=== PATIENT | female | born 1950 | race Caucasian/White ===

== ENCOUNTER 2017-09-08 15:56 | Emergency (ER) | payer MEDICARE ==
[2017-09-08] MEDS ORDERED: Sodium Chloride 0.9% 10 ML Syringe FLUSH PRN (16:03)
[2017-09-08] MEDS ORDERED: Acetaminophen 325 MG Tab PO ONE (16:05)
[2017-09-08 16:07] VITALS: BP 166/83
--- NOTE | 2017-09-08 17:39 | EDM.PDOC ---
ED HPI GENERAL MEDICAL PROBLEM - General Chief Complaint: Neurological Problem Stated Complaint: [facility] Time Seen by Provider: 09/08/17 16:02 Source of Information: Reports: Patient, EMS, Family, Provider History Limitations: Reports: No Limitations - History of Present Illness INITIAL COMMENTS - FREE TEXT/NARRATIVE: The patient presents with a headache. This started about 1 week ago. Her last time known well was FridaySeptember 01 at around 8am. She has some nausea and vomiting. She has no numbness or weakness. She has no blurred vision or double vision. She has no fever, chills, cough, congestion or runny nose, chest pain, shortness of breath, and abdominal pain. She did have some nausea and she vomited. She has a history of TIAs. Her says she has been seeing things and confused. She also has been very weak and he needs a wheel chair at home. Onset: Gradual Duration: Week(s): (1) Location: Reports: Head Quality: Reports: Ache Severity: Moderate Improves with: Reports: None Worsens with: Reports: None Associated Symptoms: Reports: Headaches, Nausea/Vomiting. Denies: Chest Pain, Fever/Chills, Shortness of Breath Treatments BOTTOM FINISHER: Reports: IV/IO Headache Pain Score (Numeric/FACES): 8 - Related Data Allergies Allergy/AdvReac Type Severity Reaction Status Date / Time No Known Allergies Allergy Verified 09/08/17 16:03 Home Meds: Home Meds Allopurinol [Zyloprim] 100 mg PO DAILY 09/08/17 [History] Aspirin [Halfprin] 81 mg PO DAILY 09/08/17 [History] Canagliflozin [Invokana] 300 mg PO DAILY 09/08/17 [History] Chlorthalidone 25 mg PO DAILY 09/08/17 [History] Clopidogrel [Plavix] 75 mg PO DAILY 09/08/17 [History] Colchicine 0.6 mg PO DAILY 09/08/17 [History] DULoxetine [Cymbalta] 30 mg PO DAILY 09/08/17 [History] Gabapentin [Neurontin] 400 mg PO TID 09/08/17 [History] Insulin Regular, Human [Humulin R U-500 Kwikpen] 500 unit SQ BID 09/08/17 [ History] Linaclotide [Linzess] 290 mcg PO DAILY 09/08/17 [History] Losartan [Cozaar] 100 mg PO DAILY 09/08/17 [History] Melatonin 5 mg PO BEDTIME 09/08/17 [History] Nystatin/Triamcin [Nystatin-Triamcinolone Cream] 60 gm TP BID 09/08/17 [History] Pantoprazole [ProTONIX] 40 mg PO DAILY 09/08/17 [History] Pramipexole [Mirapex] 1 tab PO TID 09/08/17 [History] Propranolol [Inderal LA 24 Hr] 80 mg PO DAILY 09/08/17 [History] Rosuvastatin [Crestor] 20 mg PO DAILY 09/08/17 [History] amLODIPine [Norvasc] 5 mg PO DAILY 09/08/17 [History] Past Medical History Cardiovascular History: Reports: High Cholesterol, Hypertension Gastrointestinal History: Reports: GERD Genitourinary History: Reports: UTI, Recurrent Endocrine/Metabolic History: Reports: Diabetes, Type II - Past Surgical History Cardiovascular Surgical History: Reports: Coronary Artery Bypass GI Surgical History: Reports: Appendectomy, Cholecystectomy Social & Family History - Tobacco Use Smoking Status *Q: Never Smoker Years of Tobacco use: 15 Used Tobacco, but Quit: Yes Month Tobacco Last Used: 2007 - Alcohol Use Days Per Week of Alcohol Use: 0 - Recreational Drug Use Recreational Drug Use: No ED ROS GENERAL - Review of Systems Review Of Systems: See Below Constitutional: Reports: No Symptoms HEENT: Reports: No Symptoms Respiratory: Reports: No Symptoms Cardiovascular: Reports: No Symptoms Endocrine: Reports: No Symptoms GI/Abdominal: Reports: Nausea, Vomiting. Denies: Abdominal Pain, Diarrhea : Reports: No Symptoms Musculoskeletal: Reports: No Symptoms ED EXAM, NEURO - Physical Exam Exam: See Below Exam Limited By: No Limitations General Appearance: Alert, No Apparent Distress Eye Exam: Bilateral Eye: EOMI Ears: Normal External Exam Nose: Normal Inspection Head Exam: Atraumatic, Normocephalic Neck: Normal Inspection Respiratory/Chest: No Respiratory Distress, Lungs Clear, Normal Breath Sounds Cardiovascular: Regular Rate, Rhythm, No Edema, No Murmur GI/Abdominal: Soft, Non-Tender, No Organomegaly, No Mass Neurological: Alert, No Motor/Sensory Deficits, Oriented x 3 Extremities: Normal Inspection EKG INTERPRETATION EKG Date: 09/08/17 Time: 16:19 Rhythm: Other (Sinus tachycardia) Rate (Beats/Min): 102 [place]: Normal P-Wave: Present QRS: Normal ST-T: Depressed (in I and aVL) QT: Normal Course - Vital Signs Last Recorded V/S: Last Vital Signs Temp 97.2 F 09/08/17 16:03 Pulse 100 09/08/17 16:03 Resp 16 09/08/17 16:03 BP 166/83 H 09/08/17 16:03 Pulse Ox 95 09/08/17 16:03 - Orders/Labs/Meds Orders: Active Orders 24 hr Category Date Time Status Accu Check [Blood Glucose Check, Bedside] [RC] ONETIME Care 09/08/17 16:18 Active Cardiac Monitoring [RC] . DIRECTED Care 09/08/17 16:03 Active EKG Documentation Completion [RC] STAT Care 09/08/17 16:04 Active Peripheral IV Care [RC] . DIRECTED Care 09/08/17 16:04 Active Head wo Cont [CT] Stat Exams 09/08/17 16:04 Taken Sodium Chloride 0.9% [Saline Flush] Med 09/08/17 16:03 Active 10 ml FLUSH ASDIRECTED PRN Peripheral IV Insertion Adult [OM.PC] Stat Oth 09/08/17 16:03 Ordered Medication Orders Sodium Chloride (Saline Flush) 10 ml FLUSH ASDIRECTED PRN PRN Reason: Keep Vein Open Last Admin: 09/08/17 16:16 Dose: 10 ml Labs: Laboratory Tests 09/08/17 09/08/17 09/08/17 Range/Units 16:20 16:31 16:31 WBC 11.12 H (3.98-10.04) K/mm3 RBC 6.32 H (3.98-5.22) M/mm3 Hgb 15.9 H (11.2-15.7) gm/L Hct 47.9 H (34.1-44.9) % MCV 75.8 L (79.4-94.8) fl MCH 25.2 L (25.6-32.2) pg MCHC 33.2 (32.2-35.5) g/dl RDW Std Deviation 45.8 (36.4-46.3) fL Plt Count 243 (182-369) K/mm3 MPV 9.6 (9.4-12.3) fl Neut % (Auto) 80.2 H (34.0-71.1) % Lymph % (Auto) 9.1 L (19.3-51.7) % [place] % (Auto) 10.0 (4.7-12.5) % Eos % (Auto) 0.2 L (0.7-5.8) Baso % (Auto) 0.2 (0.1-1.2) % Neut # (Auto) 8.93 H (1.56-6.13) K/mm3 Lymph # (Auto) 1.01 L (1.18-3.74) K/mm3 [place] # (Auto) 1.11 H (0.24-0.36) K/mm3 Eos # (Auto) 0.02 L (0.04-0.36) K/mm3 Baso # (Auto) 0.02 (0.01-0.08) K/mm3 Manual Slide Review Abnormal smear PT 10.8 (8.0-13.0) SECONDS INR 1.01 APTT 27 (22-36) SECONDS ABG Carboxyhemoglobin (0.00-1.50) %THgb Sodium (136-145) mEq/L Potassium (3.5-5.1) mEq/L Chloride (98-107) mEq/L Carbon Dioxide (21-32) mEq/L Anion Gap (5-15) BUN (7-18) mg/dL Creatinine (0.55-1.02) mg/dL Est Cr Clr Drug Dosing mL/min Estimated GFR (MDRD) (>60) mL/min BUN/Creatinine Ratio (14-18) Glucose (80-115) mg/dL POC Glucose 226 H (80-115) mg/dL Calcium (8.5-10.1) mg/dL Total Bilirubin (0.2-1.0) mg/dL AST (15-37) U/L ALT (14-59) U/L Alkaline Phosphatase (46-116) U/L Troponin I (0.00-0.056) ng/mL Total Protein (6.4-8.2) g/dl Albumin (3.4-5.0) g/dl Globulin gm/dL Albumin/Globulin Ratio (1-2) 09/08/17 09/08/17 Range/Units 16:31 16:31 WBC (3.98-10.04) K/mm3 RBC (3.98-5.22) M/mm3 Hgb (11.2-15.7) gm/L Hct (34.1-44.9) % MCV (79.4-94.8) fl MCH (25.6-32.2) pg MCHC (32.2-35.5) g/dl RDW Std Deviation (36.4-46.3) fL Plt Count (182-369) K/mm3 MPV (9.4-12.3) fl Neut % (Auto) (34.0-71.1) % Lymph % (Auto) (19.3-51.7) % [place] % (Auto) (4.7-12.5) % Eos % (Auto) (0.7-5.8) Baso % (Auto) (0.1-1.2) % Neut # (Auto) (1.56-6.13) K/mm3 Lymph # (Auto) (1.18-3.74) K/mm3 [place] # (Auto) (0.24-0.36) K/mm3 Eos # (Auto) (0.04-0.36) K/mm3 Baso # (Auto) (0.01-0.08) K/mm3 Manual Slide Review PT (8.0-13.0) SECONDS INR APTT (22-36) SECONDS ABG Carboxyhemoglobin 2.3 H (0.00-1.50) %THgb Sodium 133 L (136-145) mEq/L Potassium 3.9 (3.5-5.1) mEq/L Chloride 98 (98-107) mEq/L Carbon Dioxide 21 (21-32) mEq/L Anion Gap 17.9 H (5-15) BUN 23 H (7-18) mg/dL Creatinine 1.3 H (0.55-1.02) mg/dL Est Cr Clr Drug Dosing 46.65 mL/min Estimated GFR (MDRD) 41 (>60) mL/min BUN/Creatinine Ratio 17.7 (14-18) Glucose 244 H (80-115) mg/dL POC Glucose (80-115) mg/dL Calcium 11.2 H (8.5-10.1) mg/dL Total Bilirubin 0.9 (0.2-1.0) mg/dL AST 15 (15-37) U/L ALT 11 L (14-59) U/L Alkaline Phosphatase 89 (46-116) U/L Troponin I 0.036 (0.00-0.056) ng/mL Total Protein 7.6 (6.4-8.2) g/dl Albumin 3.5 (3.4-5.0) g/dl Globulin 4.1 gm/dL Albumin/Globulin Ratio 0.9 L (1-2) Meds: Medications Generic Name Dose Route Start Last Admin Trade Name Freq PRN Reason Stop Dose Admin Sodium Chloride 10 ml 09/08/17 16:03 09/08/17 16:16 Saline Flush FLUSH 10 ml ASDIRECTED PRN Administration Keep Vein Open Discontinued Medications Generic Name Dose Route Start Last Admin Trade Name Freq PRN Reason Stop Dose Admin Acetaminophen 975 mg 09/08/17 16:05 09/08/17 16:15 Tylenol PO 09/08/17 16:06 975 mg NOW ONE Administration - Re-Assessments/Exams Free Text/Narrative Re-Assessment/Exam: 09/08/17 17:49 I ordered an IV saline lock, labs, EKG, and a CT of her head. Her EKG shows a sinus tachycardia with slight ST depression to I and aVL. The CT of her head shows hypoattenuation in the right posterior parietal and occipital lobes consistent with acutely evolving infarction. Stable 11mm nodule in the right retro-orbital region was present on the prior study. She is having a CVA but she has very little deficits. Her WBC was slightly elevated at 11.12. Her Hgb was elevated at 15.9. Her PT, INR, and PTT look good. Her ABG was elevated at 2.5. Normal for us is 1.5. She does not smoke so I am not sure why that is elevated. She says she has been around a stove but her says no. Her Na was a little low at 133. Her troponin was negative. Her creatinine was elevated at 1.3. Her glucose was elevated at 244. I called [facility] and talked with the neurologist math and science division chair Dr Clement and the hospitalist Dr Leavitt and they accepted the patient. Departure - Departure Time of Disposition: 18:00 Disposition: DC/Tfer to Acute Hospital 02 Condition: Poor Clinical Impression: CVA (cerebral vascular accident) Qualifiers: CVA mechanism: unspecified Qualified Code(s): I63.9 - Cerebral infarction, unspecified - Discharge Information Referrals: Dmitry Horton MD [Primary Care Provider] - Forms: ED Department Discharge - My Orders Last 24 Hours: My Active Orders 09/08/17 16:03 Cardiac Monitoring [RC] . DIRECTED Sodium Chloride 0.9% [Saline Flush] 10 ml FLUSH ASDIRECTED PRN Peripheral IV Insertion Adult [OM.PC] Stat 09/08/17 16:04 EKG Documentation Completion [RC] STAT Peripheral IV Care [RC] . DIRECTED Head wo Cont [CT] Stat 09/08/17 16:18 Accu Check [Blood Glucose Check, Bedside] [RC] ONETIME - Assessment/Plan Last 24 Hours: My Active Orders 09/08/17 16:03 Cardiac Monitoring [RC] . DIRECTED Sodium Chloride 0.9% [Saline Flush] 10 ml FLUSH ASDIRECTED PRN Peripheral IV Insertion Adult [OM.PC] Stat 09/08/17 16:04 EKG Documentation Completion [RC] STAT Peripheral IV Care [RC] . DIRECTED Head wo Cont [CT] Stat 09/08/17 16:18 Accu Check [Blood Glucose Check, Bedside] [RC] ONETIME
--- NOTE | 2017-09-09 07:05 | CT ---
Head CT Technique: Multiple axial sections through the brain were obtained. Intravenous contrast was not utilized. Comparison: Previous head CT exam of 05/14/15. Findings: Low density lesion identified within the posterior right parietal and occipital lobes compatible with fairly recent infarct. This is an interval change from previous head CT exam. Ventricles along with basal cisterns and sulci over the convexities are within normal limits for the patient's age. No other abnormal parenchymal densities are seen. No evidence of intracranial hemorrhage. No midline shift is seen. Soft tissue abnormality seen posterior to the right orbit measuring 1.1 cm in size which appears stable back to MRI exam of 0 01/04/14 and likely represents a benign lesion such as small meningioma. Atherosclerotic calcification seen within the vertebral vessels and within the carotid siphon. Visualized sinuses are clear. No acute calvarial abnormality is seen. Impression: 1. Fairly recent infarct felt to be present within the posterior right parietal and occipital lobe as an interval change from previous exam. 2. Retrobulbar mass on the right side which appears stable back to prior MRI exams of 01/04/14 and likely represents benign tumor such as meningioma. 3. No intracranial hemorrhage or other abnormality is identified. Diagnostic code #5 Agree with preliminary report issued by [employer] ([employer] preliminary report dictated on 09/08/17, 6:18 PM Central Time)
== END 2017-09-08 18:30 ==
LOC: JD.ED 15:56
DX: I63.9 Cerebral infarction, unspecified (principal); I10 Essential (primary) hypertension; E78.00 Pure hypercholesterolemia, unspecified; K21.9 Gastro-esophageal reflux disease without esophagitis; E11.9 Type 2 diabetes mellitus without complications; Z95.1 Presence of aortocoronary bypass graft; Z87.891 Personal history of nicotine dependence; Z79.82 Long term (current) use of aspirin; Z79.02 Long term (current) use of antithrombotics/antiplatelets; Z79.4 Long term (current) use of insulin; Z79.899 Other long term (current) drug therapy
CPT/HCPCS: 36415; 70450; 80053; 82375; 82962; 84484; 85025; 85610; 85730; 93005; 99285; A9270; J7050; 93010

== ENCOUNTER 2018-03-19 14:28 | Emergency (ER) | payer MEDICARE ==
[2018-03-19 15:25] VITALS: BP 143/62
--- NOTE | 2018-03-19 16:35 | EDM.PDOC ---
ED HPI GENERAL MEDICAL PROBLEM - General Chief Complaint: Lower Extremity Injury/Pain Stated Complaint: R LEG PAIN/POSS BLOOD CLOT Time Seen by Provider: 03/19/18 15:56 Source of Information: Reports: Patient History Limitations: Reports: No Limitations - History of Present Illness INITIAL COMMENTS - FREE TEXT/NARRATIVE: 67 year old female presents for evaluation of a possible blood clot in the right leg. Patient reports pain around the right patella and bruising to the right inner lower leg. Denies any trauma to the leg. No history of knee problems or arthritis. States the pain has been present for the last 2-3 days. Contacted her PCPs office today who instructed her to come to the ER to rule out a DVT. Patient reports pain around the right patella with radiation towards the right groin. No leg swelling. Bruise is to the right medial proximal lower leg. Denies any chest pain, shortness of breath, lightheadedness, dizziness, syncope, numbness or tingling to the leg. Patient reports she has a history of DVT. Reports she had a DVT years ago. Reports this was attributed to medication she was on at the time. States she was on coumadin for 10 years. She is no longer on coumadin at this time. Patient has a past medical history of breast cancer, currently in remission. Right Leg Pain Score (Numeric/FACES): 6 - Related Data Allergies Allergy/AdvReac Type Severity Reaction Status Date / Time No Known Allergies Allergy Verified 03/19/18 15:19 Home Meds: Home Meds Allopurinol [Zyloprim] 100 mg PO DAILY 09/08/17 [History] Aspirin [Halfprin] 81 mg PO DAILY 09/08/17 [History] Canagliflozin [Invokana] 300 mg PO DAILY 09/08/17 [History] Chlorthalidone 25 mg PO DAILY 09/08/17 [History] Clopidogrel [Plavix] 75 mg PO DAILY 09/08/17 [History] Colchicine 0.6 mg PO DAILY 09/08/17 [History] DULoxetine [Cymbalta] 30 mg PO DAILY 09/08/17 [History] Gabapentin [Neurontin] 400 mg PO TID 09/08/17 [History] Insulin Regular, Human [Humulin R U-500 Kwikpen] 500 unit SQ BID 09/08/17 [ History] Linaclotide [Linzess] 290 mcg PO DAILY 09/08/17 [History] Losartan [Cozaar] 100 mg PO DAILY 09/08/17 [History] Melatonin 5 mg PO BEDTIME 09/08/17 [History] Nystatin/Triamcin [Nystatin-Triamcinolone Cream] 60 gm TP BID 09/08/17 [History] Pantoprazole [ProTONIX] 40 mg PO DAILY 09/08/17 [History] Pramipexole [Mirapex] 1 tab PO TID 09/08/17 [History] Propranolol [Inderal LA 24 Hr] 80 mg PO DAILY 09/08/17 [History] Rosuvastatin [Crestor] 20 mg PO DAILY 09/08/17 [History] amLODIPine [Norvasc] 5 mg PO DAILY 09/08/17 [History] Past Medical History HEENT History: Reports: Impaired Vision Cardiovascular History: Reports: High Cholesterol, Hypertension Gastrointestinal History: Reports: Cholelithiasis, GERD Genitourinary History: Reports: UTI, Recurrent 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: Neurological History: Reports: Neuropathy, Peripheral Psychiatric History: Reports: Anxiety Endocrine/Metabolic History: Reports: Diabetes, Type II Oncologic (Cancer) History: Reports: Breast - Past Surgical History HEENT Surgical History: Reports: Cataract Surgery, Tonsillectomy Cardiovascular Surgical History: Reports: Coronary Artery Bypass GI Surgical History: Reports: Appendectomy, Cholecystectomy Other GI Surgeries/Procedures: gastric banding Other Female Surgeries/Procedures: lumpectomy of the right breast for CA Other Musculoskeletal Surgeries/Procedures:: carpal tunnel isaias wrists Social & Family History - Tobacco Use Smoking Status *Q: Former Smoker Used Tobacco, but Quit: Yes Month/Year Tobacco Last Used: 20 years ago - Caffeine Use Caffeine Use: Reports: Coffee, Soda - Recreational Drug Use Recreational Drug Use: No Review of Systems - Review of Systems Review Of Systems: See Below Respiratory: Denies: Shortness of Breath Cardiovascular: Denies: Chest Pain, Lightheadedness Musculoskeletal: Reports: Leg Pain (Right) Skin: Reports: Bruising (Right leg) Neurological: Denies: Numbness, Syncope, Tingling ED EXAM, GENERAL - Physical Exam Exam: See Below Exam Limited By: No Limitations General Appearance: Alert, WD/WN, No Apparent Distress Respiratory/Chest: No Respiratory Distress, Lungs Clear, Normal Breath Sounds Cardiovascular: Normal Peripheral Pulses, Regular Rate, Rhythm, No Murmur Extremities: Normal Inspection, Other (No swelling to the right lower leg; identifies pain around the right patella). No: Olya's Sign Neurological: Alert, Oriented, Normal Cognition Psychiatric: Normal Affect, Normal Mood Skin Exam: Warm, Dry, Normal Color, Ecchymosis (approximately 3cm in diameter ecchymosis to the right lower leg, proximal medial area) Course - Vital Signs Last Recorded V/S: Last Vital Signs Temp 97.4 F 03/19/18 15:19 Pulse 53 L 03/19/18 15:19 Resp 15 03/19/18 15:19 BP 143/62 H 03/19/18 15:19 Pulse Ox 97 03/19/18 15:19 - Orders/Labs/Meds Labs: Laboratory Tests 03/19/18 03/19/18 Range/Units 16:40 16:40 WBC 5.98 (3.98-10.04) K/mm3 RBC 5.43 H (3.98-5.22) M/mm3 Hgb 13.3 (11.2-15.7) gm/L Hct 43.2 (34.1-44.9) % MCV 79.6 (79.4-94.8) fl MCH 24.5 L (25.6-32.2) pg MCHC 30.8 L (32.2-35.5) g/dl RDW Std Deviation 43.4 (36.4-46.3) fL Plt Count 217 (182-369) K/mm3 MPV 9.2 L (9.4-12.3) fl Neut % (Auto) 65.2 (34.0-71.1) % Lymph % (Auto) 20.6 (19.3-51.7) % [place] % (Auto) 10.5 (4.7-12.5) % Eos % (Auto) 3.0 (0.7-5.8) Baso % (Auto) 0.5 (0.1-1.2) % Neut # (Auto) 3.90 (1.56-6.13) K/mm3 Lymph # (Auto) 1.23 (1.18-3.74) K/mm3 [place] # (Auto) 0.63 H (0.24-0.36) K/mm3 Eos # (Auto) 0.18 (0.04-0.36) K/mm3 Baso # (Auto) 0.03 (0.01-0.08) K/mm3 PT 11.0 (9.5-12.1) SECONDS INR 1.01 APTT 29 (24-31) SECONDS - Radiology Interpretation Free Text/Narrative:: Right lower extremity deep venous ultrasound: Duplex and color flow imaging was obtained of the right common femoral, proximal greater saphenous, superficial femoral, popliteal, posterior tibial and peroneal veins. Left common femoral vein was also evaluated. Findings: Peroneal vein not well seen due to leg size and mild subcutaneous edema. Other veins show normal phasic flow, augmentation and compression. Impression: 1. Peroneal vein not well seen, other deep veins within the right lower extremity show no venous thrombosis. Left common femoral vein appears patent. 2. Mild subcutaneous edema within the right lower extremity. - Re-Assessments/Exams Free Text/Narrative Re-Assessment/Exam: 03/19/18 18:19 Reviewed the labs and imaging with the patient. Will have her follow up in clinic. Likely musculoskeletal in origin, however, the etiology of her knee pain is not entirely clear at this point. Will discharge home at this time. Discharge instructions as documented. Departure - Departure Time of Disposition: 18:21 Disposition: Home, Self-Care 01 Condition: Fair Clinical Impression: Ecchymosis, Leg pain - Discharge Information *PRESCRIPTION DRUG MONITORING PROGRAM REVIEWED*: No *COPY OF PRESCRIPTION DRUG MONITORING REPORT IN PATIENT JUAN CARLOS: No Referrals: Dmitry Horton MD [Primary Care Provider] - Forms: ED Department Discharge Additional Instructions: may take Tylenol or Motrin as needed for pain. Continue use heat to the sore areas. Follow-up with your primary care next week. Rest, activity as tolerated. Position to the ER if your symptoms change or worsen.
--- NOTE | 2018-03-19 17:34 | US ---
Right lower extremity deep venous ultrasound: Duplex and color flow imaging was obtained of the right common femoral, proximal greater saphenous, superficial femoral, popliteal, posterior tibial and peroneal veins. Left common femoral vein was also evaluated. Findings: Peroneal vein not well seen due to leg size and mild subcutaneous edema. Other veins show normal phasic flow, augmentation and compression. Impression: 1. Peroneal vein not well seen, other deep veins within the right lower extremity show no venous thrombosis. Left common femoral vein appears patent. 2. Mild subcutaneous edema within the right lower extremity. Diagnostic code #2
== END 2018-03-19 18:30 | disposition home or self-care (01) ==
LOC: JD.ED 14:28
DX: S80.11XA Contusion of right lower leg, initial encounter (principal); I10 Essential (primary) hypertension; E11.9 Type 2 diabetes mellitus without complications; C50.919 Malignant neoplasm of unspecified site of unspecified female breast; Z79.01 Long term (current) use of anticoagulants; Z79.82 Long term (current) use of aspirin; Z79.4 Long term (current) use of insulin; Z79.899 Other long term (current) drug therapy; Z87.891 Personal history of nicotine dependence; X58.XXXA Exposure to other specified factors, initial encounter
CPT/HCPCS: 36415; 85025; 85610; 85730; 93971-26-RT; 93971-RT; 99284; 99284-25

== ENCOUNTER 2019-07-21 15:25 | Emergency (ER) | payer MEDICARE, OTHER ==
[2019-07-21 15:31] VITALS: BP 151/61; PULSE 59
--- NOTE | 2019-07-21 15:31 | EDM.PDOC ---
ED HPI GENERAL MEDICAL PROBLEM - General Chief Complaint: Lower Extremity Injury/Pain Stated Complaint: [facility] Time Seen by Provider: 07/21/19 15:30 - History of Present Illness INITIAL COMMENTS - FREE TEXT/NARRATIVE: 68-year-old female transferred to the emergency room by EMS after a fall and injuring her right leg at home. The patient was walking on a hard floor slipped on some water landed on the top of her foot and her kneecap. She has not tried to ambulate on it since then. This occurred shortly before being picked up by EMS patient has pain in her distal femur around her knee and her foot. The foot is the worst. Patient denies any numbness or tingling in her foot or leg. She denies any problems getting dizzy or anything else that could have contributed to her fall. The patient does use a walker at times she prefers to use her cane however. Right Knee Pain Score (Numeric/FACES): 7 - Related Data Allergies Allergy/AdvReac Type Severity Reaction Status Date / Time No Known Allergies Allergy Verified 07/21/19 15:31 Home Meds: Home Meds Clopidogrel [Plavix] 75 mg PO DAILY 09/08/17 [History] DULoxetine [Cymbalta] 60 mg PO DAILY 09/08/17 [History] Gabapentin [Neurontin] 200 mg PO TID 09/08/17 [History] Losartan [Cozaar] 100 mg PO DAILY 09/08/17 [History] Melatonin 5 mg PO BEDTIME 09/08/17 [History] Pantoprazole [ProTONIX] 40 mg PO DAILY 09/08/17 [History] Pramipexole [Mirapex] 1 tab PO TID 09/08/17 [History] Rosuvastatin [Crestor] 40 mg PO BEDTIME 09/08/17 [History] allopurinoL [Zyloprim] 100 mg PO DAILY 09/08/17 [History] Celecoxib [CeleBREX] 200 mg PO DAILY 07/21/19 [History] Estrogens, Conjugated [Premarin Vaginal Crm] 0.5 mg VAG ASDIRECTED 07/21/19 [ History] Furosemide [Lasix] 20 mg PO DAILY 07/21/19 [History] Insulin Degludec [Tresiba] 90 units SQ BEDTIME 07/21/19 [History] Insulin Lispro [HumaLOG] 0 units SQ ASDIRECTED 07/21/19 [History] Insulin Lispro [HumaLOG] 0 units SQ BEDTIME 07/21/19 [History] Insulin Lispro [Humalog] 0 units SQ TIDMEALS 07/21/19 [History] Metoprolol Tartrate [Lopressor] 50 mg PO DAILY 07/21/19 [History] amLODIPine [Norvasc] 10 mg PO DAILY 07/21/19 [History] Past Medical History HEENT History: Reports: Impaired Vision Cardiovascular History: Reports: High Cholesterol, Hypertension Gastrointestinal History: Reports: Cholelithiasis, GERD Genitourinary History: Reports: UTI, Recurrent 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: Neurological History: Reports: Neuropathy, Peripheral Psychiatric History: Reports: Anxiety Endocrine/Metabolic History: Reports: Diabetes, Type II Oncologic (Cancer) History: Reports: Breast - Past Surgical History HEENT Surgical History: Reports: Cataract Surgery, Tonsillectomy Cardiovascular Surgical History: Reports: Coronary Artery Bypass GI Surgical History: Reports: Appendectomy, Cholecystectomy Other GI Surgeries/Procedures: gastric banding Other Female Surgeries/Procedures: lumpectomy of the right breast for CA Other Musculoskeletal Surgeries/Procedures:: carpal tunnel isaias wrists Social & Family History - Caffeine Use Caffeine Use: Reports: Coffee, Soda Review of Systems - Review of Systems Review Of Systems: See Below Constitutional: Reports: No Symptoms Respiratory: Reports: No Symptoms Cardiovascular: Reports: No Symptoms Genitourinary: Reports: No Symptoms Musculoskeletal: Reports: Leg Pain Neurological: Reports: No Symptoms Psychiatric: Reports: No Symptoms ED EXAM, GENERAL - Physical Exam Exam: See Below Exam Limited By: No Limitations General Appearance: Alert, No Apparent Distress Head: Atraumatic, Normocephalic Neck: Normal Inspection, Supple, Non-Tender, Full Range of Motion. No: Lymphadenopathy (L), Lymphadenopathy (R) Respiratory/Chest: No Respiratory Distress, Lungs Clear, Normal Breath Sounds Cardiovascular: Regular Rate, Rhythm, No Edema, No Murmur GI/Abdominal: Normal Bowel Sounds, Soft, Non-Tender, Pelvis Stable Back Exam: Normal Inspection. No: CVA Tenderness (L), CVA Tenderness (R), Muscle Spasm, Paraspinal Tenderness, Vertebral Tenderness Extremities: Other (Patient for right lower extremity shows no discomfort around the hip however the distal femur has some generalized tenderness with it. The knee is fairly tender she is got an abrasion over the lateral aspect of the patella. The proximal lower leg has some vague discomfort. The ankle seems to be okay the whole top of her foot seems to be a little sore. The ball of her foot is nontender with palpation fifth metatarsal palpates nontender as does the remainder of the foot neurovascular status appears to be grossly intact ) Course - Vital Signs Last Recorded V/S: Last Vital Signs Temp 36.6 C 07/21/19 15:27 Pulse 59 L 07/21/19 15:27 Resp 19 07/21/19 15:27 BP 151/61 H 07/21/19 15:27 Pulse Ox 94 L 07/21/19 15:27 - Re-Assessments/Exams Free Text/Narrative Re-Assessment/Exam: 07/21/19 17:58 X-ray examination of the femur knee including the kneecap as she has had a history of a fracture of the patella lower leg and foot do not reveal any acute fractures she is got an old possible compression type fracture of the navicular she is got significant arthritis elsewhere in the foot in the knee and ankle and in the hip. The patient can ambulate with a walker she was able to go from exam room 3 to the bathroom and back without difficulty we will discharge her home at this point. Tylenol for discomfort Departure - Departure Time of Disposition: 17:43 Disposition: Home, Self-Care 01 Clinical Impression: Contusion of right knee, Contusion of right foot - Discharge Information Instructions: Foot Contusion, [id number] Referrals: PCP,Unknown [Ordering Only Provider] - Forms: ED Department Discharge Additional Instructions: Return to the emergency room with any questions problems or worsening symptoms. Always use your walker when moving around to help with your balance and stability. Use Tylenol 650 mg up to 5 times a day for discomfort. Follow-up with your regular healthcare provider as needed. Sepsis Event Note - Evaluation Sepsis Screening Result: No Definite Risk - Focused Exam Vital Signs: Vital Signs Temp Pulse Resp BP Pulse Ox 07/21/19 15:27 36.6 C 59 L 19 151/61 H 94 L Date Exam was Performed: 07/21/19 Time Exam was Performed: 17:59
--- NOTE | 2019-07-21 17:08 | CR ---
Right tibia and fibula: AP and lateral views of the right tibia and fibula were obtained. Comparison: No prior tibia or fibula exam. Findings within the foot as described in foot exam. Findings within the knee as described on knee exam. Osteopenia is noted. No acute fracture or dislocation is seen. Vascular calcification is noted. Impression: 1. Nothing acute is seen within the right tibia or fibula. Diagnostic code #2 This report was dictated in [place] Standard Time
--- NOTE | 2019-07-21 17:08 | CR ---
Right foot: 3 views of the right foot were obtained. Comparison: No previous study. Collapse of the navicular bone is seen with what appears to be a chronic fracture. Plantar spur is noted. Degenerative change is noted within the mid foot. Osteoporosis is noted. Impression: 1. 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 2. Degenerative change and osteopenia. 3. Calcaneal spur. 4. Nothing acute is definitely appreciated. Diagnostic code #3 This report was dictated in [place] Standard Time
--- NOTE | 2019-07-21 17:08 | CR ---
Right femur: AP and lateral views of the right femur were obtained. Comparison: No prior femur exam. Mild joint space narrowing is noted within the right hip. Bony structures are osteopenic. No discrete fracture or other bony abnormality is seen. Vascular calcification is noted. Impression: 1. Findings as noted above. 2. Nothing acute is appreciated on 2 view right femur study. Diagnostic code #2 This report was dictated in [place] Standard Time
--- NOTE | 2019-07-21 17:08 | CR ---
Right knee: AP and lateral views of the right knee were obtained. Comparison: No prior knee exam Slight chondrocalcinosis is noted within the lateral and medial meniscus. Minimal medial joint space narrowing is seen. No joint effusion is seen. No acute fracture or other abnormality is seen. Osteopenia is present. Impression: 1. Degenerative change as noted above with osteopenia. 2. Nothing acute is appreciated on 2 view right knee exam. Diagnostic code #2 This report was dictated in [place] Standard Time
== END 2019-07-21 17:50 | disposition home or self-care (01) ==
LOC: JD.ED 15:25
DX: S80.01XA Contusion of right knee, initial encounter (principal); S90.31XA Contusion of right foot, initial encounter; I10 Essential (primary) hypertension; E78.00 Pure hypercholesterolemia, unspecified; K21.9 Gastro-esophageal reflux disease without esophagitis; E11.40 Type 2 diabetes mellitus with diabetic neuropathy, unspecified; F41.9 Anxiety disorder, unspecified; Z79.899 Other long term (current) drug therapy; Z79.4 Long term (current) use of insulin; W01.0XXA Fall on same level from slipping, tripping and stumbling without subsequent striking against object, initial encounter; Y93.01 Activity, walking, marching and hiking
CPT/HCPCS: 73552-26-RT; 73552-RT; 73560-26-RT; 73560-RT; 73590-26-RT; 73590-RT; 73630-26-RT; 73630-RT; 99282; 99283-25

== ENCOUNTER 2019-11-28 20:42 | Emergency (ER) | payer MEDICARE, OTHER ==
[2019-11-28] MEDS ORDERED: Sodium Chloride 0.9% 10 ML Syringe FLUSH PRN (20:46)
[2019-11-28 20:55] VITALS: BP 121/71; PULSE 69
--- NOTE | 2019-11-28 21:11 | EDM.PDOC ---
ED HPI GENERAL MEDICAL PROBLEM - General Chief Complaint: General Stated Complaint: SHOULDER/RIBS/ARM PAIN/CHEST PAIN Time Seen by Provider: 11/28/19 20:45 Source of Information: Reports: Patient, RN Notes Reviewed History Limitations: Reports: No Limitations - History of Present Illness INITIAL COMMENTS - FREE TEXT/NARRATIVE: Patient is a 69-year-old female who presents to the ED for multiple complaints. Patient does reside at [facility] which [place] a [place] [facility] in [facility] or at least an assisted living facility. Patient notes that she developed all over body pain over the last few days, and today it had intensified. Patient is not complaining of any other sick-like symptoms, fever/ chills, cough/shortness of breath, nausea/vomiting/diarrhea. Patient states that she is having some chest discomfort, she states that all of her joints ache. Patient does not complain of any sort of specific urinary issues, but states she was told by the nurse at the manner that her symptoms were "the symptoms of a urinary tract infection". Patient is morbidly obese, and did require some assistance in transferring to the ER bed. Patient's primary care provider is Dr. Lima. Patient has an extensive past medical history, and takes multiple medications for this. Generalized Pain Score (Numeric/FACES): 5 - Related Data Allergies Allergy/AdvReac Type Severity Reaction Status Date / Time No Known Allergies Allergy Verified 11/28/19 20:55 Home Meds: Home Meds Clopidogrel [Plavix] 75 mg PO DAILY 09/08/17 [History] DULoxetine [Cymbalta] 60 mg PO DAILY 09/08/17 [History] Gabapentin [Neurontin] 200 mg PO TID 09/08/17 [History] Pantoprazole [ProTONIX] 40 mg PO DAILY 09/08/17 [History] Rosuvastatin [Crestor] 40 mg PO BEDTIME 09/08/17 [History] allopurinoL [Zyloprim] 100 mg PO DAILY 09/08/17 [History] Celecoxib [CeleBREX] 200 mg PO BEDTIME 07/21/19 [History] Insulin Degludec [Tresiba] 90 units SQ BEDTIME 07/21/19 [History] Insulin Lispro [HumaLOG] 0 units SQ ASDIRECTED 07/21/19 [History] Insulin Lispro [HumaLOG] 0 units SQ DAILY 07/21/19 [History] Insulin Lispro [Humalog] 20 units SQ DAILY 07/21/19 [History] Metoprolol Tartrate [Lopressor] 50 mg PO DAILY 07/21/19 [History] Amlodipine Besylate/Valsartan [Amlodipine-Valsartan 10-320 mg] 1 tab PO DAILY [History] Estrogens, Conjugated [Premarin Vaginal Crm] 1 applic VAG MOTH 11/28/19 [History ] Linaclotide [Linzess] 290 mcg PO DAILY 11/28/19 [History] Pramipexole [Mirapex] 0.125 mg PO TID 11/28/19 [History] hydroCHLOROthiazide [Hydrochlorothiazide] 25 mg PO DAILY 11/28/19 [History] Past Medical History HEENT History: Reports: Impaired Vision Cardiovascular History: Reports: High Cholesterol, Hypertension Gastrointestinal History: Reports: Cholelithiasis, GERD Genitourinary History: Reports: UTI, Recurrent 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: Neurological History: Reports: Neuropathy, Peripheral Psychiatric History: Reports: Anxiety Endocrine/Metabolic History: Reports: Diabetes, Type II Oncologic (Cancer) History: Reports: Breast - Infectious Disease History Infectious Disease History: Reports: Chicken Pox, Measles, Mumps - Past Surgical History HEENT Surgical History: Reports: Cataract Surgery, Tonsillectomy Cardiovascular Surgical History: Reports: Coronary Artery Bypass GI Surgical History: Reports: Appendectomy, Cholecystectomy Other GI Surgeries/Procedures: gastric banding Other Female Surgeries/Procedures: lumpectomy of the right breast for CA Other Musculoskeletal Surgeries/Procedures:: carpal tunnel isaias wrists Social & Family History - Family History Family Medical History: Noncontributory - Tobacco Use Smoking Status *Q: Never Smoker - Caffeine Use Caffeine Use: Reports: Coffee, Soda - Recreational Drug Use Recreational Drug Use: No - Living Situation & Occupation Living situation: Reports: Assisted Living ED ROS GENERAL - Review of Systems Review Of Systems: Comprehensive ROS is negative, except as noted in HPI. ED EXAM, GENERAL - Physical Exam Exam: See Below Exam Limited By: No Limitations General Appearance: Alert, WD/WN, No Apparent Distress, Lethargic (generalized) , Obese Eye Exam: Bilateral Eye: EOMI Ears: Normal External Exam Nose: Normal Inspection Throat/Mouth: Normal Inspection, Normal Lips, Normal Teeth, Normal Gums, Normal Oropharynx, Normal Voice, No Airway Compromise Head: Atraumatic, Normocephalic Neck: Normal Inspection Respiratory/Chest: No Respiratory Distress, Lungs Clear, Normal Breath Sounds, No Accessory Muscle Use, Chest Non-Tender Cardiovascular: Normal Peripheral Pulses, Regular Rate, Rhythm, No Murmur GI/Abdominal: Normal Bowel Sounds, Soft, Non-Tender, No Distention Extremities: Normal Inspection, Normal Capillary Refill Neurological: Alert, Oriented, Normal Cognition, No Motor/Sensory Deficits Psychiatric: Normal Affect, Normal Mood Skin Exam: Warm, Dry, Intact, Normal Color, No Rash EKG INTERPRETATION EKG Date: 11/28/19 Time: 20:51 Rhythm: NSR Rate (Beats/Min): 67 [place]: Normal P-Wave: Present QRS: Normal ST-T: Normal QT: Normal EKG Interpretation Comments: No obvious ischemia or acute ST changes noted, reviewed by myself and Dr. Burks. Course - Vital Signs Last Recorded V/S: Last Vital Signs Temp 98.1 F 11/28/19 20:52 Pulse 69 11/28/19 20:52 Resp 16 11/28/19 20:52 BP 121/71 11/28/19 20:52 Pulse Ox 94 L 11/28/19 20:52 - Orders/Labs/Meds Orders: Active Orders 24 hr Category Date Time Status EKG Documentation Completion [RC] STAT Care 11/28/19 20:46 Active Peripheral IV Care [RC] . DIRECTED Care 11/28/19 20:47 Active Chest 1V Frontal [CR] Stat Exams 11/28/19 20:46 Taken Sodium Chloride 0.9% [Saline Flush] Med 11/28/19 20:46 Active 10 ml FLUSH ASDIRECTED PRN Peripheral IV Insertion Adult [OM.PC] Stat Oth 11/28/19 20:46 Ordered Medication Orders Sodium Chloride (Saline Flush) 10 ml FLUSH ASDIRECTED PRN PRN Reason: Keep Vein Open Last Admin: 11/28/19 21:05 Dose: 10 ml Labs: Laboratory Tests 11/28/19 11/28/19 11/28/19 Range/Units 21:05 21:05 21:05 WBC 9.92 (3.98-10.04) K/mm3 RBC 5.12 (3.98-5.22) M/mm3 Hgb 12.8 (11.2-15.7) gm/dl Hct 41.0 (34.1-44.9) % MCV 80.1 (79.4-94.8) fl MCH 25.0 L (25.6-32.2) pg MCHC 31.2 L (32.2-35.5) g/dl RDW Std Deviation 47.8 H (36.4-46.3) fL Plt Count 220 (182-369) K/mm3 MPV 9.3 L (9.4-12.3) fl Neutrophils % (Manual) 76 H (40-60) % Band Neutrophils % 0 (0-10) % Lymphocytes % (Manual) 19 L (20-40) % Atypical Lymphs % 0 % Monocytes % (Manual) 4 (2-10) % Eosinophils % (Manual) 1 (0.7-5.8) % Basophils % (Manual) 0 L (0.1-1.2) Platelet Estimate Adequate Hypochromasia 1+ slight RBC Morph Comment Not Reportable PT 11.0 (9.7-12.0) SECONDS INR 1.01 APTT 29 (22-31) SECONDS Sodium 139 (136-145) mEq/L Potassium 3.5 (3.5-5.1) mEq/L Chloride 98 (98-107) mEq/L Carbon Dioxide 35 H (21-32) mEq/L Anion Gap 9.5 (5-15) BUN 28 H (7-18) mg/dL Creatinine 1.0 (0.55-1.02) mg/dL Est Cr Clr Drug Dosing 56.27 mL/min Estimated GFR (MDRD) 55 (>60) mL/min BUN/Creatinine Ratio 28.0 H (14-18) Glucose 129 H (80-115) mg/dL Calcium 9.8 (8.5-10.1) mg/dL Magnesium 1.6 L (1.8-2.4) mg/dl Total Bilirubin 0.7 (0.2-1.0) mg/dL AST 21 (15-37) U/L ALT 13 L (14-59) U/L Alkaline Phosphatase 152 H (46-116) U/L Troponin I 0.018 (0.00-0.056) ng/mL C-Reactive Protein (<1.0) mg/dL NT-Pro-B Natriuret Pep (0-125) pg/mL Total Protein 7.4 (6.4-8.2) g/dl Albumin 3.1 L (3.4-5.0) g/dl Globulin 4.3 gm/dL Albumin/Globulin Ratio 0.7 L (1-2) Urine Color (Yellow) Urine Appearance (Clear) Urine pH (5.0-8.0) Ur Specific [place] (1.005-1.030) Urine Protein (Negative) Urine Glucose (UA) (Negative) Urine Ketones (Negative) Urine Occult Blood (Negative) Urine Nitrite (Negative) Urine Bilirubin (Negative) Urine Urobilinogen (0.2-1.0) Ur Leukocyte Esterase (Negative) Urine RBC (0-5) /hpf Urine WBC (0-5) /hpf Ur Squamous Epith Cells (0-5) /hpf Urine Bacteria (FEW) /hpf Urine Mucus (FEW) /hpf 11/28/19 11/28/19 11/28/19 Range/Units 21:05 21:05 21:10 WBC (3.98-10.04) K/mm3 RBC (3.98-5.22) M/mm3 Hgb (11.2-15.7) gm/dl Hct (34.1-44.9) % MCV (79.4-94.8) fl MCH (25.6-32.2) pg MCHC (32.2-35.5) g/dl RDW Std Deviation (36.4-46.3) fL Plt Count (182-369) K/mm3 MPV (9.4-12.3) fl Neutrophils % (Manual) (40-60) % Band Neutrophils % (0-10) % Lymphocytes % (Manual) (20-40) % Atypical Lymphs % % Monocytes % (Manual) (2-10) % Eosinophils % (Manual) (0.7-5.8) % Basophils % (Manual) (0.1-1.2) Platelet Estimate Hypochromasia RBC Morph Comment PT (9.7-12.0) SECONDS INR APTT (22-31) SECONDS Sodium (136-145) mEq/L Potassium (3.5-5.1) mEq/L Chloride (98-107) mEq/L Carbon Dioxide (21-32) mEq/L Anion Gap (5-15) BUN (7-18) mg/dL Creatinine (0.55-1.02) mg/dL Est Cr Clr Drug Dosing mL/min Estimated GFR (MDRD) (>60) mL/min BUN/Creatinine Ratio (14-18) Glucose (80-115) mg/dL Calcium (8.5-10.1) mg/dL Magnesium (1.8-2.4) mg/dl Total Bilirubin (0.2-1.0) mg/dL AST (15-37) U/L ALT (14-59) U/L Alkaline Phosphatase (46-116) U/L Troponin I (0.00-0.056) ng/mL C-Reactive Protein 5.4 H* (<1.0) mg/dL NT-Pro-B Natriuret Pep 220 H (0-125) pg/mL Total Protein (6.4-8.2) g/dl Albumin (3.4-5.0) g/dl Globulin gm/dL Albumin/Globulin Ratio (1-2) Urine Color Yellow (Yellow) Urine Appearance Clear (Clear) Urine pH 6.0 (5.0-8.0) Ur Specific [place] 1.020 (1.005-1.030) Urine Protein Negative (Negative) Urine Glucose (UA) Trace H (Negative) Urine Ketones Negative (Negative) Urine Occult Blood Negative (Negative) Urine Nitrite Negative (Negative) Urine Bilirubin Negative (Negative) Urine Urobilinogen 2.0 H (0.2-1.0) Ur Leukocyte Esterase Negative (Negative) Urine RBC Not seen (0-5) /hpf Urine WBC Not seen (0-5) /hpf Ur Squamous Epith Cells 0-5 (0-5) /hpf Urine Bacteria Rare (FEW) /hpf Urine Mucus Few (FEW) /hpf Meds: Medications Generic Name Dose Route Start Last Admin Trade Name Freq PRN Reason Stop Dose Admin Sodium Chloride 10 ml 11/28/19 20:46 11/28/19 21:05 Saline Flush FLUSH 10 ml ASDIRECTED PRN Administration Keep Vein Open Discontinued Medications Generic Name Dose Route Start Last Admin Trade Name Freq PRN Reason Stop Dose Admin Furosemide 40 mg 11/28/19 21:56 Lasix IVPUSH 11/28/19 21:57 NOW ONE - Re-Assessments/Exams Free Text/Narrative Re-Assessment/Exam: 11/28/19 21:11 Patient presents to the ED for the evaluation of her multiple complaints. Have ordered EKG, chest x-ray, laboratory evaluation and urinalysis for further examination. 11/28/19 21:35 Patient's chest x-ray is done, and compared to a chest x-ray done in 2015. This does appear to be stable in nature with no acute findings as compared to the previous chest x-ray. I did review these findings with Dr. Burks as well. Official radiology read is pending. 11/28/19 22:10 The patient's laboratory evaluation has returned, there are no focal abnormalities appreciated that would warrant further emergent evaluation. Patient's magnesium level is mildly low, but can be supplemented in dietary intake. Urinalysis was clean with no sign of a UTI. White blood cell counts within normal limits. Patient's troponin was also within normal limits. Patient states that she is having some mild abdominal/chest wall/lower rib discomfort when moving and grabbing things, and now think she could have strained a muscle. Will discharge home with general recommendations and have her follow-up with Dr. Lima in the next few days for recheck of her labs and to make sure everything is getting better as expected. Departure - Departure Time of Disposition: 22:11 Disposition: Home, Self-Care 01 Condition: Good Clinical Impression: Generalized weakness, Physical deconditioning, Hypomagnesemia - Discharge Information *PRESCRIPTION DRUG MONITORING PROGRAM REVIEWED*: No *COPY OF PRESCRIPTION DRUG MONITORING REPORT IN PATIENT JUAN CARLOS: No Instructions: Weakness, Oitp-[id number], Hypomagnesemia Referrals: Dmitry Horton MD [Primary Care Provider] - Forms: ED Department Discharge Additional Instructions: You were evaluated in the ER today for your multiple complaints. An extensive laboratory work-up, chest x-ray and EKG were performed at tonight' s visit. The labs revealed that you have a slightly low magnesium level, that can be supplemented in dietary intake. You were given a handout for foods rich in magnesium. Your BNP, which is a marker for fluid retention was mildly elevated, you were given a one-time dose of Lasix in the ER for management of this. Your CRP which is a marker for inflammation was a mildly elevated as well. But it is likely that you have arthritis in joints, and that would be the cause of the mildly elevated CRP. EKG was within normal limits, and your chest x-ray demonstrated no sign of any acute consolidation that would be consideration for pneumonia. There were no other labs that were suggestive of any sort of bacterial infection or other acute processes at today's visit. Your urinalysis demonstrated no sign of a UTI. Recommend you follow-up with Dr. iLma in the next few days, to have him recheck some labs and to make sure that you are getting better as expected. Please return to the ER at any time however if symptoms should change or worsen. Sepsis Event Note - Evaluation Sepsis Screening Result: No Definite Risk - Focused Exam Vital Signs: Vital Signs Temp Pulse Resp BP Pulse Ox 11/28/19 20:52 98.1 F 69 16 121/71 94 L Date Exam was Performed: 11/28/19 Time Exam was Performed: 22:10 - My Orders Last 24 Hours: My Active Orders 11/28/19 20:46 EKG Documentation Completion [RC] STAT Chest 1V Frontal [CR] Stat Sodium Chloride 0.9% [Saline Flush] 10 ml FLUSH ASDIRECTED PRN Peripheral IV Insertion Adult [OM.PC] Stat 11/28/19 20:47 Peripheral IV Care [RC] . DIRECTED - Assessment/Plan Last 24 Hours: My Active Orders 11/28/19 20:46 EKG Documentation Completion [RC] STAT Chest 1V Frontal [CR] Stat Sodium Chloride 0.9% [Saline Flush] 10 ml FLUSH ASDIRECTED PRN Peripheral IV Insertion Adult [OM.PC] Stat 11/28/19 20:47 Peripheral IV Care [RC] . DIRECTED
[2019-11-28] MEDS ORDERED: Furosemide 40 MG/4 ML VIAL IVPUSH ONE (21:56)
--- NOTE | 2019-11-29 09:28 | CR ---
Chest: Portable view of the chest was obtained. Comparison: Prior chest x-ray of 02/17/15. Heart is felt to be mildly enlarged. Slight scarring is noted off the left cardiac apex which is stable. No acute parenchymal change is appreciated. Sternotomy is noted. Several fractured sternotomy wires are seen which appears stable. Surgical clips are seen within the right axillary region. Impression: 1. Findings as noted above. 2. Nothing acute is appreciated. Diagnostic code #2 This report was dictated in MDT
== END 2019-11-28 22:30 | disposition home or self-care (01) ==
LOC: JD.ED 20:42
DX: E83.42 Hypomagnesemia (principal); R53.81 Other malaise; E78.00 Pure hypercholesterolemia, unspecified; E66.01 Morbid (severe) obesity due to excess calories; Z68.41 Body mass index [BMI] 40.0-44.9, adult; I10 Essential (primary) hypertension; K21.9 Gastro-esophageal reflux disease without esophagitis; E11.42 Type 2 diabetes mellitus with diabetic polyneuropathy; F41.9 Anxiety disorder, unspecified; Z79.899 Other long term (current) drug therapy; Z79.4 Long term (current) use of insulin; Z79.02 Long term (current) use of antithrombotics/antiplatelets
CPT/HCPCS: 36415; 71045; 80053; 81001; 83735; 83880; 84484; 85007; 85027; 85610; 85730; 86140; 93005; 96374; 99285; J1940; 93010; 99283

== ENCOUNTER 2019-12-13 14:05 | Emergency (ER) | payer MEDICARE, OTHER ==
--- NOTE | 2019-12-13 14:36 | EDM.PDOC ---
ED HPI GENERAL MEDICAL PROBLEM - General Chief Complaint: General Stated Complaint: [facility] Time Seen by Provider: 12/13/19 14:31 Source of Information: Reports: Patient History Limitations: Reports: No Limitations - History of Present Illness INITIAL COMMENTS - FREE TEXT/NARRATIVE: 69-year-old female presents to the ED per [facility]. She presents with generalized pain syndrome particularly in her lower extremities. She was so weak today that she could not even get into her wheelchair for her son to bring her to the ER. She therefore had to be transported by ground ambulance. Patient reports that she is been gradually getting more more bone pain as she calls it in her lower extremities with generalized weakness and difficulty walking since about mid September. The last 3 weeks have been very intense. She has had multiple investigations with no definitive reasons for this. Is a history of right breast cancer treated by lumpectomy 20 years ago. Apparently she had 17 lymph node biopsies several of which were positive. She took estrogen blocking medication in various forms she did take this for a full 10 years. She missed her last mammogram. She denies shortness of breath. She has been an insulin-dependent diabetic for greater than 25 years. She was started on oral medications about 30 years ago for onset of diabetes. She thus has diffuse peripheral neuropathy and restless leg syndrome in both lower extremities. She has had some mild medication changes in the last couple of months with discontinuation of hydrochlorothiazide and the introduction of Lasix daily. She is on rosuvastatin or Crestor for high cholesterol. This is apparently is not a new medication. She has known multiple nodules on her thyroid gland but biopsies have been done and they are negative for cancer. She walks with the aid of a walker in the house but very minimally and is getting to the point that if she has to go anywhere she is wheelchair-bound. He does have urgency incontinence and because of her slow mobility often has accidents because she cannot make it to the toilet in time. She is also on a medication Linzess for irritable bowel syndrome and she states that this has improved her constipation problems. Patient is on Neurontin 200 mg 3 times daily for peripheral neuropathy lower extremities. Onset: Gradual Onset Date: 10/01/19 (He believes around mid September when the lockdown occurred for COVID virus.) Duration: Week(s):, Chronic, Getting Worse Location: Reports: Lower Extremity, Left, Lower Extremity, Right Quality: Reports: Ache, Other (Constant deep aching pain in both lower extremities) Severity: Severe (from femurs to the feet.) Improves with: Reports: None Worsens with: Reports: None Context: Reports: Other (Gradually worsening lower extremity pain with limited mobility over the last 2 and half months). Denies: Activity, Exercise, Lifting , Sick Contact, Trauma Associated Symptoms: Reports: Malaise, Shortness of Breath, Weakness. 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: Other (see below) (Usually acetaminophen.) Generalized Pain Score (Numeric/FACES): 5 - Related Data Allergies Allergy/AdvReac Type Severity Reaction Status Date / Time No Known Allergies Allergy Verified 12/13/19 14:17 Home Meds: Home Meds Clopidogrel [Plavix] 75 mg PO DAILY 09/08/17 [History] DULoxetine [Cymbalta] 60 mg PO DAILY 09/08/17 [History] Gabapentin [Neurontin] 200 mg PO TID 09/08/17 [History] Pantoprazole [ProTONIX] 40 mg PO DAILY 09/08/17 [History] Rosuvastatin [Crestor] 40 mg PO BEDTIME 09/08/17 [History] allopurinoL [Zyloprim] 100 mg PO DAILY 09/08/17 [History] Celecoxib [CeleBREX] 200 mg PO BEDTIME 07/21/19 [History] Insulin Degludec [Tresiba] 100 units SQ BEDTIME 07/21/19 [History] Insulin Lispro [HumaLOG] 0 units SQ ASDIRECTED 07/21/19 [History] Insulin Lispro [HumaLOG] 0 units SQ DAILY 07/21/19 [History] Insulin Lispro [Humalog] 20 units SQ DAILY 07/21/19 [History] Metoprolol Tartrate [Lopressor] 50 mg PO DAILY 07/21/19 [History] Amlodipine Besylate/Valsartan [Amlodipine-Valsartan 10-320 mg] 1 tab PO DAILY [History] Estrogens, Conjugated [Premarin Vaginal Crm] 1 applic VAG MOTH 11/28/19 [History ] Linaclotide [Linzess] 290 mcg PO DAILY 11/28/19 [History] Pramipexole [Mirapex] 0.125 mg PO TID 11/28/19 [History] Furosemide [Lasix] 20 mg PO DAILY 12/13/19 [History] fentaNYL [Duragesic] 1 patch TD Q72H #4 patch 12/13/19 [Rx] Past Medical History HEENT History: Reports: Impaired Vision Cardiovascular History: Reports: High Cholesterol, Hypertension Gastrointestinal History: Reports: Cholelithiasis, GERD Genitourinary History: Reports: UTI, Recurrent 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: Neurological History: Reports: Neuropathy, Peripheral Psychiatric History: Reports: Anxiety Endocrine/Metabolic History: Reports: Diabetes, Type II Oncologic (Cancer) History: Reports: Breast - Infectious Disease History Infectious Disease History: Reports: Chicken Pox, Measles, Mumps - Past Surgical History HEENT Surgical History: Reports: Cataract Surgery, Tonsillectomy Cardiovascular Surgical History: Reports: Coronary Artery Bypass GI Surgical History: Reports: Appendectomy, Cholecystectomy Other GI Surgeries/Procedures: gastric banding Other Female Surgeries/Procedures: lumpectomy of the right breast for CA Other Musculoskeletal Surgeries/Procedures:: carpal tunnel isaias wrists Dermatological Surgical History: Reports: Other (See Below) Social & Family History - Family History Family Medical History: Noncontributory - Caffeine Use Caffeine Use: Reports: Coffee, Soda - Living Situation & Occupation Living situation: Reports: Assisted Living ED [facility] - Review of Systems Review Of Systems: See Below Constitutional: Reports: Malaise, Weakness, Fatigue, Weight Gain. Denies: Fever , Chills HEENT: Reports: Glasses Respiratory: Reports: Shortness of Breath. Denies: Wheezing, Pleuritic Chest Pain, Cough, Sputum, Hemoptysis Cardiovascular: Reports: Blood Pressure Problem, Dyspnea on Exertion, Lightheadedness. Denies: Chest Pain, Claudication, Edema, Orthopnea ( Hypertension), Palpitations Endocrine: Reports: Fatigue GI/Abdominal: Reports: Constipation (Proved with Linzess.), Nausea (Occasional nausea with no vomiting). Denies: Flatus, Hematemesis, Hematochezia, Melena, Mucous in Stool, Stool Incontinence, Vomiting, Other : Reports: Frequency, Incontinence (Often has accidents because of urgency incontinence.), Urgency Musculoskeletal: Reports: Back Pain ( And stress incontinence), Joint Pain ( His hips low back neck and shoulders.) Skin: Reports: Bruising (Is fairly easy as she is on Plavix and aspirin) Neurological: Reports: Headache, Difficulty Walking (Of your peripheral neuropathy both lower extremities.), Weakness, Other. Denies: Dizziness, Numbness, Paresthesia, Pre-Existing Deficit, Seizure, Syncope (As daily.), Tingling, Tremors Psychiatric: Reports: No Symptoms Hematologic/Lymphatic: Reports: No Symptoms Immunologic: Reports: No Symptoms ED EXAM, GENERAL - Physical Exam Exam: See Below Exam Limited By: No Limitations General Appearance: Alert, WD/WN, Mild Distress, Other (Temperature is 35.8 which is likely inaccurate. Heart rate was 68 respiratory is 20 with O2 sats of 92% on room air. BP 1 5859.) Eye Exam: Bilateral Eye: Normal Inspection (No blepharal pallor or scleral icterus.), PERRL Throat/Mouth: Normal Lips, Other (Tongue is mildly dry and coated.). No: Normal Inspection, Normal Oropharynx Head: Atraumatic, Normocephalic Neck: Normal Inspection, Supple, Non-Tender, Limited Range of Motion, Thyromegaly (He does have multiple small nodules particularly on the right superior lobe of her thyroid.). No: Full Range of Motion, Carotid Bruit, Lymphadenopathy (L), Lymphadenopathy (R) (Crepitus on lateral rotation.) Respiratory/Chest: Lungs Clear, Normal Breath Sounds (Mild tachypnea.), No Accessory Muscle Use, Respiratory Distress, Decreased Breath Sounds (Rest sounds are diminished to the posterior lung biggs due to her size.) Cardiovascular: Regular Rate, Rhythm, No Edema, No Gallop, No Murmur, No Rub. No: Normal Peripheral Pulses Peripheral Pulses: 1+: Posterior Tibial (L), Posterior Tibial (R), Dorsalis Pedis (L), Dorsalis Pedis (R) GI/Abdominal: Normal Bowel Sounds, Soft, Non-Tender, No Organomegaly, No Mass, Other (Palpation for organomegaly is limited by abdominal girth. She has had previous lap band surgery and the port is still palpable in the left upper quadrant of the abdomen just below the costal margin.) Back Exam: Normal Inspection. No: CVA Tenderness (L), CVA Tenderness (R) Extremities: Normal Inspection, No Pedal Edema, Other (There is) Psychiatric: Normal Affect ( there is mild tenderness on palpation in particular the anterior tibias bilaterally.), Normal Mood Skin Exam: Warm, Dry, Intact, Normal Color, No Rash EKG INTERPRETATION EKG Date: 12/13/19 Time: 15:09 Rhythm: NSR Rate (Beats/Min): 68 [place]: Normal QRS: Other (They show poor R wave progression. There is a nonspecific interventricular conduction delay. R waves in lead I suggest left ventricular perjury pattern.) QT: Prolonged (Qtc is mildly prolonged.) EKG Interpretation Comments: Abnormal ECG Course - Vital Signs Last Recorded V/S: Last Vital Signs Temp 35.8 C L 12/13/19 14:13 Pulse 68 12/13/19 14:13 Resp 20 12/13/19 14:13 BP 158/59 H 12/13/19 14:13 Pulse Ox 92 L 12/13/19 14:13 - Orders/Labs/Meds Orders: Active Orders 24 hr Category Date Time Status EKG Documentation Completion [RC] STAT Care 12/13/19 14:45 Active FREE T3 [REF] Stat Lab 12/13/19 14:53 Received PTH, INTACT [REF] Stat Lab 12/13/19 16:40 Received Sodium Chloride 0.9% [Normal Saline] 1,000 ml Med 12/13/19 14:45 Active IV ASDIRECTED Medication Orders Sodium Chloride (Normal Saline) 1,000 mls @ 100 mls/hr IV ASDIRECTED JAMES Last Admin: 12/13/19 15:04 Dose: 100 mls/hr Labs: Laboratory Tests 12/13/19 12/13/19 12/13/19 Range/Units 14:53 14:53 14:53 WBC 9.59 (3.98-10.04) K/mm3 RBC 4.75 (3.98-5.22) M/mm3 Hgb 12.6 (11.2-15.7) gm/dl Hct 39.2 (34.1-44.9) % MCV 82.5 D (79.4-94.8) fl MCH 26.5 (25.6-32.2) pg MCHC 32.1 L (32.2-35.5) g/dl RDW Std Deviation 49.4 H (36.4-46.3) fL Plt Count 241 (182-369) K/mm3 MPV 9.3 L (9.4-12.3) fl Neutrophils % (Manual) 73 H (40-60) % Band Neutrophils % 0 (0-10) % Lymphocytes % (Manual) 15 L (20-40) % Atypical Lymphs % 0 % Monocytes % (Manual) 10 (2-10) % Eosinophils % (Manual) 2 (0.7-5.8) % Basophils % (Manual) 0 L (0.1-1.2) Platelet Estimate Not Reportable RBC Morph Comment Not Reportable ESR (0-20) mm/hr PT 11.4 (9.7-12.0) SECONDS INR 1.05 APTT 27 (22-31) SECONDS Sodium 138 (136-145) mEq/L Potassium 3.8 (3.5-5.1) mEq/L Chloride 97 L (98-107) mEq/L Carbon Dioxide 33 H (21-32) mEq/L Anion Gap 11.8 (5-15) BUN 40 H (7-18) mg/dL Creatinine 1.4 H (0.55-1.02) mg/dL Est Cr Clr Drug Dosing 41.59 mL/min Estimated GFR (MDRD) 37 (>60) mL/min BUN/Creatinine Ratio 28.6 H (14-18) Glucose 292 H (80-115) mg/dL Hemoglobin A1c (4.50-6.20) % Calcium 12.9 H (8.5-10.1) mg/dL Magnesium 1.7 L (1.8-2.4) mg/dl Total Bilirubin 1.2 H (0.2-1.0) mg/dL AST 43 H (15-37) U/L ALT 11 L (14-59) U/L Alkaline Phosphatase 188 H (46-116) U/L Lactate Dehydrogenase 672 H (81-234) U/L Creatine Kinase 53 (26-192) U/L CK-MB (CK-2) 0.7 (0-3.6) ng/ml NT-Pro-B Natriuret Pep (0-125) pg/mL Total Protein 7.8 (6.4-8.2) g/dl Albumin 3.2 L (3.4-5.0) g/dl Globulin 4.6 gm/dL Albumin/Globulin Ratio 0.7 L (1-2) Free T4 1.14 (0.76-1.46) ng/dL TSH 3rd Generation 3.206 (0.358-3.74) uIU/mL 12/13/19 12/13/19 12/13/19 Range/Units 14:53 14:53 14:53 WBC (3.98-10.04) K/mm3 RBC (3.98-5.22) M/mm3 Hgb (11.2-15.7) gm/dl Hct (34.1-44.9) % MCV (79.4-94.8) fl MCH (25.6-32.2) pg MCHC (32.2-35.5) g/dl RDW Std Deviation (36.4-46.3) fL Plt Count (182-369) K/mm3 MPV (9.4-12.3) fl Neutrophils % (Manual) (40-60) % Band Neutrophils % (0-10) % Lymphocytes % (Manual) (20-40) % Atypical Lymphs % % Monocytes % (Manual) (2-10) % Eosinophils % (Manual) (0.7-5.8) % Basophils % (Manual) (0.1-1.2) Platelet Estimate RBC Morph Comment ESR 10 (0-20) mm/hr PT (9.7-12.0) SECONDS INR APTT (22-31) SECONDS Sodium (136-145) mEq/L Potassium (3.5-5.1) mEq/L Chloride (98-107) mEq/L Carbon Dioxide (21-32) mEq/L Anion Gap (5-15) BUN (7-18) mg/dL Creatinine (0.55-1.02) mg/dL Est Cr Clr Drug Dosing mL/min Estimated GFR (MDRD) (>60) mL/min BUN/Creatinine Ratio (14-18) Glucose (80-115) mg/dL Hemoglobin A1c 8.80 H (4.50-6.20) % Calcium (8.5-10.1) mg/dL Magnesium (1.8-2.4) mg/dl Total Bilirubin (0.2-1.0) mg/dL AST (15-37) U/L ALT (14-59) U/L Alkaline Phosphatase (46-116) U/L Lactate Dehydrogenase (81-234) U/L Creatine Kinase (26-192) U/L CK-MB (CK-2) (0-3.6) ng/ml NT-Pro-B Natriuret Pep 271 H (0-125) pg/mL Total Protein (6.4-8.2) g/dl Albumin (3.4-5.0) g/dl Globulin gm/dL Albumin/Globulin Ratio (1-2) Free T4 (0.76-1.46) ng/dL TSH 3rd Generation (0.358-3.74) uIU/mL Meds: Medications Generic Name Dose Route Start Last Admin Trade Name Freq PRN Reason Stop Dose Admin Sodium Chloride 1,000 mls @ 100 mls/hr 12/13/19 14:45 12/13/19 15:04 Normal Saline IV 100 mls/hr ASDIRECTED JAMES Administration Discontinued Medications Generic Name Dose Route Start Last Admin Trade Name Freq PRN Reason Stop Dose Admin Hydromorphone HCl 0.5 mg 12/13/19 14:44 12/13/19 15:02 Dilaudid IVPUSH 12/13/19 14:45 0.5 mg ONETIME ONE Administration Hydromorphone HCl 0.5 mg 12/13/19 16:44 12/13/19 16:55 Dilaudid IVPUSH 12/13/19 16:45 0.5 mg ONETIME ONE Administration Metoclopramide HCl 10 mg 12/13/19 14:44 12/13/19 15:00 Reglan IVPUSH 12/13/19 14:45 10 mg ONETIME ONE Administration - Radiology Interpretation Free Text/Narrative:: 69-year-old female presents to the ED due to gradually worsening weakness and lower extremity pain over the last 2-1/2 months that is reached the point that she is no longer hardly able to walk or get around her own home even with the aid of a walker. She uses a wheelchair most of the time. She was brought to the hospital today by [facility]. Her son is present in the room and able to fill in some of the blanks in her history. She has had x-rays of both lower extremities apparently performed with no positive findings. She has a remote history of right breast cancer 20 years ago. She is an insulin-dependent diabetic with significant peripheral neuropathy and restless leg syndrome in her lower extremities. Chief complaint is severe bone pain in her lower extremities. Plan multiple investigations by labs and x-ray will be obtained. An IV will not be started at normal saline 100 mils per hour. She will be given Dilaudid 0.5 mg IV and Reglan 10 mg IV for pain relief. - Re-Assessments/Exams Free Text/Narrative Re-Assessment/Exam: 12/13/19 15:39 chest x-ray done portably reveals mild cardiomegaly. Lungs are clear with no acute parenchymal changes. Surgical clips are seen within both axillary regions. 12/13/19 16:44 and is having more pain in her left leg and is requesting analgesia. Will repeat Dilaudid 0.5 mg IV. 12/13/19 16:48 Labs revealed a normal white count at 9.59. Differential shows 73% neutrophils and no bands. Hemoglobin is 12.6 with hematocrit of 39.2. Platelet counts 241,000. Sed rate is 10. PT is 11.4 with a INR of 1.05 PTT is 27. Sodium is 138 with a potassium of 3.8. Chloride is 97 with a bicarb of 33 suggesting CO2 retention. Anion gap is 11.8. BUN is 40 with a creatinine of 1.4. GFR is 37 indicating stage III chronic kidney disease. BUN/creatinine ratio is elevated at 28.6. Glucose elevated at 292 but the patient is a type II diabetic using insulin for control. Hemoglobin A1c is 8.80 indicating poor control of her diabetes. Calcium is 12.9. A ionized calcium was ordered. Magnesium slightly low at 1.7. Bilirubin 1.2 AST 43 with an ALT of 11. Alk phos stays also slightly elevated at 188. LDH is elevated at 672 normal being up to 234. Creatine kinase is 53. CK-MB fraction is 0.7. BNP is 271. Total protein 7.8 albumin fraction is 3.2. Free T4 is 1.14 TSH is normal at 3.206. Parathyroid hormone assay was ordered and is a send out. 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 bone pain for the last month or longer. Gradually getting worse. This is increased your problems with mobility and getting around in your home even with the aid of a walker. Lab test revealed that there is evidence of elevated calcium in your bloodstream. The reason for this is not yet clarified. It can sometimes be due to overactive parathyroid glands which are behind the thyroid gland in your neck. Parathyroid hormone assay has been sent out for hormone evaluation and should be available in 2 to 3 days time. The results will be sent to Dr. Lima. Other markers for inflammation of the bone are evident in your bloodstream.. Concern would be for possible metastatic cancer of the breast since she had breast cancer 20 years ago as a potential cause of elevated calcium in your bloodstream as well. Therefore I will have the x-ray department call you tomorrow to arrange for a triple phase bone scan to look for any potential cancers in the bones. The results of this test will also be sent to Dr. Lima. Suggest you making a follow-up appointment to see him after all tests have been completed. In the meantime suggested trial of fentanyl patch 12 mcg/h. One patch will last 72 hours to relieve severe pain in your lower extremities. I have provided enough medication for the next 2 weeks. By then we should have an answer as to the cause of your elevated blood calcium levels. Sepsis Event Note - Evaluation Sepsis Screening Result: No Definite Risk - Focused Exam Vital Signs: Vital Signs Temp Pulse Resp BP Pulse Ox 12/13/19 14:13 35.8 C L 68 20 158/59 H 92 L Date Exam was Performed: 12/13/19 Time Exam was Performed: 17:34 - My Orders Last 24 Hours: My Active Orders 12/13/19 14:45 EKG Documentation Completion [RC] STAT Sodium Chloride 0.9% [Normal Saline] 1,000 ml IV ASDIRECTED 12/13/19 14:53 FREE T3 [REF] Stat 12/13/19 16:40 PTH, INTACT [REF] Stat - Assessment/Plan Last 24 Hours: My Active Orders 12/13/19 14:45 EKG Documentation Completion [RC] STAT Sodium Chloride 0.9% [Normal Saline] 1,000 ml IV ASDIRECTED 12/13/19 14:53 FREE T3 [REF] Stat 12/13/19 16:40 PTH, INTACT [REF] Stat
[2019-12-13] MEDS ORDERED: Metoclopramide 10 MG/2 ML SDV IVPUSH ONE (14:44)
[2019-12-13] MEDS ORDERED: HYDROmorphone 0.5 MG/0.5 ML Syringe IVPUSH ONE ×2 (14:44→16:44)
[2019-12-13] MEDS ORDERED: Sodium Chloride 0.9% 1,000 ML IV SCH (14:45)
--- NOTE | 2019-12-13 15:11 | CR ---
Chest: Portable view of the chest was obtained. Comparison: Prior chest x-ray of . Heart is enlarged. Previous sternotomy is seen. Lungs are clear with no acute parenchymal change. Surgical clips are seen within both axillary regions. Impression: 1. Mild cardiomegaly. 2. Other findings as noted above. 3. Nothing acute is seen. Diagnostic code #2 This report was dictated in MDT
[2019-12-13 15:41] LABS: HEMOGLOBIN A1C 8.8 % (4.50-6.20)
[2019-12-13 18:57] VITALS: BP 158/65; PULSE 72
== END 2019-12-13 18:30 | disposition home or self-care (01) ==
LOC: JD.ED 14:05
DX: E11.42 Type 2 diabetes mellitus with diabetic polyneuropathy (principal); E11.65 Type 2 diabetes mellitus with hyperglycemia; E83.52 Hypercalcemia; I10 Essential (primary) hypertension; E78.00 Pure hypercholesterolemia, unspecified; K21.9 Gastro-esophageal reflux disease without esophagitis; F41.9 Anxiety disorder, unspecified; Z79.4 Long term (current) use of insulin; Z79.02 Long term (current) use of antithrombotics/antiplatelets; Z79.899 Other long term (current) drug therapy
CPT/HCPCS: 36415; 71045; 80053; 82550; 82553; 83036; 83615; 83735; 83880; 83970; 84439; 84443; 84481; 85007; 85027; 85610; 85652; 85730; 93005; 96361; 96374; 96375; 96376; 99285; J1170; J2765; J7030; 93010; 99283

== ENCOUNTER 2019-12-15 12:38 | Inpatient (IN) | payer MEDICARE, OTHER ==
--- NOTE | 2019-12-15 12:58 | EDM.PDOC ---
ED HPI GENERAL MEDICAL PROBLEM - General Chief Complaint: General Stated Complaint: [facility] Time Seen by Provider: 12/15/19 12:52 Source of Information: Reports: Patient, EMS History Limitations: Reports: Altered Mental Status, Other (appears sedated. ) - History of Present Illness INITIAL COMMENTS - FREE TEXT/NARRATIVE: 69-year-old female whom I seen 48 hours ago due to severe generalized pain syndrome particular in her lower extremities. The pain in her bones was so severe that she had limited her walking ability at home with her walker and it it had reduced ability to a wheelchair. Symptoms have been going on for about 3 to 4 weeks now. Gradual deterioration and increased pain in her lower extremities which is interfering with her ability to sleep etc. She has a history of breast cancer right side with radical lymph node dissection and lumpectomy carried out 20 years ago. Full laboratory testing done here suggested that she did have hypercalcemia with a calcium of 12.7 with elevated LDH and alk phosphatase is worrisome for metastatic bone disease. Due to the nature of the pain I opted to place her on fentanyl patch 12 mcg/h which she started on the evening of December 12. It appears that since that time she has become slightly delirious according to the family members but sleeping large portions of the day away and not getting adequate nutrition or oral fluid intake. On my examination and initially she was quite sedated and sleepy but opens her eyes and answer questions for less than 30 seconds before she almost fell back asleep. She appears to be over sedated likely from the fentanyl patch. The fentanyl patch will be removed at this time. I had ordered a triple phase bone scan but it is unclear when this was to be performed. Also was sent out a parathyroid hormone assay which should likely be be back today or tomorrow. Onset: Gradual Onset Date: 12/14/19 (Gradually increase sedation since yesterday basically since placement of the fentanyl patch) Duration: Hour(s):, Getting Worse Location: Reports: Generalized (Increase sedation with reported some delirium or confusion as to what time of the day it is and where she is.) Quality: Reports: Other (Increased sedation with reported delirium and confusion ) Severity: Moderate Improves with: Reports: None Worsens with: Reports: None Context: Reports: Other (Likely due to recent addition of 12 mcg fentanyl patch for severe bone pain both lower extremities. She was essentially opioid na�ve before using the small dose of fentanyl and she is a good size.). Denies: Activity, Exercise, Lifting, Sick Contact, Trauma Associated Symptoms: Reports: Confusion, Loss of Appetite, Malaise, Other ( Sense of sedation and sleepiness.). Denies: Chest Pain, Cough, cough w sputum, Nausea/Vomiting Treatments HOSIERY MATER: Reports: Other (see below) (None.) - Related Data Allergies Allergy/AdvReac Type Severity Reaction Status Date / Time No Known Allergies Allergy Verified 12/15/19 12:46 Home Meds: Home Meds Clopidogrel [Plavix] 75 mg PO DAILY 09/08/17 [History] DULoxetine [Cymbalta] 60 mg PO DAILY 09/08/17 [History] Gabapentin [Neurontin] 200 mg PO TID 09/08/17 [History] Pantoprazole [ProTONIX] 40 mg PO DAILY 09/08/17 [History] Rosuvastatin [Crestor] 40 mg PO BEDTIME 09/08/17 [History] allopurinoL [Zyloprim] 100 mg PO DAILY 09/08/17 [History] Celecoxib [CeleBREX] 200 mg PO BEDTIME 07/21/19 [History] Insulin Degludec [Tresiba] 100 units SQ BEDTIME 07/21/19 [History] Insulin Lispro [HumaLOG] 15 units SQ ACBREAKFAST 07/21/19 [History] Insulin Lispro [HumaLOG] 15 units SQ ACLUNCH 07/21/19 [History] Insulin Lispro [Humalog] 20 units SQ ACDINNER 07/21/19 [History] Metoprolol Tartrate [Lopressor] 50 mg PO DAILY 07/21/19 [History] Estrogens, Conjugated [Premarin Vaginal Crm] 1 applic VAG MOTH 11/28/19 [History ] Linaclotide [Linzess] 290 mcg PO DAILY 11/28/19 [History] Pramipexole [Mirapex] 0.125 mg PO TID 11/28/19 [History] Furosemide [Lasix] 20 mg PO DAILY 12/13/19 [History] fentaNYL [Duragesic] 1 patch TD Q72H #4 patch 12/13/19 [Rx] Amlodipine/Valsartan/Hcthiazid [Whooo-Kqraw-Yvyg 10-320-25 mg] 1 tab PO DAILY [History] Insulin Lispro [Humalog] 0 unit SQ BEDTIME PRN 12/15/19 [History] Past Medical History HEENT History: Reports: Impaired Vision Cardiovascular History: Reports: High Cholesterol, Hypertension Gastrointestinal History: Reports: Cholelithiasis, GERD Genitourinary History: Reports: UTI, Recurrent [employer] History: Reports: Neurological History: Reports: Neuropathy, Peripheral Psychiatric History: Reports: Anxiety Endocrine/Metabolic History: Reports: Diabetes, Type II Oncologic (Cancer) History: Reports: Breast - Infectious Disease History Infectious Disease History: Reports: Chicken Pox, Measles, Mumps - Past Surgical History HEENT Surgical History: Reports: Cataract Surgery, Tonsillectomy Cardiovascular Surgical History: Reports: Coronary Artery Bypass GI Surgical History: Reports: Appendectomy, Cholecystectomy Other GI Surgeries/Procedures: gastric banding Other Female Surgeries/Procedures: lumpectomy of the right breast for CA Other Musculoskeletal Surgeries/Procedures:: carpal tunnel isaias wrists Dermatological Surgical History: Reports: Other (See Below) Social & Family History - Family History Family Medical History: Noncontributory - Caffeine Use Caffeine Use: Reports: Coffee, Soda - Living Situation & Occupation Living situation: Reports: Assisted Living ED [facility] - Review of Systems Review Of Systems: See Below Constitutional: Reports: Malaise, Weakness, Fatigue, Decreased Appetite, Other ( Increased sedation.). Denies: Fever, Chills HEENT: Reports: Glasses Respiratory: Reports: Shortness of Breath. Denies: Wheezing, Pleuritic Chest Pain, Cough, Sputum Cardiovascular: Reports: Blood Pressure Problem, Dyspnea on Exertion, Edema, Lightheadedness. Denies: Chest Pain, Claudication, Orthopnea Endocrine: Reports: Fatigue (Likely) GI/Abdominal: Reports: Decreased Appetite (Is been eating or drinking as well as normal because she is been sleeping.) : Reports: Frequency, Incontinence (Stress and urge components.) Musculoskeletal: Reports: Back Pain, Joint Pain (Neck low back pain), Other ( knee pain and limited mobility of both hips. Lanes of severe constant aching in both lower extremities bone pain for the last 3 to 4 weeks. Urine is for possible metastatic bone disease secondary to primary cancer right breast 20 years ago. She had mildly elevated serum calcium level at 12.7. She had elevated LDH and alk phosphatase concerning for possible metastatic bone disease. A triple phase bone scan has been ordered as an outpatient but has not yet been done) Skin: Reports: Bruising (Is on Plavix and bruises easily.) Neurological: Reports: Confusion (Confused and disoriented and somewhat delirious since last night. This is felt to be an adverse effect to the fentanyl patch that was placed on the evening of December 12 for pain relief.), Dizziness, Difficulty Walking (She gets around with a walker at all times but has not been resorting to the wheelchair for the last 2 weeks. Painful to walk) Psychiatric: Reports: No Symptoms Hematologic/Lymphatic: Reports: No Symptoms, Easy Bruising Immunologic: Reports: No Symptoms ED EXAM, GENERAL - Physical Exam Exam: See Below Exam Limited By: Altered Mental Status (Patient appears overly sedated. She will greet me open her eyes but as I am talking to her within 30 seconds she drifts off back to sleep.) General Appearance: No Apparent Distress, Lethargic Eye Exam: Bilateral Eye: Normal Inspection, PERRL (Pupils are 3 mm and do not react to light.) Throat/Mouth: Normal Inspection, Normal Lips, Normal Oropharynx, Other Head: Atraumatic, Normocephalic (Is dry and coated) Neck: Normal Inspection, Supple, Limited Range of Motion, Tender Lateral ( Tender lateral aspect the neck bilaterally due to underlying arthritic change.) . No: Lymphadenopathy (L), Lymphadenopathy (R) Respiratory/Chest: Respiratory Distress (No tachypnea at rest.), Decreased Breath Sounds (Creased breath sounds at the lower 25% lung biggs bilaterally. Shallow respirations) Cardiovascular: Regular Rate, Rhythm, No JVD, Gallop/S3, Gallop/S4, Other ( Clear if she has a mild systolic ejection murmur at the left lower sternal border.). No: Normal Peripheral Pulses Peripheral Pulses: 1+: Posterior Tibial (L) (Actually obscured by lymphedema), Posterior Tibial (R), Dorsalis Pedis (L), Dorsalis Pedis (R), 2+: Carotid (L), Carotid (R) GI/Abdominal: Normal Bowel Sounds, Soft, Non-Tender, No Organomegaly, No Abnormal Bruit, No Mass, Pelvis Stable, Other (Obese abdominal girth limits ability to palpate solid organs) Extremities: Pedal Edema (Edema lower extremities mostly around the ankles and dorsal feet) Neurological: Alert, Oriented, Normal Cognition, No Motor/Sensory Deficits, Slow to Respond. No: Normal Reflexes (He knew who I was greeted me appropriately and could carry on a conversation for short period of time before falling asleep. She is areflexic) Psychiatric: Normal Affect Skin Exam: Warm, Dry, Intact, Normal Color, No Rash EKG INTERPRETATION EKG Date: 12/15/19 Time: 15:00 Rhythm: NSR Rate (Beats/Min): 80 [place]: Normal P-Wave: Present QRS: Other (SR prime wave V1. Likely normal variant. V2 lead is incomplete and cannot be analyzedm There is a nonspecific intraventricular conduction delay pattern. Poor R wave progression. Left ventricular appear to be pattern. ) ST-T: Other (Nonspecific T wave flattening in lead III and inverted in aVF.) QT: Normal EKG Interpretation Comments: Abnormal ECG Course - Vital Signs Last Recorded V/S: Last Vital Signs Temp 36.9 C 12/15/19 14:10 Pulse 79 12/15/19 14:10 Resp 12 12/15/19 14:10 BP 149/63 H 12/15/19 14:10 Pulse Ox 95 12/15/19 14:10 - Orders/Labs/Meds Orders: Active Orders 24 hr Category Date Time Status Blood Glucose Check, Bedside [RC] ONETIME Care 12/15/19 13:01 Active Insert Urinary Catheter [OM.PC] Q24H Care 12/15/19 14:45 Ordered Urinary Catheter Assessment [RC] ASDIRECTED Care 12/15/19 14:41 Active Chest 1V Frontal [CR] Stat Exams 12/15/19 15:02 Taken CULTURE BLOOD [BC] Stat Lab 12/15/19 15:20 Received CULTURE BLOOD [BC] Stat Lab 12/15/19 15:30 Received Sodium Chloride 0.9% [Normal Saline] 1,000 ml Med 12/15/19 13:00 Active IV ASDIRECTED Blood Culture x2 Reflex Set [OM.PC] Stat Oth 12/15/19 15:01 Ordered Medication Orders Sodium Chloride (Normal Saline) 1,000 mls @ 150 mls/hr IV ASDIRECTED JAMES Last Admin: 12/15/19 13:10 Dose: 150 mls/hr Labs: Laboratory Tests 12/15/19 12/15/19 12/15/19 Range/Units 13:20 13:20 13:20 WBC 8.43 (3.98-10.04) K/mm3 RBC 3.79 L (3.98-5.22) M/mm3 Hgb 12.3 (11.2-15.7) gm/dl Hct 32.2 L (34.1-44.9) % MCV 85.0 (79.4-94.8) fl MCH 32.5 H (25.6-32.2) pg MCHC 38.2 H (32.2-35.5) g/dl RDW Std Deviation 50.8 H (36.4-46.3) fL Plt Count 197 (182-369) K/mm3 MPV 9.2 L (9.4-12.3) fl Neut % (Auto) 76.2 H (34.0-71.1) % Lymph % (Auto) 11.3 L (19.3-51.7) % [place] % (Auto) 11.9 (4.7-12.5) % Eos % (Auto) 0.1 L (0.7-5.8) Baso % (Auto) 0.1 (0.1-1.2) % Neut # (Auto) 6.43 H (1.56-6.13) K/mm3 Lymph # (Auto) 0.95 L (1.18-3.74) K/mm3 [place] # (Auto) 1.00 H (0.24-0.36) K/mm3 Eos # (Auto) 0.01 L (0.04-0.36) K/mm3 Baso # (Auto) 0.01 (0.01-0.08) K/mm3 Manual Slide Review Abnormal smear Sodium 140 (136-145) mEq/L Potassium 3.2 L (3.5-5.1) mEq/L Chloride 97 L (98-107) mEq/L Carbon Dioxide 35 H (21-32) mEq/L Anion Gap 11.2 (5-15) BUN 49 H (7-18) mg/dL Creatinine 1.4 H (0.55-1.02) mg/dL Est Cr Clr Drug Dosing TNP Estimated GFR (MDRD) 37 (>60) mL/min BUN/Creatinine Ratio 35.0 H (14-18) Glucose 130 H (80-115) mg/dL Lactic Acid (0.4-2.0) mmol/L Calcium 13.4 H* (8.5-10.1) mg/dL Magnesium 1.8 (1.8-2.4) mg/dl Total Bilirubin 1.5 H (0.2-1.0) mg/dL GGT (5-55) U/L AST 92 H (15-37) U/L ALT 17 (14-59) U/L Alkaline Phosphatase 256 H (46-116) U/L Troponin I (0.00-0.056) ng/mL C-Reactive Protein 25.8 H* (<1.0) mg/dL NT-Pro-B Natriuret Pep 507 H (0-125) pg/mL Total Protein 7.3 (6.4-8.2) g/dl Albumin 2.9 L (3.4-5.0) g/dl Globulin 4.4 gm/dL Albumin/Globulin Ratio 0.7 L (1-2) Urine Color (Yellow) Urine Appearance (Clear) Urine pH (5.0-8.0) Ur Specific [place] (1.005-1.030) Urine Protein (Negative) Urine Glucose (UA) (Negative) Urine Ketones (Negative) Urine Occult Blood (Negative) Urine Nitrite (Negative) Urine Bilirubin (Negative) Urine Urobilinogen (0.2-1.0) Ur Leukocyte Esterase (Negative) Urine RBC (0-5) /hpf Urine WBC (0-5) /hpf Ur Epithelial Cells (0-5) /hpf Urine Bacteria (FEW) /hpf Urine Mucus (FEW) /hpf 12/15/19 12/15/19 12/15/19 Range/Units 14:37 15:20 15:30 WBC (3.98-10.04) K/mm3 RBC (3.98-5.22) M/mm3 Hgb (11.2-15.7) gm/dl Hct (34.1-44.9) % MCV (79.4-94.8) fl MCH (25.6-32.2) pg MCHC (32.2-35.5) g/dl RDW Std Deviation (36.4-46.3) fL Plt Count (182-369) K/mm3 MPV (9.4-12.3) fl Neut % (Auto) (34.0-71.1) % Lymph % (Auto) (19.3-51.7) % [place] % (Auto) (4.7-12.5) % Eos % (Auto) (0.7-5.8) Baso % (Auto) (0.1-1.2) % Neut # (Auto) (1.56-6.13) K/mm3 Lymph # (Auto) (1.18-3.74) K/mm3 [place] # (Auto) (0.24-0.36) K/mm3 Eos # (Auto) (0.04-0.36) K/mm3 Baso # (Auto) (0.01-0.08) K/mm3 Manual Slide Review Sodium (136-145) mEq/L Potassium (3.5-5.1) mEq/L Chloride (98-107) mEq/L Carbon Dioxide (21-32) mEq/L Anion Gap (5-15) BUN (7-18) mg/dL Creatinine (0.55-1.02) mg/dL Est Cr Clr Drug Dosing Estimated GFR (MDRD) (>60) mL/min BUN/Creatinine Ratio (14-18) Glucose (80-115) mg/dL Lactic Acid (0.4-2.0) mmol/L Calcium (8.5-10.1) mg/dL Magnesium (1.8-2.4) mg/dl Total Bilirubin (0.2-1.0) mg/dL GGT 14 (5-55) U/L AST (15-37) U/L ALT (14-59) U/L Alkaline Phosphatase (46-116) U/L Troponin I < 0.017 (0.00-0.056) ng/mL C-Reactive Protein (<1.0) mg/dL NT-Pro-B Natriuret Pep (0-125) pg/mL Total Protein (6.4-8.2) g/dl Albumin (3.4-5.0) g/dl Globulin gm/dL Albumin/Globulin Ratio (1-2) Urine Color Dark yellow (Yellow) Urine Appearance Clear (Clear) Urine pH 5.5 (5.0-8.0) Ur Specific [place] > or = 1.030 (1.005-1.030) Urine Protein 1+ H (Negative) Urine Glucose (UA) Negative (Negative) Urine Ketones Negative (Negative) Urine Occult Blood 1+ H (Negative) Urine Nitrite Negative (Negative) Urine Bilirubin Negative (Negative) Urine Urobilinogen 1.0 (0.2-1.0) Ur Leukocyte Esterase Negative (Negative) Urine RBC 10-20 H (0-5) /hpf Urine WBC 10-20 H (0-5) /hpf Ur Epithelial Cells 10-20 H (0-5) /hpf Urine Bacteria Many H (FEW) /hpf Urine Mucus Many H (FEW) /hpf 12/15/19 Range/Units 15:30 WBC (3.98-10.04) K/mm3 RBC (3.98-5.22) M/mm3 Hgb (11.2-15.7) gm/dl Hct (34.1-44.9) % MCV (79.4-94.8) fl MCH (25.6-32.2) pg MCHC (32.2-35.5) g/dl RDW Std Deviation (36.4-46.3) fL Plt Count (182-369) K/mm3 MPV (9.4-12.3) fl Neut % (Auto) (34.0-71.1) % Lymph % (Auto) (19.3-51.7) % [place] % (Auto) (4.7-12.5) % Eos % (Auto) (0.7-5.8) Baso % (Auto) (0.1-1.2) % Neut # (Auto) (1.56-6.13) K/mm3 Lymph # (Auto) (1.18-3.74) K/mm3 [place] # (Auto) (0.24-0.36) K/mm3 Eos # (Auto) (0.04-0.36) K/mm3 Baso # (Auto) (0.01-0.08) K/mm3 Manual Slide Review Sodium (136-145) mEq/L Potassium (3.5-5.1) mEq/L Chloride (98-107) mEq/L Carbon Dioxide (21-32) mEq/L Anion Gap (5-15) BUN (7-18) mg/dL Creatinine (0.55-1.02) mg/dL Est Cr Clr Drug Dosing Estimated GFR (MDRD) (>60) mL/min BUN/Creatinine Ratio (14-18) Glucose (80-115) mg/dL Lactic Acid 1.4 (0.4-2.0) mmol/L Calcium (8.5-10.1) mg/dL Magnesium (1.8-2.4) mg/dl Total Bilirubin (0.2-1.0) mg/dL GGT (5-55) U/L AST (15-37) U/L ALT (14-59) U/L Alkaline Phosphatase (46-116) U/L Troponin I (0.00-0.056) ng/mL C-Reactive Protein (<1.0) mg/dL NT-Pro-B Natriuret Pep (0-125) pg/mL Total Protein (6.4-8.2) g/dl Albumin (3.4-5.0) g/dl Globulin gm/dL Albumin/Globulin Ratio (1-2) Urine Color (Yellow) Urine Appearance (Clear) Urine pH (5.0-8.0) Ur Specific [place] (1.005-1.030) Urine Protein (Negative) Urine Glucose (UA) (Negative) Urine Ketones (Negative) Urine Occult Blood (Negative) Urine Nitrite (Negative) Urine Bilirubin (Negative) Urine Urobilinogen (0.2-1.0) Ur Leukocyte Esterase (Negative) Urine RBC (0-5) /hpf Urine WBC (0-5) /hpf Ur Epithelial Cells (0-5) /hpf Urine Bacteria (FEW) /hpf Urine Mucus (FEW) /hpf Meds: Medications Generic Name Dose Route Start Last Admin Trade Name Freq PRN Reason Stop Dose Admin Sodium Chloride 1,000 mls @ 150 mls/hr 12/15/19 13:00 12/15/19 13:10 Normal Saline IV 150 mls/hr ASDIRECTED JAMES Administration - Radiology Interpretation Free Text/Narrative:: 69-year-old female returns to the ED after I had seen her less than 48 hours ago. Her chief complaint at the time she was seen 2 days ago was that of severe increasing pain in her lower extremities i.e. bone pain to the point that she was no longer able to walk with her walker in her home. She had resorted to using a wheelchair over the last 2 weeks. Pain started 3-1/2 weeks ago. The work-up revealed an elevated serum calcium level ionized calcium level was a send out. Parathyroid hormone assay was a send out. She also had elevated LDH and alk phosphatase concerning for possible metastatic bone disease. She was booked for a triple phase bone scan as an outpatient but this is yet to be done. Apparently last evening she became more set sedated and sleepy and apparently reported somewhat delirious today as she does not know what time of the day it is or where she is at times. Patient is hyper sedated secondary to the fentanyl patch that I gave her 12 mcg/h for pain relief. She indicates that the pain is markedly improved but has caused oversedation. This is no doubt the reason for her confusional state. She also has had very little oral intake of fluids and food because she is sleeping. Plan normal saline at 150 mils per hour. Fentanyl patch will be removed. He is in no dire distress at this point time and vital signs are stable. Is 80 in sinus sats are 99% on room air BP is 129/55. For not reverse the narcosis with Narcan. The labs will be done but not near as complete as what was done 2 days ago. Refer to the old chart for further information. She is an insulin-dependent diabetic and have asked for a blood glucose at the bedside. - Re-Assessments/Exams Free Text/Narrative Re-Assessment/Exam: 12/15/19 13:40 Hematology reveals a normal white count at 8.43. Differential shows 76.2% neutrophils on the auto differential. Hemoglobin is 12.3 with hematocrit of 32.2. Platelet counts 197,000. The slide reveals slight anisocytosis. She has looked all over for her fentanyl patch and it could not be identified. I had advised her to place on either side of her upper chest and her upper arms. Apparently was on her upper chest and she is only had one application. Family members report they to could not find it this morning. 12/15/19 15:00 Chemistry shows a sodium of 140 potassium slightly low at 3.2. Chloride is 97 with a bicarb of 35. Anion gap is 11.2. BUN is 49 with a creatinine of 1.4. GFR is 37 indicating stage III chronic kidney disease. Glucose is 130 with a calcium of 13.4 elevated from 12.72 days ago likely due to volume depletion. Magnesium is 1.8 with a bilirubin 1.5. AST is 92 with an ALT of 17 alk phos stays elevated at 256. Kavitha is elevated greater than it was 2 days ago. GGT will be ordered to make sure there is no mild biliary tree obstruction. C-reactive protein is elevated at 25.8. I do not have one to compare to as I did not do 1 2 days ago. BNP is 507. Total protein is 7.3 with an albumin fraction of 2.9. Urinalysis showed 1+ proteinuria 1+ occult blood glucose site esterase was negative. The micro is pending. To have blood cultures x2 obtained with the GGT as I want to make sure she does not have a occult infection causing her current symptom complex. 12/15/19 16:03 x-ray was done portably. There is a very poor inspirational film. And reveals cardiomegaly. She is slightly rotated to the right making the right hilar area slightly more prominent. Possible mild tortuosity of the thoracic aorta. The lungs appear clear. Nurses of double check temperature and she is 97.4 97.3. 12/15/19 16:12 GGT is normal and there is no for no sign of biliary tree obstruction. Does not rule out metastatic disease to the liver but makes it less likely. Her BNP has doubled since last seen. However her BUN is elevated suggesting that she is indeed mildly volume depleted. Going to order a serum troponin to make sure she has not suffered an occult myocardial infarction although this is not evident on ECG. Case will be discussed with on-call hospitalist Dr. Varma and he will see her in the ED with a view to admission to the med surgery floor. Unclear at this point time when she is booked for her triple phase bone scan. I discussed with radiology department when her scan was booked and they have no record of her ever and received a requisition for this. They believe they will be able to do it tomorrow however Dr. Lake informed. There is some concern that she had some expressive aphasia perhaps some mild facial drooping within the last day or so. I will therefore order a CT of her head since she is not actively moving her limbs. After she comes back from CT she will be admitted to the med surgery floor under the care of Dr. Varma for further investigation.. 12/15/19 16:30 On speaking with the son who is now present at home was present at my last ER visit with her ,he indicates that they were not able to get the fentanyl patches until yesterday at noon. His fentanyl patch was placed around 1300 hrs. yesterday .It was placed on her left upper anterior chest. He indicates that by the time they got home on Friday night from the ED after discharge she was extremely weak and barely able to get out of the vehicle even with self and his brother assisting her. She seemed to deteriorate in terms of increased weakness in that short period of time. Her brings under suspicion whether or not something else happened in the interim to cause her decreased or altered level of consciousness. 12/15/19 17:10: CT of the brain done without contrast. Ventricles along with the basal cisterns and sulci over the convexities are mildly prominent. Atherosclerotic calcification is seen within the vertebral vessels and and within the carotid siphon. Very minimal diminished density is noted within the periventricular white matter which is most likely due to small vessel ischemic demyelination changes. No evidence of intracranial hemorrhage. No midline shift or mass-effect identified. 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 This was compared to CT done in 2018. Visualized mastoid sinuses and visualized paranasal sinuses are cl no acute calvarial findings appreciated. Scattered skull lesions are seen which are an interval change from prior study raising the possibility of osteolytic metastatic disease with breast cancer or multiple myeloma being high in the differential . Correlate with our clinical suspicion of metastatic cancer of the breast causing severe bone pain. Departure - Departure Time of Disposition: 16:32 Disposition: Admitted As Inpatient 67 Condition: Poor Clinical Impression: Altered level of consciousness, Chronic renal insufficiency, stage III ( moderate), Hypercalcemia Type II diabetes mellitus Qualifiers: Diabetes mellitus manager access insulin use: with manager access use Diabetes mellitus complication status: with hyperglycemia Qualified Code(s): E11.65 - Type 2 diabetes mellitus with hyperglycemia Congestive heart failure Qualifiers: Heart failure type: diastolic Heart failure chronicity: unspecified Qualified Code(s): I50.30 - Unspecified diastolic (congestive) heart failure - Discharge Information *PRESCRIPTION DRUG MONITORING PROGRAM REVIEWED*: Not Applicable *COPY OF PRESCRIPTION DRUG MONITORING REPORT IN PATIENT JUAN CARLOS: Not Applicable Sepsis Event Note - Evaluation Sepsis Screening Result: No Definite Risk - Focused Exam Vital Signs: Vital Signs Temp Pulse Resp BP Pulse Ox 12/15/19 14:10 36.9 C 79 12 149/63 H 95 12/15/19 12:42 35.8 C L 85 22 H 90 L Date Exam was Performed: 12/15/19 Time Exam was Performed: 17:36 - My Orders Last 24 Hours: My Active Orders 12/15/19 13:00 Sodium Chloride 0.9% [Normal Saline] 1,000 ml IV ASDIRECTED 12/15/19 13:01 Blood Glucose Check, Bedside [RC] ONETIME 12/15/19 14:41 Urinary Catheter Assessment [RC] ASDIRECTED 12/15/19 14:45 Insert Urinary Catheter [OM.PC] Q24H 12/15/19 15:01 Blood Culture x2 Reflex Set [OM.PC] Stat 12/15/19 15:02 Chest 1V Frontal [CR] Stat 12/15/19 15:20 CULTURE BLOOD [BC] Stat 12/15/19 15:30 CULTURE BLOOD [BC] Stat - Assessment/Plan Last 24 Hours: My Active Orders 12/15/19 13:00 Sodium Chloride 0.9% [Normal Saline] 1,000 ml IV ASDIRECTED 12/15/19 13:01 Blood Glucose Check, Bedside [RC] ONETIME 12/15/19 14:41 Urinary Catheter Assessment [RC] ASDIRECTED 12/15/19 14:45 Insert Urinary Catheter [OM.PC] Q24H 12/15/19 15:01 Blood Culture x2 Reflex Set [OM.PC] Stat 12/15/19 15:02 Chest 1V Frontal [CR] Stat 12/15/19 15:20 CULTURE BLOOD [BC] Stat 12/15/19 15:30 CULTURE BLOOD [BC] Stat
[2019-12-15] MEDS ORDERED: Sodium Chloride 0.9% 1,000 ML IV SCH (13:00)
--- NOTE | 2019-12-15 17:09 | CT ---
Head CT Technique: Multiple axial sections through the brain were obtained. Intravenous contrast was not utilized. Comparison: Prior head CT study of 10/23/17. Findings: Old right occipital infarct is noted. Ventricles along with basal cisterns and sulci over the convexities are mildly prominent. Atherosclerotic calcification is seen within the vertebral vessels and within the carotid siphon. Very minimal diminished density is noted within the periventricular white matter which is most likely due to mild small vessel ischemic demyelination change. No evidence of intracranial hemorrhage. No midline shift or mass-effect is seen. Visualized mastoid sinuses and visualized paranasal sinuses are clear. No acute calvarial finding is appreciated. Scattered skull lesions are seen which are in interval change from prior study raising the possibility of osteolytic metastasis with breast cancer or multiple myeloma being high within the differential. Impression: 1. Senescent change with old right occipital infarct. 2. No acute intracranial abnormality is appreciated. 3. Lucent skull lesions which represent an interval change from prior head CT study. Findings most likely due to osteolytic metastasis with breast cancer or multiple myeloma being high within the differential. Diagnostic code #9 This report was dictated in MDT
[2019-12-15] MEDS ORDERED: Ondansetron 4 MG/2 ML SDV IV PRN (19:07)
[2019-12-15] MEDS ORDERED: 50% Dextrose in Water 50 ML Syringe IVPUSH PRN (19:19)
--- NOTE | 2019-12-15 19:55 | PCM.HP.2 ---
H&P History of Present Illness - General Date of Service: 12/15/19 Admit Problem/Dx: Admission Diagnosis/Problem Admission Diagnosis/Problem Altered level of consciousness - History of Present Illness Initial Comments - Free Text/Narative: 69-year-old female who lives at [facility] assisted-living was brought into the emergency department with worsening severe generalized pain. Patient has been seen in the emergency department 4 times in just over 2 weeks. Family states that the pain seemed to first start 3 or 4 weeks ago and initially she complained of arm pain and rib pain. This was a 9 out of 10 severity. Now her whole body hurts and the pain is worsening. Initial emergency department visit on November 27 her corrected calcium was 10.5 and today's corrected calcium was 14.3. Patient has a history of breast cancer treated with lumpectomy and radical lymph node dissection in the early . 2 days ago she was seen again at the emergency department and calcium corrected for hypoalbuminemia was 13.3. She was started on a fentanyl patch and since there was concern about metastatic bone disease, elevated LDH, calcium, and alkaline phosphatase, a bone scan was ordered. Bone scan has not been done yet, but I am told it can be done tomorrow. Fentanyl patch of 12 mcg/h was placed yesterday afternoon at 1. Son states that when they came home from the emergency department 2 days ago she was so weak she could not even get out of the car. She also had change in her mental status becoming more sedated. Initially it was felt that possibly the fentanyl patch had something to do with sedation, but it was only placed yesterday at 1 PM and this morning when she woke up it was missing. She is taking poor oral intake and not getting adequate nutrition. When I was in to interview her she was unable to answer most questions except when I squeeze her legs that she did complain of pain. Son also stated that she had oxygenation in the 70s and 80s the last couple of days. When I was in she was on 2 L with oxygen saturation of 100%. She has no history of lung disease or congestive heart failure. 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 Differential includes breast cancer and multiple myeloma.UA did show 1+ protein , 1+ occult blood, 10-20 WBCs, 10-20 RBCs, and 10-20 epithelial cells. White count was 8.43, hemoglobin 12.3, platelets 197, sodium normal at 140, potassium low at 3.2, BUN 49, creatinine 1.4, BUN/creatinine ratio 35, glucose 130, corrected calcium 14.3, albumin 2.9, magnesium 1.8, lactic acid 1.4, proBNP 507 , alkaline phosphatase 256, AST 92, total bilirubin 1.5, ALT 17, C-reactive protein 25.8. EKG showed normal sinus rhythm with a ventricular rate of 80 bpm. RSR prime in V1 with a nonspecific IVCD. Missing lead in V2. Poor R wave progression and nonspecific T wave flattening in lead III. Nonspecific ST depression in lead I and aVL. Past medical history includes diabetes, hypertension, CVA, peripheral neuropathy , coronary artery disease with an VT in the 90s, CABG, chronic renal insufficiency stage III, gout, chronic constipation. Stopped tobacco years ago and no alcohol. - Related Data Allergies/Adverse Reactions: Allergies Allergy/AdvReac Type Severity Reaction Status Date / Time No Known Allergies Allergy Verified 12/15/19 12:46 Home Medications: Home Meds Clopidogrel [Plavix] 75 mg PO DAILY 09/08/17 [History] DULoxetine [Cymbalta] 60 mg PO DAILY 09/08/17 [History] Gabapentin [Neurontin] 200 mg PO TID 09/08/17 [History] Pantoprazole [ProTONIX] 40 mg PO DAILY 09/08/17 [History] Rosuvastatin [Crestor] 40 mg PO BEDTIME 09/08/17 [History] allopurinoL [Zyloprim] 100 mg PO DAILY 09/08/17 [History] Celecoxib [CeleBREX] 200 mg PO BEDTIME 07/21/19 [History] Insulin Degludec [Tresiba] 100 units SQ BEDTIME 07/21/19 [History] Insulin Lispro [HumaLOG] 15 units SQ ACBREAKFAST 07/21/19 [History] Insulin Lispro [HumaLOG] 15 units SQ ACLUNCH 07/21/19 [History] Insulin Lispro [Humalog] 20 units SQ ACDINNER 07/21/19 [History] Estrogens, Conjugated [Premarin Vaginal Crm] 1 applic VAG MOTH 11/28/19 [History ] Linaclotide [Linzess] 290 mcg PO DAILY 11/28/19 [History] Pramipexole [Mirapex] 0.125 mg PO TID 11/28/19 [History] Furosemide [Lasix] 20 mg PO DAILY 12/13/19 [History] fentaNYL [Duragesic] 1 patch TD Q72H #4 patch 12/13/19 [Rx] Amlodipine/Valsartan/Hcthiazid [Lpxnz-Yubul-Sodl 10-320-25 mg] 1 tab PO DAILY [History] Insulin Lispro [Humalog] 0 unit SQ BEDTIME PRN 12/15/19 [History] Metoprolol Succinate 50 mg PO DAILY 12/15/19 [History] Past Medical History HEENT History: Reports: Impaired Vision Cardiovascular History: Reports: High Cholesterol, Hypertension Gastrointestinal History: Reports: Cholelithiasis, GERD Genitourinary History: Reports: UTI, Recurrent [employer] History: Reports: Neurological History: Reports: Neuropathy, Peripheral Psychiatric History: Reports: Anxiety Endocrine/Metabolic History: Reports: Diabetes, Type II Oncologic (Cancer) History: Reports: Breast - Infectious Disease History Infectious Disease History: Reports: Chicken Pox, Measles, Mumps - Past Surgical History HEENT Surgical History: Reports: Cataract Surgery, Tonsillectomy Cardiovascular Surgical History: Reports: Coronary Artery Bypass GI Surgical History: Reports: Appendectomy, Cholecystectomy Other GI Surgeries/Procedures: gastric banding Other Female Surgeries/Procedures: lumpectomy of the right breast for CA Other Musculoskeletal Surgeries/Procedures:: carpal tunnel isaias wrists Dermatological Surgical History: Reports: Other (See Below) Social & Family History - Family History Family Medical History: Noncontributory - Tobacco Use Smoking Status *Q: Never Smoker - Caffeine Use Caffeine Use: Reports: Coffee, Soda - Recreational Drug Use Recreational Drug Use: No - Living Situation & Occupation Living situation: Reports: Assisted Living H&P Review of Systems - Review of Systems: Review Of Systems: Unable To Obtain Reason Not Obtained: Patient lethargic Exam - Exam Exam: See Below - Vital Signs Vital Signs: Last Vital Signs Temp 98.1 F 12/15/19 18:29 Pulse 73 12/15/19 18:44 Resp 14 12/15/19 18:29 BP 162/79 H 12/15/19 18:29 Pulse Ox 100 12/15/19 18:44 - Exam Quality Assessment: Supplemental Oxygen General: Lethargic HEENT: Conjunctiva Clear, Mucosa Moist & [place], Pupils Equal, Pupils Reactive Neck: Supple, Trachea Midline, 2 Lungs: Normal Respiratory Effort, Decreased Breath Sounds Cardiovascular: Regular Rate, Regular Rhythm, Other GI/Abdominal Exam: Normal Bowel Sounds, Soft, Non-Tender, No Distention (Obese) , No Abnormal Bruit Extremities: Normal Inspection, Normal Capillary Refill, Pedal Edema (1+ at ankles), Leg Pain (Bilateral calf and thighs. Mild tenderness to shoulders.). No: Non-Tender Skin: Warm, Dry, Intact Neuro Extensive - Mental Status: Slow Response to Commands Neuro Extensive - Motor, Sensory, Reflexes: Other (Bilateral shallot packer strength diminished but equal) Psychiatric: Normal Mood - Patient Data Lab Results Last 24 hrs: Laboratory Results - last 24 hr 12/15/19 12/15/19 12/15/19 Range/Units 13:20 13:20 13:20 WBC 8.43 (3.98-10.04) K/mm3 RBC 3.79 L (3.98-5.22) M/mm3 Hgb 12.3 (11.2-15.7) gm/dl Hct 32.2 L (34.1-44.9) % MCV 85.0 (79.4-94.8) fl MCH 32.5 H (25.6-32.2) pg MCHC 38.2 H (32.2-35.5) g/dl RDW Std Deviation 50.8 H (36.4-46.3) fL Plt Count 197 (182-369) K/mm3 MPV 9.2 L (9.4-12.3) fl Neut % (Auto) 76.2 H (34.0-71.1) % Lymph % (Auto) 11.3 L (19.3-51.7) % [place] % (Auto) 11.9 (4.7-12.5) % Eos % (Auto) 0.1 L (0.7-5.8) Baso % (Auto) 0.1 (0.1-1.2) % Neut # (Auto) 6.43 H (1.56-6.13) K/mm3 Lymph # (Auto) 0.95 L (1.18-3.74) K/mm3 [place] # (Auto) 1.00 H (0.24-0.36) K/mm3 Eos # (Auto) 0.01 L (0.04-0.36) K/mm3 Baso # (Auto) 0.01 (0.01-0.08) K/mm3 Manual Slide Review Abnormal smear Sodium 140 (136-145) mEq/L Potassium 3.2 L (3.5-5.1) mEq/L Chloride 97 L (98-107) mEq/L Carbon Dioxide 35 H (21-32) mEq/L Anion Gap 11.2 (5-15) BUN 49 H (7-18) mg/dL Creatinine 1.4 H (0.55-1.02) mg/dL Est Cr Clr Drug Dosing TNP Estimated GFR (MDRD) 37 (>60) mL/min BUN/Creatinine Ratio 35.0 H (14-18) Glucose 130 H (80-115) mg/dL Lactic Acid (0.4-2.0) mmol/L Calcium 13.4 H* (8.5-10.1) mg/dL Magnesium 1.8 (1.8-2.4) mg/dl Total Bilirubin 1.5 H (0.2-1.0) mg/dL GGT (5-55) U/L AST 92 H (15-37) U/L ALT 17 (14-59) U/L Alkaline Phosphatase 256 H (46-116) U/L Troponin I (0.00-0.056) ng/mL C-Reactive Protein 25.8 H* (<1.0) mg/dL NT-Pro-B Natriuret Pep 507 H (0-125) pg/mL Total Protein 7.3 (6.4-8.2) g/dl Albumin 2.9 L (3.4-5.0) g/dl Globulin 4.4 gm/dL Albumin/Globulin Ratio 0.7 L (1-2) Urine Color (Yellow) Urine Appearance (Clear) Urine pH (5.0-8.0) Ur Specific [place] (1.005-1.030) Urine Protein (Negative) Urine Glucose (UA) (Negative) Urine Ketones (Negative) Urine Occult Blood (Negative) Urine Nitrite (Negative) Urine Bilirubin (Negative) Urine Urobilinogen (0.2-1.0) Ur Leukocyte Esterase (Negative) Urine RBC (0-5) /hpf Urine WBC (0-5) /hpf Ur Epithelial Cells (0-5) /hpf Urine Bacteria (FEW) /hpf Urine Mucus (FEW) /hpf 12/15/19 12/15/19 12/15/19 Range/Units 14:37 15:20 15:30 WBC (3.98-10.04) K/mm3 RBC (3.98-5.22) M/mm3 Hgb (11.2-15.7) gm/dl Hct (34.1-44.9) % MCV (79.4-94.8) fl MCH (25.6-32.2) pg MCHC (32.2-35.5) g/dl RDW Std Deviation (36.4-46.3) fL Plt Count (182-369) K/mm3 MPV (9.4-12.3) fl Neut % (Auto) (34.0-71.1) % Lymph % (Auto) (19.3-51.7) % [place] % (Auto) (4.7-12.5) % Eos % (Auto) (0.7-5.8) Baso % (Auto) (0.1-1.2) % Neut # (Auto) (1.56-6.13) K/mm3 Lymph # (Auto) (1.18-3.74) K/mm3 [place] # (Auto) (0.24-0.36) K/mm3 Eos # (Auto) (0.04-0.36) K/mm3 Baso # (Auto) (0.01-0.08) K/mm3 Manual Slide Review Sodium (136-145) mEq/L Potassium (3.5-5.1) mEq/L Chloride (98-107) mEq/L Carbon Dioxide (21-32) mEq/L Anion Gap (5-15) BUN (7-18) mg/dL Creatinine (0.55-1.02) mg/dL Est Cr Clr Drug Dosing Estimated GFR (MDRD) (>60) mL/min BUN/Creatinine Ratio (14-18) Glucose (80-115) mg/dL Lactic Acid (0.4-2.0) mmol/L Calcium (8.5-10.1) mg/dL Magnesium (1.8-2.4) mg/dl Total Bilirubin (0.2-1.0) mg/dL GGT 14 (5-55) U/L AST (15-37) U/L ALT (14-59) U/L Alkaline Phosphatase (46-116) U/L Troponin I < 0.017 (0.00-0.056) ng/mL C-Reactive Protein (<1.0) mg/dL NT-Pro-B Natriuret Pep (0-125) pg/mL Total Protein (6.4-8.2) g/dl Albumin (3.4-5.0) g/dl Globulin gm/dL Albumin/Globulin Ratio (1-2) Urine Color Dark yellow (Yellow) Urine Appearance Clear (Clear) Urine pH 5.5 (5.0-8.0) Ur Specific [place] > or = 1.030 (1.005-1.030) Urine Protein 1+ H (Negative) Urine Glucose (UA) Negative (Negative) Urine Ketones Negative (Negative) Urine Occult Blood 1+ H (Negative) Urine Nitrite Negative (Negative) Urine Bilirubin Negative (Negative) Urine Urobilinogen 1.0 (0.2-1.0) Ur Leukocyte Esterase Negative (Negative) Urine RBC 10-20 H (0-5) /hpf Urine WBC 10-20 H (0-5) /hpf Ur Epithelial Cells 10-20 H (0-5) /hpf Urine Bacteria Many H (FEW) /hpf Urine Mucus Many H (FEW) /hpf 06// Range/Units 15:30 WBC (3.98-10.04) K/mm3 RBC (3.98-5.22) M/mm3 Hgb (11.2-15.7) gm/dl Hct (34.1-44.9) % MCV (79.4-94.8) fl MCH (25.6-32.2) pg MCHC (32.2-35.5) g/dl RDW Std Deviation (36.4-46.3) fL Plt Count (182-369) K/mm3 MPV (9.4-12.3) fl Neut % (Auto) (34.0-71.1) % Lymph % (Auto) (19.3-51.7) % [place] % (Auto) (4.7-12.5) % Eos % (Auto) (0.7-5.8) Baso % (Auto) (0.1-1.2) % Neut # (Auto) (1.56-6.13) K/mm3 Lymph # (Auto) (1.18-3.74) K/mm3 [place] # (Auto) (0.24-0.36) K/mm3 Eos # (Auto) (0.04-0.36) K/mm3 Baso # (Auto) (0.01-0.08) K/mm3 Manual Slide Review Sodium (136-145) mEq/L Potassium (3.5-5.1) mEq/L Chloride (98-107) mEq/L Carbon Dioxide (21-32) mEq/L Anion Gap (5-15) BUN (7-18) mg/dL Creatinine (0.55-1.02) mg/dL Est Cr Clr Drug Dosing Estimated GFR (MDRD) (>60) mL/min BUN/Creatinine Ratio (14-18) Glucose (80-115) mg/dL Lactic Acid 1.4 (0.4-2.0) mmol/L Calcium (8.5-10.1) mg/dL Magnesium (1.8-2.4) mg/dl Total Bilirubin (0.2-1.0) mg/dL GGT (5-55) U/L AST (15-37) U/L ALT (14-59) U/L Alkaline Phosphatase (46-116) U/L Troponin I (0.00-0.056) ng/mL C-Reactive Protein (<1.0) mg/dL NT-Pro-B Natriuret Pep (0-125) pg/mL Total Protein (6.4-8.2) g/dl Albumin (3.4-5.0) g/dl Globulin gm/dL Albumin/Globulin Ratio (1-2) Urine Color (Yellow) Urine Appearance (Clear) Urine pH (5.0-8.0) Ur Specific [place] (1.005-1.030) Urine Protein (Negative) Urine Glucose (UA) (Negative) Urine Ketones (Negative) Urine Occult Blood (Negative) Urine Nitrite (Negative) Urine Bilirubin (Negative) Urine Urobilinogen (0.2-1.0) Ur Leukocyte Esterase (Negative) Urine RBC (0-5) /hpf Urine WBC (0-5) /hpf Ur Epithelial Cells (0-5) /hpf Urine Bacteria (FEW) /hpf Urine Mucus (FEW) /hpf Result Diagrams: 12/16/19 06:15 12/15/19 13:20 Sepsis Event Note - Evaluation Sepsis Screening Result: No Definite Risk - Focused Exam Vital Signs: Vital Signs Temp Temp Pulse Pulse Resp BP BP 12/15/19 18:44 73 12/15/19 18:34 78 12/15/19 18:31 81 12/15/19 18:29 98.1 F 83 14 162/79 H 12/15/19 14:10 98.4 F 79 12 149/63 H 12/15/19 12:42 96.5 F L 85 22 H Pulse Ox 12/15/19 18:44 100 12/15/19 18:34 100 12/15/19 18:31 99 12/15/19 18:29 94 L 12/15/19 14:10 95 12/15/19 12:42 90 L Date Exam was Performed: 12/16/19 Time Exam was Performed: 07:28 Problem List Initiated/Reviewed/Updated: Yes Orders Last 24hrs: Active Orders 24 hr Category Date Time Status Admission Status [Patient Status] [ADT] Routine ADT 12/15/19 17:09 Active Blood Glucose Check, Bedside [RC] ONETIME Care 12/15/19 13:01 Active Blood Glucose Check, Bedside [RC] QIDACANDBED Care 12/15/19 19:19 Active Insert Urinary Catheter [OM.PC] Q24H Care 12/15/19 14:45 Ordered Oxygen Therapy [RC] PRN Care 12/15/19 19:07 Active Up With Assistance [RC] ASDIRECTED Care 12/15/19 19:07 Active Urinary Catheter Assessment [RC] ASDIRECTED Care 12/15/19 19:07 Active Urinary Catheter Insertion [Insert Urinary Catheter] [ Care 12/15/19 19:15 Ordered OM.PC] Q24H VTE/DVT Education [RC] PER UNIT ROUTINE Care 12/15/19 19:07 Active Vital Signs [RC] ASDIRECTED Care 12/15/19 19:07 Active PT Evaluation and Treatment [CONS] Routine Cons 12/15/19 19:07 Active Consistent Carbohydrate Diet [DIET] Diet 12/15/19 Breakfast Active Bone Scan 3 Phase [NM] Routine Exams 12/16/19 12:00 Ordered Chest 1V Frontal [CR] Stat Exams 12/15/19 15:02 Taken C-REACTIVE PROTEIN [CHEM] AM Lab 12/16/19 05:11 Ordered CBC WITH AUTO DIFF [HEME] AM Lab 12/16/19 05:11 Ordered COMPREHENSIVE METABOLIC PN,CMP [CHEM] AM Lab 12/16/19 05:11 Ordered CULTURE BLOOD [BC] Stat Lab 12/15/19 15:20 Received CULTURE BLOOD [BC] Stat Lab 12/15/19 15:30 Received CULTURE URINE [RM] Stat Lab 12/15/19 14:37 Received MAGNESIUM [CHEM] AM Lab 12/16/19 05:11 Ordered PHOSPHORUS [CHEM] AM Lab 12/16/19 05:11 Ordered Acetaminophen [Tylenol] Med 12/15/19 19:07 Active 650 mg PO Q4H PRN Calcitonin ([place]) [Miacalcin] Med 12/15/19 19:16 Pending See Dose Instructions SUBCUT ONETIME ONE Dextrose 50% in Water Med 12/15/19 19:19 Active 50 ml IVPUSH ASDIRECTED PRN Enoxaparin [Lovenox] Med 12/16/19 09:00 Pending 40 mg SUBCUT DAILY Furosemide [Lasix] Med 12/16/19 00:01 Once 20 mg IVPUSH ONETIME ONE Insulin Lispro [HumaLOG] Med 12/15/19 22:00 Active See Protocol SUBCUT QIDACANDBED Ondansetron [Zofran] Med 12/15/19 19:07 Active 4 mg IV Q4H PRN Potassium Chloride [KCl 10 MEQ in Water 100 ML] 10 meq Med 12/15/19 19:30 Active Premix Bag 1 bag IV Q1H Sodium Chloride 0.9% [Normal Saline] 1,000 ml Med 12/15/19 13:00 Active IV ASDIRECTED Sodium Chloride 0.9% [Normal Saline] 1,000 ml Med 12/15/19 19:30 Active IV ASDIRECTED oxyCODONE Med 12/15/19 19:07 Active 5 mg PO Q4H PRN Blood Culture x2 Reflex Set [OM.PC] Stat Oth 12/15/19 15:01 Ordered Resuscitation Status Routine Resus Stat 12/15/19 19:07 Ordered Medication Orders Acetaminophen (Tylenol) 650 mg PO Q4H PRN PRN Reason: Pain (Mild 1-3)/fever Calcitonin [place] (Miacalcin) 0 units SUBCUT ONETIME ONE Stop: 12/15/19 19:17 Dextrose/Water (Dextrose 50% In Water) 50 ml IVPUSH ASDIRECTED PRN PRN Reason: Hypoglycemia Enoxaparin Sodium (Lovenox) 40 mg SUBCUT DAILY JAMES Furosemide (Lasix) 20 mg IVPUSH ONETIME ONE Stop: 12/16/19 00:02 Sodium Chloride (Normal Saline) 1,000 mls @ 150 mls/hr IV ASDIRECTED JAMES Last Admin: 12/15/19 13:10 Dose: 150 mls/hr Potassium Chloride 10 meq/ (Premix) 100 mls @ 100 mls/hr IV Q1H JAMES Stop: 12/15/19 23:29 Sodium Chloride (Normal Saline) 1,000 mls @ 150 mls/hr IV ASDIRECTED JAMES Insulin Human Lispro (Humalog) 0 unit SUBCUT QIDACANDBED JAMES; Protocol Ondansetron HCl (Zofran) 4 mg IV Q4H PRN PRN Reason: Nausea/Vomiting Oxycodone HCl (Oxycodone) 5 mg PO Q4H PRN PRN Reason: Pain (moderate 4-6) Assessment/Plan Comment:: Assessment Hypercalcemia likely secondary to metastatic cancer with breast cancer being high on the differential. Altered mental status likely secondary to hypercalcemia and hypovolemia * Corrected calcium 14.3 * Calcium has increased by 4 mg/dL in less than 2 weeks * Elevated LDH, alkaline phosphatase, and calcium pointing to bone as the cause of the hypercalcemia * AST 92 and total bilirubin 1.5 -elevated * C-reactive protein 25.8 * Reportedly poor oral intake. * Patient is on hydrochlorothiazide which can increase calcium Plan * IV hydration with normal saline 150 mL an hour * Lasix 20 mg IV x1 to help lower calcium and for heart failure * Keep urine output at 100 to 150 mL/h therefore put in urinary cath * Calcitonin 4 units/kg subcu every 12 hours if calcium responds * When renal function improves start zoledronic acid 4 mg injection. Hopefully in the morning. * Bone scan in the morning * Oxycodone 5 mg p.o. every 4 hours as needed pain * Recheck C-reactive protein, CBC, and CMP in the morning Congestive heart failure * BNP 507. Elevated from 2 days ago when it was 271 * No previous history of heart failure * Likely diastolic dysfunction * Requiring 1 to 2 L FiO2 via nasal cannula Plan * Close monitoring of oxygen saturation * Lasix as needed * Careful with rehydration * Echocardiogram Diabetes mellitus with peripheral neuropathy and renal insufficiency * Review of her medications shows she is on a large amount of insulin * Hemoglobin A1c done earlier this week 8.8% Plan * Restart home insulin at 50% of home dose secondary to poor oral intake when she is more awake and taking orally. * Bedside blood sugar 4 times daily * Sliding scale insulin * Confirm home medications prior to starting long-acting insulin * Continue gabapentin Hypokalemia * Potassium 3.2 * Likely secondary to thiazide diuretic and poor oral intake Plan * Replace potassium IV and recheck in the morning Chronic renal insufficiency likely secondary to diabetes and hypertension * Estimated GFR 37 * Likely some prerenal disease with a BUN/creatinine ratio of 35 * Blood pressure 149/63 on admission * On 4 antihypertensive medications plus Lasix * On Celebrex chronically Plan * Avoid renal toxic medications especially NSAIDs * Cautiously rehydrate * Continue amlodipine and metoprolol. * Hold valsartan initially * Stop hydrochlorothiazide secondary to elevated calcium * Lasix titrated for effect to keep urine output between 100-150 Chronic medical illnesses include anxiety, gout, chronic constipation, to include the above. VTE prophylaxis: Lovenox CODE STATUS: Full code Disposition: Admit to floor on telemetry. - Mortality Measure Prognosis:: Poor
[2019-12-15] MEDS: Potassium Chloride 10 MEQ in Premix Bag 1 BAG IV SCH ×3 (20:06→23:15)
[2019-12-15] MEDS ORDERED: Pramipexole 0.25 MG Tab PO SCH (21:00)
[2019-12-15] MEDS ORDERED: Gabapentin 100 MG Cap PO ONE (21:14)
[2019-12-15] MEDS: Sodium Chloride 0.9% 1,000 ML IV SCH (21:38)
[2019-12-15] MEDS: Pantoprazole 40 MG Tab.CR PO SCH (21:39)
[2019-12-15] MEDS ORDERED: Calcitonin (Salmon) 200 Units/ML 2 ML MDV SUBCUT ONE (21:50)
[2019-12-15] MEDS ORDERED: hydrALAZINE 20 MG/ML SDV IVPUSH PRN ×2 (22:04→22:08)
[2019-12-15] MEDS: Insulin Lispro 100 Units/ML 3 ML Vial SUBCUT SCH (23:17)
[2019-12-16] MEDS ORDERED: Furosemide 20 MG/2 ML VIAL IVPUSH ONE (00:01)
[2019-12-16] MEDS: Potassium Chloride 10 MEQ in Premix Bag 1 BAG IV SCH ×5 (00:33→13:12)
[2019-12-16] MEDS: Sodium Chloride 0.9% 1,000 ML IV SCH (04:27)
[2019-12-16] MEDS ORDERED: Sodium Chloride 0.9% 1,000 ML IV SCH (05:30)
[2019-12-16] MEDS: Insulin Lispro 100 Units/ML 3 ML Vial SUBCUT SCH ×4 (07:05→21:19)
--- NOTE | 2019-12-16 07:16 | CR ---
Chest: Portable view of the chest was obtained. Comparison: Prior chest x-ray of 12/15/19. Heart is slightly enlarged. Sternotomy wires are seen some of which appear fractured. Lung markings are mildly increased which appears stable. No acute parenchymal change is seen. Surgical clips are seen within both axillary regions. Impression: 1. Stable chest x-ray from previous study. 2. Nothing acute is seen. Diagnostic code #2 This report was dictated in MDT
[2019-12-16] MEDS ORDERED: Magnesium Sulfate/Water 4 GM in Premix Bag 1 BAG IV ONE ×2 (07:41→13:00)
[2019-12-16] MEDS: amLODIPine 10 MG Tab PO SCH (08:13)
[2019-12-16] MEDS: Clopidogrel 75 MG Tab PO SCH (08:13)
[2019-12-16] MEDS: Allopurinol 100 MG Tab PO SCH (08:17)
[2019-12-16] MEDS: DULoxetine 30 MG Cap PO SCH (08:18)
[2019-12-16] MEDS: Pramipexole 0.25 MG Tab PO SCH ×3 (08:19→21:21)
[2019-12-16] MEDS: Enoxaparin 40 MG/0.4 ML Syringe SUBCUT SCH (08:20)
[2019-12-16] MEDS: Metoprolol Succinate 50 MG Tab.ER PO SCH (08:20)
[2019-12-16] MEDS: Gabapentin 100 MG Cap PO SCH ×3 (08:20→21:22)
[2019-12-16] MEDS ORDERED: Pantoprazole 40 MG Tab.CR PO SCH (09:00)
[2019-12-16] MEDS ORDERED: Furosemide 40 MG/4 ML VIAL IVPUSH ONE ×2 (09:32→17:13)
[2019-12-16] MEDS ORDERED: Calcitonin (Salmon) 200 Units/ML 2 ML MDV SUBCUT ONE (10:00)
--- NOTE | 2019-12-16 10:57 | PCM.PN ---
- General Info Date of Service: 12/16/19 Admission Dx/Problem (Free Text): Admission Diagnosis/Problem Admission Diagnosis/Problem Altered level of consciousness Subjective Update: Patient is much more awake this morning. She is able to answer questions and order breakfast. She does complain of some low back pain but otherwise no significant pain. - Review of Systems General: Reports: No Symptoms HEENT: Reports: No Symptoms Pulmonary: Reports: No Symptoms Cardiovascular: Reports: No Symptoms Gastrointestinal: Reports: No Symptoms Musculoskeletal: Reports: Back Pain Psychiatric: Reports: No Symptoms - Patient Data Vitals - Most Recent: Last Vital Signs Temp 98.4 F 12/16/19 07:30 Pulse 72 12/16/19 08:20 Resp 20 12/16/19 07:30 BP 144/53 H 12/16/19 08:20 Pulse Ox 97 12/16/19 07:30 Weight - Most Recent: 325 lb 3.2 oz I&O - Last 24 Hours: Intake & Output 12/15/19 12/16/19 12/16/19 22:59 06:59 14:59 Intake Total 2456 Output Total 1850 100 Balance 606 -100 Imaging Impressions - Last 24 Hours: Whole-body bone scan Impression: 1. 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 2. Activity within the ribs which is less specific for change from previous trauma or less likely metastatic disease. 3. Other areas of increased activity are likely degenerative. Lab Results Last 24 Hours: Laboratory Results - last 24 hr 12/15/19 12/15/19 12/15/19 Range/Units 13:20 13:20 13:20 WBC 8.43 (3.98-10.04) K/mm3 RBC 3.79 L (3.98-5.22) M/mm3 Hgb 12.3 (11.2-15.7) gm/dl Hct 32.2 L (34.1-44.9) % MCV 85.0 (79.4-94.8) fl MCH 32.5 H (25.6-32.2) pg MCHC 38.2 H (32.2-35.5) g/dl RDW Std Deviation 50.8 H (36.4-46.3) fL Plt Count 197 (182-369) K/mm3 MPV 9.2 L (9.4-12.3) fl Neut % (Auto) 76.2 H (34.0-71.1) % Lymph % (Auto) 11.3 L (19.3-51.7) % Carbon % (Auto) 11.9 (4.7-12.5) % Eos % (Auto) 0.1 L (0.7-5.8) Baso % (Auto) 0.1 (0.1-1.2) % Neut # (Auto) 6.43 H (1.56-6.13) K/mm3 Lymph # (Auto) 0.95 L (1.18-3.74) K/mm3 Carbon # (Auto) 1.00 H (0.24-0.36) K/mm3 Eos # (Auto) 0.01 L (0.04-0.36) K/mm3 Baso # (Auto) 0.01 (0.01-0.08) K/mm3 Manual Slide Review Abnormal smear Sodium 140 (136-145) mEq/L Potassium 3.2 L (3.5-5.1) mEq/L Chloride 97 L (98-107) mEq/L Carbon Dioxide 35 H (21-32) mEq/L Anion Gap 11.2 (5-15) BUN 49 H (7-18) mg/dL Creatinine 1.4 H (0.55-1.02) mg/dL Est Cr Clr Drug Dosing TNP Estimated GFR (MDRD) 37 (>60) mL/min BUN/Creatinine Ratio 35.0 H (14-18) Glucose 130 H (80-115) mg/dL POC Glucose (80-115) mg/dL Lactic Acid (0.4-2.0) mmol/L Calcium 13.4 H* (8.5-10.1) mg/dL Phosphorus (2.6-4.7) mg/dL Magnesium 1.8 (1.8-2.4) mg/dl Total Bilirubin 1.5 H (0.2-1.0) mg/dL GGT (5-55) U/L AST 92 H (15-37) U/L ALT 17 (14-59) U/L Alkaline Phosphatase 256 H (46-116) U/L Troponin I (0.00-0.056) ng/mL C-Reactive Protein 25.8 H* (<1.0) mg/dL NT-Pro-B Natriuret Pep 507 H (0-125) pg/mL Total Protein 7.3 (6.4-8.2) g/dl Albumin 2.9 L (3.4-5.0) g/dl Globulin 4.4 gm/dL Albumin/Globulin Ratio 0.7 L (1-2) Urine Color (Yellow) Urine Appearance (Clear) Urine pH (5.0-8.0) Ur Specific Colstrip (1.005-1.030) Urine Protein (Negative) Urine Glucose (UA) (Negative) Urine Ketones (Negative) Urine Occult Blood (Negative) Urine Nitrite (Negative) Urine Bilirubin (Negative) Urine Urobilinogen (0.2-1.0) Ur Leukocyte Esterase (Negative) Urine RBC (0-5) /hpf Urine WBC (0-5) /hpf Ur Epithelial Cells (0-5) /hpf Amorphous Sediment (NOT SEEN) /hpf Urine Bacteria (FEW) /hpf Urine Mucus (FEW) /hpf MRSA (PCR) 12/15/19 12/15/19 12/15/19 Range/Units 14:37 15:20 15:30 WBC (3.98-10.04) K/mm3 RBC (3.98-5.22) M/mm3 Hgb (11.2-15.7) gm/dl Hct (34.1-44.9) % MCV (79.4-94.8) fl MCH (25.6-32.2) pg MCHC (32.2-35.5) g/dl RDW Std Deviation (36.4-46.3) fL Plt Count (182-369) K/mm3 MPV (9.4-12.3) fl Neut % (Auto) (34.0-71.1) % Lymph % (Auto) (19.3-51.7) % Carbon % (Auto) (4.7-12.5) % Eos % (Auto) (0.7-5.8) Baso % (Auto) (0.1-1.2) % Neut # (Auto) (1.56-6.13) K/mm3 Lymph # (Auto) (1.18-3.74) K/mm3 Carbon # (Auto) (0.24-0.36) K/mm3 Eos # (Auto) (0.04-0.36) K/mm3 Baso # (Auto) (0.01-0.08) K/mm3 Manual Slide Review Sodium (136-145) mEq/L Potassium (3.5-5.1) mEq/L Chloride (98-107) mEq/L Carbon Dioxide (21-32) mEq/L Anion Gap (5-15) BUN (7-18) mg/dL Creatinine (0.55-1.02) mg/dL Est Cr Clr Drug Dosing Estimated GFR (MDRD) (>60) mL/min BUN/Creatinine Ratio (14-18) Glucose (80-115) mg/dL POC Glucose (80-115) mg/dL Lactic Acid (0.4-2.0) mmol/L Calcium (8.5-10.1) mg/dL Phosphorus (2.6-4.7) mg/dL Magnesium (1.8-2.4) mg/dl Total Bilirubin (0.2-1.0) mg/dL GGT 14 (5-55) U/L AST (15-37) U/L ALT (14-59) U/L Alkaline Phosphatase (46-116) U/L Troponin I < 0.017 (0.00-0.056) ng/mL C-Reactive Protein (<1.0) mg/dL NT-Pro-B Natriuret Pep (0-125) pg/mL Total Protein (6.4-8.2) g/dl Albumin (3.4-5.0) g/dl Globulin gm/dL Albumin/Globulin Ratio (1-2) Urine Color Dark yellow (Yellow) Urine Appearance Clear (Clear) Urine pH 5.5 (5.0-8.0) Ur Specific [place] > or = 1.030 (1.005-1.030) Urine Protein 1+ H (Negative) Urine Glucose (UA) Negative (Negative) Urine Ketones Negative (Negative) Urine Occult Blood 1+ H (Negative) Urine Nitrite Negative (Negative) Urine Bilirubin Negative (Negative) Urine Urobilinogen 1.0 (0.2-1.0) Ur Leukocyte Esterase Negative (Negative) Urine RBC 10-20 H (0-5) /hpf Urine WBC 10-20 H (0-5) /hpf Ur Epithelial Cells 10-20 H (0-5) /hpf Amorphous Sediment (NOT SEEN) /hpf Urine Bacteria Many H (FEW) /hpf Urine Mucus Many H (FEW) /hpf MRSA (PCR) 12/15/19 12/15/19 12/15/19 Range/Units 15:30 21:07 21:35 WBC (3.98-10.04) K/mm3 RBC (3.98-5.22) M/mm3 Hgb (11.2-15.7) gm/dl Hct (34.1-44.9) % MCV (79.4-94.8) fl MCH (25.6-32.2) pg MCHC (32.2-35.5) g/dl RDW Std Deviation (36.4-46.3) fL Plt Count (182-369) K/mm3 MPV (9.4-12.3) fl Neut % (Auto) (34.0-71.1) % Lymph % (Auto) (19.3-51.7) % Carbon % (Auto) (4.7-12.5) % Eos % (Auto) (0.7-5.8) Baso % (Auto) (0.1-1.2) % Neut # (Auto) (1.56-6.13) K/mm3 Lymph # (Auto) (1.18-3.74) K/mm3 Carbon # (Auto) (0.24-0.36) K/mm3 Eos # (Auto) (0.04-0.36) K/mm3 Baso # (Auto) (0.01-0.08) K/mm3 Manual Slide Review Sodium (136-145) mEq/L Potassium (3.5-5.1) mEq/L Chloride (98-107) mEq/L Carbon Dioxide (21-32) mEq/L Anion Gap (5-15) BUN (7-18) mg/dL Creatinine (0.55-1.02) mg/dL Est Cr Clr Drug Dosing Estimated GFR (MDRD) (>60) mL/min BUN/Creatinine Ratio (14-18) Glucose (80-115) mg/dL POC Glucose 93 (80-115) mg/dL Lactic Acid 1.4 (0.4-2.0) mmol/L Calcium (8.5-10.1) mg/dL Phosphorus (2.6-4.7) mg/dL Magnesium (1.8-2.4) mg/dl Total Bilirubin (0.2-1.0) mg/dL GGT (5-55) U/L AST (15-37) U/L ALT (14-59) U/L Alkaline Phosphatase (46-116) U/L Troponin I (0.00-0.056) ng/mL C-Reactive Protein (<1.0) mg/dL NT-Pro-B Natriuret Pep (0-125) pg/mL Total Protein (6.4-8.2) g/dl Albumin (3.4-5.0) g/dl Globulin gm/dL Albumin/Globulin Ratio (1-2) Urine Color (Yellow) Urine Appearance (Clear) Urine pH (5.0-8.0) Ur Specific [place]strip (1.005-1.030) Urine Protein (Negative) Urine Glucose (UA) (Negative) Urine Ketones (Negative) Urine Occult Blood (Negative) Urine Nitrite (Negative) Urine Bilirubin (Negative) Urine Urobilinogen (0.2-1.0) Ur Leukocyte Esterase (Negative) Urine RBC (0-5) /hpf Urine WBC (0-5) /hpf Ur Epithelial Cells (0-5) /hpf Amorphous Sediment (NOT SEEN) /hpf Urine Bacteria (FEW) /hpf Urine Mucus (FEW) /hpf MRSA (PCR) Negative 12/15/19 12/16/19 12/16/19 Range/Units 23:51 06:15 06:15 WBC 7.25 (3.98-10.04) K/mm3 RBC 2.63 L (3.98-5.22) M/mm3 Hgb 10.4 L D (11.2-15.7) gm/dl Hct 23.3 L (34.1-44.9) % MCV 88.6 D (79.4-94.8) fl MCH 39.5 H (25.6-32.2) pg MCHC 44.6 H (32.2-35.5) g/dl RDW Std Deviation 51.3 H (36.4-46.3) fL Plt Count 193 (182-369) K/mm3 MPV 9.8 (9.4-12.3) fl Neut % (Auto) 72.2 H (34.0-71.1) % Lymph % (Auto) 13.0 L (19.3-51.7) % Carbon % (Auto) 13.9 H (4.7-12.5) % Eos % (Auto) 0.4 L (0.7-5.8) Baso % (Auto) 0.1 (0.1-1.2) % Neut # (Auto) 5.23 (1.56-6.13) K/mm3 Lymph # (Auto) 0.94 L (1.18-3.74) K/mm3 Carbon # (Auto) 1.01 H (0.24-0.36) K/mm3 Eos # (Auto) 0.03 L (0.04-0.36) K/mm3 Baso # (Auto) 0.01 (0.01-0.08) K/mm3 Manual Slide Review Abnormal smear Sodium 139 (136-145) mEq/L Potassium 3.3 L (3.5-5.1) mEq/L Chloride 99 (98-107) mEq/L Carbon Dioxide 34 H (21-32) mEq/L Anion Gap 9.3 (5-15) BUN 40 H (7-18) mg/dL Creatinine 1.2 H (0.55-1.02) mg/dL Est Cr Clr Drug Dosing 48.52 Estimated GFR (MDRD) 45 (>60) mL/min BUN/Creatinine Ratio 33.3 H (14-18) Glucose 102 (80-115) mg/dL POC Glucose (80-115) mg/dL Lactic Acid (0.4-2.0) mmol/L Calcium 11.3 H D (8.5-10.1) mg/dL Phosphorus 3.2 (2.6-4.7) mg/dL Magnesium 1.4 L (1.8-2.4) mg/dl Total Bilirubin 1.5 H (0.2-1.0) mg/dL GGT (5-55) U/L AST 64 H (15-37) U/L ALT 19 (14-59) U/L Alkaline Phosphatase 205 H (46-116) U/L Troponin I (0.00-0.056) ng/mL C-Reactive Protein 29.6 H* (<1.0) mg/dL NT-Pro-B Natriuret Pep (0-125) pg/mL Total Protein 6.6 (6.4-8.2) g/dl Albumin 2.4 L (3.4-5.0) g/dl Globulin 4.2 gm/dL Albumin/Globulin Ratio 0.6 L (1-2) Urine Color Yellow (Yellow) Urine Appearance Slt cloudy H (Clear) Urine pH 5.5 (5.0-8.0) Ur Specific Colstrip > or = 1.030 (1.005-1.030) Urine Protein 2+ H (Negative) Urine Glucose (UA) Negative (Negative) Urine Ketones Negative (Negative) Urine Occult Blood 2+ H (Negative) Urine Nitrite Negative (Negative) Urine Bilirubin Negative (Negative) Urine Urobilinogen 4.0 H (0.2-1.0) Ur Leukocyte Esterase Negative (Negative) Urine RBC 20-30 H (0-5) /hpf Urine WBC Not seen (0-5) /hpf Ur Epithelial Cells 5-10 H (0-5) /hpf Amorphous Sediment Few H (NOT SEEN) /hpf Urine Bacteria Moderate H (FEW) /hpf Urine Mucus Not seen (FEW) /hpf MRSA (PCR) 12/16/19 Range/Units 06:55 WBC (3.98-10.04) K/mm3 RBC (3.98-5.22) M/mm3 Hgb (11.2-15.7) gm/dl Hct (34.1-44.9) % MCV (79.4-94.8) fl MCH (25.6-32.2) pg MCHC (32.2-35.5) g/dl RDW Std Deviation (36.4-46.3) fL Plt Count (182-369) K/mm3 MPV (9.4-12.3) fl Neut % (Auto) (34.0-71.1) % Lymph % (Auto) (19.3-51.7) % Carbon % (Auto) (4.7-12.5) % Eos % (Auto) (0.7-5.8) Baso % (Auto) (0.1-1.2) % Neut # (Auto) (1.56-6.13) K/mm3 Lymph # (Auto) (1.18-3.74) K/mm3 Carbon # (Auto) (0.24-0.36) K/mm3 Eos # (Auto) (0.04-0.36) K/mm3 Baso # (Auto) (0.01-0.08) K/mm3 Manual Slide Review Sodium (136-145) mEq/L Potassium (3.5-5.1) mEq/L Chloride (98-107) mEq/L Carbon Dioxide (21-32) mEq/L Anion Gap (5-15) BUN (7-18) mg/dL Creatinine (0.55-1.02) mg/dL Est Cr Clr Drug Dosing Estimated GFR (MDRD) (>60) mL/min BUN/Creatinine Ratio (14-18) Glucose (80-115) mg/dL POC Glucose 105 (80-115) mg/dL Lactic Acid (0.4-2.0) mmol/L Calcium (8.5-10.1) mg/dL Phosphorus (2.6-4.7) mg/dL Magnesium (1.8-2.4) mg/dl Total Bilirubin (0.2-1.0) mg/dL GGT (5-55) U/L AST (15-37) U/L ALT (14-59) U/L Alkaline Phosphatase (46-116) U/L Troponin I (0.00-0.056) ng/mL C-Reactive Protein (<1.0) mg/dL NT-Pro-B Natriuret Pep (0-125) pg/mL Total Protein (6.4-8.2) g/dl Albumin (3.4-5.0) g/dl Globulin gm/dL Albumin/Globulin Ratio (1-2) Urine Color (Yellow) Urine Appearance (Clear) Urine pH (5.0-8.0) Ur Specific Colstrip (1.005-1.030) Urine Protein (Negative) Urine Glucose (UA) (Negative) Urine Ketones (Negative) Urine Occult Blood (Negative) Urine Nitrite (Negative) Urine Bilirubin (Negative) Urine Urobilinogen (0.2-1.0) Ur Leukocyte Esterase (Negative) Urine RBC (0-5) /hpf Urine WBC (0-5) /hpf Ur Epithelial Cells (0-5) /hpf Amorphous Sediment (NOT SEEN) /hpf Urine Bacteria (FEW) /hpf Urine Mucus (FEW) /hpf MRSA (PCR) Med Orders - Current: Current Medications Acetaminophen (Tylenol) 650 mg PO Q4H PRN PRN Reason: Pain (Mild 1-3)/fever Allopurinol (Zyloprim) 100 mg PO DAILY [facility] Last Admin: 12/16/19 08:17 Dose: 100 mg Amlodipine Besylate (Norvasc) 10 mg PO DAILY [facility] Last Admin: 12/16/19 08:13 Dose: 10 mg Clopidogrel Bisulfate (Plavix) 75 mg PO DAILY [facility] Last Admin: 12/16/19 08:13 Dose: 75 mg Dextrose/Water (Dextrose 50% In Water) 50 ml IVPUSH ASDIRECTED PRN PRN Reason: Hypoglycemia Duloxetine HCl (Cymbalta) 60 mg PO DAILY [facility] Last Admin: 12/16/19 08:18 Dose: 60 mg Enoxaparin Sodium (Lovenox) 40 mg SUBCUT DAILY [facility] Last Admin: 12/16/19 08:20 Dose: 40 mg Gabapentin (Neurontin) 200 mg PO TID [facility] Last Admin: 12/16/19 08:20 Dose: 200 mg Hydralazine HCl (Apresoline) 10 mg IVPUSH Q6H PRN PRN Reason: Hypertension Sodium Chloride (Normal Saline) 1,000 mls @ 100 mls/hr IV ASDIRECTED [facility] Potassium Chloride 10 meq/ (Premix) 100 mls @ 100 mls/hr IV Q1H [facility] Stop: 12/16/19 11:44 Last Admin: 12/16/19 09:59 Dose: 100 mls/hr Magnesium Sulfate 4 gm/ Premix 50 mls @ 12.5 mls/hr IV ONETIME ONE Stop: 12/16/19 16:59 Insulin Human Lispro (Humalog) 0 unit SUBCUT QIDACANDBED [facility]; Protocol Last Admin: 12/16/19 07:05 Dose: Not Given Metoprolol Succinate (Toprol Xl) 50 mg PO DAILY [facility] Last Admin: 12/16/19 08:20 Dose: 50 mg Ondansetron HCl (Zofran) 4 mg IV Q4H PRN PRN Reason: Nausea/Vomiting Oxycodone HCl (Oxycodone) 5 mg PO Q4H PRN PRN Reason: Pain (moderate 4-6) Pantoprazole Sodium (Protonix) 40 mg PO BEDTIME [facility] Last Admin: 12/15/19 21:39 Dose: 40 mg Pramipexole Dihydrochloride (Mirapex) 0.125 mg PO TID [facility] Last Admin: 12/16/19 08:19 Dose: 0.125 mg Rosuvastatin Calcium (Crestor) 40 mg PO BEDTIME JAMES Discontinued Medications Calcitonin [place] (Miacalcin) 600 units SUBCUT ONETIME ONE Stop: 12/15/19 21:51 Last Admin: 12/15/19 22:03 Dose: Not Given Calcitonin [place] (Miacalcin) 600 units SUBCUT ONETIME ONE Stop: 12/16/19 10:01 Furosemide (Lasix) 20 mg IVPUSH ONETIME ONE Stop: 12/16/19 00:02 Last Admin: 12/16/19 00:33 Dose: 20 mg Furosemide (Lasix) 20 mg IVPUSH NOW ONE Stop: 12/16/19 09:33 Last Admin: 12/16/19 10:03 Dose: 20 mg Gabapentin (Neurontin) 200 mg PO ONETIME ONE Stop: 12/15/19 21:15 Last Admin: 12/15/19 21:39 Dose: 200 mg Hydralazine HCl (Apresoline) 10 mg IVPUSH Q6H PRN PRN Reason: Hypertension Sodium Chloride (Normal Saline) 1,000 mls @ 150 mls/hr IV ASDIRECTED [facility] Last Admin: 12/15/19 13:10 Dose: 150 mls/hr Potassium Chloride 10 meq/ (Premix) 100 mls @ 100 mls/hr IV Q1H [facility] Stop: 12/15/19 23:29 Last Admin: 12/16/19 00:33 Dose: 100 mls/hr Sodium Chloride (Normal Saline) 1,000 mls @ 150 mls/hr IV ASDIRECTED [facility] Last Admin: 12/16/19 04:27 Dose: 150 mls/hr Magnesium Sulfate 4 gm/ Premix 50 mls @ 12.5 mls/hr IV ONETIME ONE Stop: 12/16/19 11:40 Last Admin: 12/16/19 09:31 Dose: Not Given Pantoprazole Sodium (Protonix) 40 mg PO DAILY [facility] Last Admin: 12/16/19 08:18 Dose: 40 mg Pramipexole Dihydrochloride (Mirapex) 0.125 mg PO BEDTIME [facility] Last Admin: 12/15/19 21:40 Dose: 0.125 mg - Exam Quality Assessment: Supplemental Oxygen General: Alert HEENT: Pupils Equal, Mucous Membr. Moist/Enigma Neck: Supple Lungs: Normal Respiratory Effort, Decreased Breath Sounds (Slight left lower crackles) Cardiovascular: Regular Rate, Regular Rhythm GI/Abdominal Exam: Normal Bowel Sounds, Soft, Non-Tender, No Distention Extremities: Pedal Edema (1+ bilateral pitting edema to the ankles), Leg Pain ( Bilateral calf tenderness) Skin: Warm, Dry, Intact Neurological: No New Focal Deficit Sepsis Event Note - Evaluation Sepsis Screening Result: No Definite Risk - Focused Exam Vital Signs: Vital Signs Temp Pulse Resp BP Pulse Ox 12/16/19 08:20 72 144/53 H 12/16/19 08:13 144/53 H 12/16/19 07:30 98.4 F 70 20 128/48 L 97 12/16/19 04:17 99.1 F 85 20 151/77 H 96 12/16/19 01:24 97.3 F 73 20 152/94 H 99 Date Exam was Performed: 12/16/19 Time Exam was Performed: 15:41 - Problem List Review Problem List Initiated/Reviewed/Updated: Yes - My Orders Last 24 Hours: My Active Orders 12/15/19 14:37 CULTURE URINE [RM] Stat 12/15/19 19:07 Oxygen Therapy [RC] PRN Up With Assistance [RC] BID Urinary Catheter Assessment [RC] 04,10,16,22 VTE/DVT Education [RC] DAILY Vital Signs [RC] Q4HR PT Evaluation and Treatment [CONS] Routine Acetaminophen [Tylenol] 650 mg PO Q4H PRN Ondansetron [Zofran] 4 mg IV Q4H PRN oxyCODONE 5 mg PO Q4H PRN Resuscitation Status Routine 12/15/19 19:15 Urinary Catheter Insertion [Insert Urinary Catheter] [OM.PC] Q24H 12/15/19 19:19 Blood Glucose Check, Bedside [RC] QIDACANDBED Dextrose 50% in Water 50 ml IVPUSH ASDIRECTED PRN 12/15/19 21:00 Pantoprazole [ProTONIX] 40 mg PO BEDTIME 12/15/19 22:00 Insulin Lispro [HumaLOG] See Protocol SUBCUT QIDACANDBED 12/15/19 22:08 hydrALAZINE [Apresoline] 10 mg IVPUSH Q6H PRN 12/16/19 Echo Comp wo Cont [US] Routine 12/16/19 05:25 Communication Order [RC] QID 12/16/19 05:30 Sodium Chloride 0.9% [Normal Saline] 1,000 ml IV ASDIRECTED 12/16/19 07:45 Potassium Chloride [KCl 10 MEQ in Water 100 ML] 10 meq Premix Bag 1 bag IV Q1H 12/16/19 09:00 Clopidogrel [Plavix] 75 mg PO DAILY DULoxetine [Cymbalta] 60 mg PO DAILY Enoxaparin [Lovenox] 40 mg SUBCUT DAILY Gabapentin [Neurontin] 200 mg PO TID Metoprolol Succinate [Toprol XL] 50 mg PO DAILY Pramipexole [Mirapex] 0.125 mg PO TID allopurinoL [Zyloprim] 100 mg PO DAILY amLODIPine [Norvasc] 10 mg PO DAILY 12/16/19 12:30 Bone Scan Whole Body [NM] Routine 12/16/19 13:00 Magnesium Sulfate/Water [Magnesium Sulfate in Water Premix] 4 gm Premix Bag 1 bag IV ONETIME 12/16/19 21:00 Rosuvastatin [Crestor] 40 mg PO BEDTIME - Plan Plan:: Assessment Hypercalcemia likely secondary to metastatic cancer with breast cancer being high on the differential. Altered mental status likely secondary to hypercalcemia and hypovolemia * Corrected calcium 14.3-->12.6 * Calcium has increased by 4 mg/dL in less than 2 weeks * Elevated LDH, alkaline phosphatase, and calcium pointing to bone as the cause of the hypercalcemia * AST 92 and total bilirubin 1.5 -elevated * C-reactive protein 25.8 * Reportedly poor oral intake. 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 * Oxycodone 5 mg p.o. every 4 hours as needed pain * Recheck C-reactive protein, CBC, and CMP in the morning * Zoledronic acid 4 mg Congestive heart failure * BNP 507. 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 * Bedside blood sugar 4 times daily * Sliding scale insulin * Confirm home medications prior to starting long-acting insulin * Continue gabapentin Hypokalemia, hypomagnesemia * Potassium 3.2-->3.3 * Magnesium 1.4 * Likely secondary to thiazide diuretic and poor oral intake Plan * Replace potassium IV and recheck in the morning * Stop thiazide diuretic Chronic renal insufficiency likely secondary to diabetes and hypertension * Estimated GFR 37-->45 * Blood pressure 149/63 on admission * On 4 antihypertensive medications plus Lasix * On Celebrex chronically Plan * Avoid renal toxic medications especially NSAIDs * Cautiously rehydrate * Continue amlodipine and metoprolol. * Hold valsartan initially * Stop hydrochlorothiazide secondary to elevated calcium * Lasix titrated for effect to keep urine output between 100-150 Chronic medical illnesses include anxiety, gout, chronic constipation, to include the above. VTE prophylaxis: Lovenox CODE STATUS: Full code Disposition: Admit to floor on telemetry.
--- NOTE | 2019-12-16 13:38 | NM ---
Bone scan Technique: 23.8 mCi of technetium 99m MDP was given intravenously. Whole body scintigraphic imaging was obtained. Findings: Multiple small areas of increased activity are seen within the skull. There are 2 areas of increased activity within the anterior ribs, one on each side. These are less specific for metastatic disease versus change from prior trauma. Activity within the ankles and toes as well as knees and right shoulder having a pattern typical the degenerative change. No other definite findings of metastatic disease are seen. Activity noted within the mandible and maxilla likely relating to previous periodontal disease. Impression: 1. 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 2. Activity within the ribs which is less specific for change from previous trauma or less likely metastatic disease. 3. Other areas of increased activity are likely degenerative. Diagnostic code #3 This report was dictated in MDT
[2019-12-16] MEDS ORDERED: Zoledronic Acid 4 MG in Sodium Chloride 0.9% 100 ML IV ONE ×2 (15:30→19:00)
[2019-12-16] MEDS: oxyCODONE 5 MG Tab PO PRN ×2 (18:51→23:46)
[2019-12-16] MEDS: Insulin Glarg,Human.Rec.Analog 100 Unit/ML SUBCUT SCH (21:20)
[2019-12-16] MEDS: Pantoprazole 40 MG Tab.CR PO SCH (21:21)
[2019-12-16] MEDS: Rosuvastatin 10 MG Tab PO SCH (21:21)
[2019-12-17] MEDS ORDERED: Magnesium Hydroxide 400 MG/5 ML Susp 30 ML Cup PO PRN (03:09)
[2019-12-17] MEDS ORDERED: Magnesium Sulfate/Water 2 GM in Premix Bag 1 BAG IV ONE (08:07)
[2019-12-17] MEDS: Insulin Lispro 100 Units/ML 3 ML Vial SUBCUT SCH ×5 (08:27→22:07)
[2019-12-17] MEDS: Enoxaparin 40 MG/0.4 ML Syringe SUBCUT SCH (08:31)
[2019-12-17] MEDS: oxyCODONE 5 MG Tab PO PRN (08:36)
[2019-12-17] MEDS: Acetaminophen 325 MG Tab PO PRN (08:37)
[2019-12-17] MEDS: Potassium Chloride 10 MEQ in Premix Bag 1 BAG IV SCH ×4 (08:38→15:04)
[2019-12-17] MEDS: Metoprolol Succinate 50 MG Tab.ER PO SCH (08:43)
[2019-12-17] MEDS: Gabapentin 100 MG Cap PO SCH ×4 (08:44→22:04)
[2019-12-17] MEDS: Pramipexole 0.25 MG Tab PO SCH ×4 (08:45→22:04)
[2019-12-17] MEDS: Clopidogrel 75 MG Tab PO SCH (08:46)
[2019-12-17] MEDS: amLODIPine 10 MG Tab PO SCH (08:46)
[2019-12-17] MEDS: DULoxetine 30 MG Cap PO SCH (08:46)
[2019-12-17] MEDS: Allopurinol 100 MG Tab PO SCH (08:47)
[2019-12-17] MEDS: Sodium Chloride 0.9% 1,000 ML IV SCH (09:06)
[2019-12-17] MEDS ORDERED: fentaNYL 12 MCG/HR Transdermal Patch TRDERM SCH (09:30)
--- NOTE | 2019-12-17 10:45 | PCM.PN ---
- General Info Date of Service: 12/17/19 Admission Dx/Problem (Free Text): Admission Diagnosis/Problem Admission Diagnosis/Problem Altered level of consciousness Subjective Update: Patient complains of bilateral hip pain. She continues to be weak. She is eating 50 to 100% of her meals. Physical therapy recommends SNF Functional Status: Denies: Pain Controlled - Review of Systems General: Reports: Weakness, Fatigue HEENT: Reports: No Symptoms Pulmonary: Reports: No Symptoms Cardiovascular: Reports: No Symptoms Gastrointestinal: Reports: No Symptoms Musculoskeletal: Reports: Other - Patient Data Vitals - Most Recent: Last Vital Signs Temp 98.1 F 12/17/19 08:20 Pulse 82 12/17/19 08:43 Resp 24 H 12/17/19 08:20 BP 155/72 H 12/17/19 08:46 Pulse Ox 94 L 12/17/19 08:20 Weight - Most Recent: 327 lb 3.2 oz I&O - Last 24 Hours: Intake & Output 12/16/19 12/17/19 12/17/19 22:59 06:59 14:59 Intake Total 2320 705 Output Total 1835 600 190 Balance 485 105 -190 Imaging Impressions - Last 24 Hours: Echocardiogram December 16, 2019 Summary: 1. The left ventricular internal cavity size is normal. 2. Normal left ventricular systolic function. 3. Ventricular injection fraction, by visual estimation, is 60 to 65%. 4. No regional wall motion abnormalities. 5. Impaired relaxation (grade 1) pattern of LV diastolic filling. 6. Moderate asymmetric left ventricular hypertrophy. 7. Trace mitral valve regurgitation. 8. Mild tricuspid valve regurgitation. 9. The right ventricular systolic pressure is mildly elevated at 42.7 mmHg. 10. The inferior vena cava is normal. Lab Results Last 24 Hours: Laboratory Results - last 24 hr 12/16/19 12/16/19 12/17/19 Range/Units 17:06 20:56 05:40 WBC 6.50 (3.98-10.04) K/mm3 RBC 3.40 L (3.98-5.22) M/mm3 Hgb 10.3 L (11.2-15.7) gm/dl Hct 29.1 L (34.1-44.9) % MCV 85.6 D (79.4-94.8) fl MCH 30.3 (25.6-32.2) pg MCHC 35.4 (32.2-35.5) g/dl RDW Std Deviation 50.4 H (36.4-46.3) fL Plt Count 209 (182-369) K/mm3 MPV 9.3 L (9.4-12.3) fl Neut % (Auto) 71.3 H (34.0-71.1) % Lymph % (Auto) 12.8 L (19.3-51.7) % [place] % (Auto) 13.7 H (4.7-12.5) % Eos % (Auto) 1.5 (0.7-5.8) Baso % (Auto) 0.2 (0.1-1.2) % Neut # (Auto) 4.64 (1.56-6.13) K/mm3 Lymph # (Auto) 0.83 L (1.18-3.74) K/mm3 [place] # (Auto) 0.89 H (0.24-0.36) K/mm3 Eos # (Auto) 0.10 (0.04-0.36) K/mm3 Baso # (Auto) 0.01 (0.01-0.08) K/mm3 Sodium (136-145) mEq/L Potassium (3.5-5.1) mEq/L Chloride (98-107) mEq/L Carbon Dioxide (21-32) mEq/L Anion Gap (5-15) BUN (7-18) mg/dL Creatinine (0.55-1.02) mg/dL Est Cr Clr Drug Dosing mL/min Estimated GFR (MDRD) (>60) mL/min BUN/Creatinine Ratio (14-18) Glucose (80-115) mg/dL POC Glucose 178 H 269 H (80-115) mg/dL Calcium (8.5-10.1) mg/dL Magnesium (1.8-2.4) mg/dl Total Bilirubin (0.2-1.0) mg/dL AST (15-37) U/L ALT (14-59) U/L Alkaline Phosphatase (46-116) U/L Total Protein (6.4-8.2) g/dl Albumin (3.4-5.0) g/dl Globulin gm/dL Albumin/Globulin Ratio (1-2) //20 Range/Units 05:40 WBC (3.98-10.04) K/mm3 RBC (3.98-5.22) M/mm3 Hgb (11.2-15.7) gm/dl Hct (34.1-44.9) % MCV (79.4-94.8) fl MCH (25.6-32.2) pg MCHC (32.2-35.5) g/dl RDW Std Deviation (36.4-46.3) fL Plt Count (182-369) K/mm3 MPV (9.4-12.3) fl Neut % (Auto) (34.0-71.1) % Lymph % (Auto) (19.3-51.7) % [place] % (Auto) (4.7-12.5) % Eos % (Auto) (0.7-5.8) Baso % (Auto) (0.1-1.2) % Neut # (Auto) (1.56-6.13) K/mm3 Lymph # (Auto) (1.18-3.74) K/mm3 [place] # (Auto) (0.24-0.36) K/mm3 Eos # (Auto) (0.04-0.36) K/mm3 Baso # (Auto) (0.01-0.08) K/mm3 Sodium 134 L (136-145) mEq/L Potassium 3.4 L (3.5-5.1) mEq/L Chloride 96 L (98-107) mEq/L Carbon Dioxide 34 H (21-32) mEq/L Anion Gap 7.4 (5-15) BUN 34 H (7-18) mg/dL Creatinine 1.2 H (0.55-1.02) mg/dL Est Cr Clr Drug Dosing 48.52 mL/min Estimated GFR (MDRD) 45 (>60) mL/min BUN/Creatinine Ratio 28.3 H (14-18) Glucose 187 H (80-115) mg/dL POC Glucose (80-115) mg/dL Calcium 10.8 H (8.5-10.1) mg/dL Magnesium 1.8 (1.8-2.4) mg/dl Total Bilirubin 1.7 H (0.2-1.0) mg/dL AST 42 H (15-37) U/L ALT 15 (14-59) U/L Alkaline Phosphatase 196 H (46-116) U/L Total Protein 6.6 (6.4-8.2) g/dl Albumin 2.3 L (3.4-5.0) g/dl Globulin 4.3 gm/dL Albumin/Globulin Ratio 0.5 L (1-2) Cesario Results Last 24 Hours: Microbiology 12/15/19 14:37 Urine Culture - Final Urine, Catheterized NO GROWTH AFTER 2 DAYS 12/15/19 15:30 Aerobic Blood Culture - Preliminary Blood - Venous NO GROWTH AFTER 1 DAY Anaerobic Blood Culture - Preliminary NO GROWTH AFTER 1 DAY 12/15/19 15:20 Aerobic Blood Culture - Preliminary Blood - Venous - Lab Draw NO GROWTH AFTER 1 DAY Anaerobic Blood Culture - Preliminary NO GROWTH AFTER 1 DAY Med Orders - Current: Current Medications Acetaminophen (Tylenol) 650 mg PO Q4H PRN PRN Reason: Pain (Mild 1-3)/fever Last Admin: 12/17/19 08:37 Dose: 650 mg Allopurinol (Zyloprim) 100 mg PO DAILY [facility] Last Admin: 12/17/19 08:47 Dose: 100 mg Amlodipine Besylate (Norvasc) 10 mg PO DAILY [facility] Last Admin: 12/17/19 08:46 Dose: 10 mg Clopidogrel Bisulfate (Plavix) 75 mg PO DAILY [facility] Last Admin: 12/17/19 08:46 Dose: 75 mg Dextrose/Water (Dextrose 50% In Water) 50 ml IVPUSH ASDIRECTED PRN PRN Reason: Hypoglycemia Duloxetine HCl (Cymbalta) 60 mg PO DAILY [facility] Last Admin: 12/17/19 08:46 Dose: 60 mg Enoxaparin Sodium (Lovenox) 40 mg SUBCUT DAILY [facility] Last Admin: 12/17/19 08:31 Dose: 40 mg Fentanyl (Duragesic) 12 mcg TRDERM Q72H [facility] Gabapentin (Neurontin) 200 mg PO TID [facility] Last Admin: 12/17/19 08:44 Dose: 200 mg Hydralazine HCl (Apresoline) 10 mg IVPUSH Q6H PRN PRN Reason: Hypertension Potassium Chloride 10 meq/ (Premix) 100 mls @ 100 mls/hr IV Q1H [facility] Stop: 12/17/19 12:14 Last Admin: 12/17/19 08:38 Dose: 100 mls/hr Sodium Chloride (Normal Saline) 1,000 mls @ 50 mls/hr IV ASDIRECTED [facility] Last Admin: 12/17/19 09:06 Dose: 50 mls/hr Insulin Glargine (Lantus) 50 unit SUBCUT BEDTIME [facility] Last Admin: 12/16/19 21:20 Dose: 50 units Insulin Human Lispro (Humalog) 0 unit SUBCUT QIDACANDBED [facility]; Protocol Last Admin: 12/17/19 08:27 Dose: 2 units Magnesium Hydroxide (Milk Of Magnesia) 30 ml PO ONETIME PRN PRN Reason: Constipation Last Admin: 12/17/19 05:30 Dose: 30 ml Metoprolol Succinate (Toprol Xl) 50 mg PO DAILY [facility] Last Admin: 12/17/19 08:43 Dose: 50 mg Miscellaneous Information (Remove Patch) 0 ea TRDERM Q72H [facility] Ondansetron HCl (Zofran) 4 mg IV Q4H PRN PRN Reason: Nausea/Vomiting Oxycodone HCl (Oxycodone) 5 mg PO Q4H PRN PRN Reason: Pain (moderate 4-6) Last Admin: 12/17/19 08:36 Dose: 5 mg Pantoprazole Sodium (Protonix) 40 mg PO BEDTIME [facility] Last Admin: 12/16/19 21:21 Dose: 40 mg Pramipexole Dihydrochloride (Mirapex) 0.125 mg PO TID [facility] Last Admin: 12/17/19 08:45 Dose: 0.125 mg Rosuvastatin Calcium (Crestor) 40 mg PO BEDTIME [facility] Last Admin: 12/16/19 21:21 Dose: 40 mg Discontinued Medications Calcitonin Edwards (Miacalcin) 600 units SUBCUT ONETIME ONE Stop: 12/15/19 21:51 Last Admin: 12/15/19 22:03 Dose: Not Given Calcitonin Edwards (Miacalcin) 600 units SUBCUT ONETIME ONE Stop: 12/16/19 10:01 Furosemide (Lasix) 20 mg IVPUSH ONETIME ONE Stop: 12/16/19 00:02 Last Admin: 12/16/19 00:33 Dose: 20 mg Furosemide (Lasix) 20 mg IVPUSH NOW ONE Stop: 12/16/19 09:33 Last Admin: 12/16/19 10:03 Dose: 20 mg Furosemide (Lasix) 20 mg IVPUSH NOW ONE Stop: 12/16/19 17:14 Last Admin: 12/16/19 17:47 Dose: 20 mg Gabapentin (Neurontin) 200 mg PO ONETIME ONE Stop: 12/15/19 21:15 Last Admin: 12/15/19 21:39 Dose: 200 mg Hydralazine HCl (Apresoline) 10 mg IVPUSH Q6H PRN PRN Reason: Hypertension Sodium Chloride (Normal Saline) 1,000 mls @ 150 mls/hr IV ASDIRECTED [facility] Last Admin: 12/15/19 13:10 Dose: 150 mls/hr Potassium Chloride 10 meq/ (Premix) 100 mls @ 100 mls/hr IV Q1H [facility] Stop: 12/15/19 23:29 Last Admin: 12/16/19 00:33 Dose: 100 mls/hr Sodium Chloride (Normal Saline) 1,000 mls @ 150 mls/hr IV ASDIRECTED [facility] Last Admin: 12/16/19 04:27 Dose: 150 mls/hr Sodium Chloride (Normal Saline) 1,000 mls @ 100 mls/hr IV ASDIRECTED [facility] Magnesium Sulfate 4 gm/ Premix 50 mls @ 12.5 mls/hr IV ONETIME ONE Stop: 12/16/19 11:40 Last Admin: 12/16/19 09:31 Dose: Not Given Potassium Chloride 10 meq/ (Premix) 100 mls @ 100 mls/hr IV Q1H [facility] Stop: 12/16/19 11:44 Last Admin: 12/16/19 13:12 Dose: 100 mls/hr Magnesium Sulfate 4 gm/ Premix 50 mls @ 12.5 mls/hr IV ONETIME ONE Stop: 12/16/19 16:59 Last Admin: 12/16/19 14:54 Dose: 12.5 mls/hr Zoledronic Acid 4 mg/ Sodium (Chloride) 105 mls @ 420 mls/hr IV ONETIME ONE Stop: 12/16/19 19:14 Last Admin: 12/16/19 17:59 Dose: 420 mls/hr Magnesium Sulfate 2 gm/ Premix 50 mls @ 25 mls/hr IV ONETIME ONE Stop: 12/17/19 10:06 Pantoprazole Sodium (Protonix) 40 mg PO DAILY [facility] Last Admin: 12/16/19 08:18 Dose: 40 mg Pramipexole Dihydrochloride (Mirapex) 0.125 mg PO BEDTIME [facility] Last Admin: 12/15/19 21:40 Dose: 0.125 mg - Exam Quality Assessment: Supplemental Oxygen General: Alert, Oriented HEENT: Pupils Equal, Mucous Membr. Moist/[place] Sepsis Event Note - Evaluation Sepsis Screening Result: No Definite Risk - Focused Exam Vital Signs: Vital Signs Temp Pulse Resp BP Pulse Ox 12/17/19 08:46 155/72 H 12/17/19 08:43 82 155/72 H 12/17/19 08:20 98.1 F 82 24 H 155/72 H 94 L 12/17/19 05:32 97.5 F 79 20 136/49 L 93 L 12/16/19 23:48 97.9 F 80 16 139/71 92 L Date Exam was Performed: 12/17/19 Time Exam was Performed: 10:52 - Problem List Review Problem List Initiated/Reviewed/Updated: Yes - My Orders Last 24 Hours: My Active Orders 12/16/19 16:04 Consult to Occupational Therapy [OT Evaluation and Treatment] [CONS] Routine 12/16/19 21:00 Insulin Glarg,Human.Rec.Analog [LantUS] 50 unit SUBCUT BEDTIME Rosuvastatin [Crestor] 40 mg PO BEDTIME 12/17/19 03:09 Magnesium Hydroxide [Milk of Magnesia] 30 ml PO ONETIME PRN 12/17/19 05:40 EDUAR, PE AND FLC, SERUM [REF] Routine 12/17/19 08:15 Potassium Chloride [KCl 10 MEQ in Water 100 ML] 10 meq Premix Bag 1 bag IV Q1H 12/17/19 08:45 Sodium Chloride 0.9% [Normal Saline] 1,000 ml IV ASDIRECTED 12/17/19 09:30 fentaNYL [Duragesic] 12 mcg TRDERM Q72H 12/17/19 10:37 DC Romero Catheter [Urinary Catheter Removal] [RC] Per Unit Routine 12/17/19 19:15 Urinary Catheter Insertion [Insert Urinary Catheter] [OM.PC] Q24H 12/20/19 09:30 Remove Patch 0 ea TRDERM Q72H - Plan Plan:: Assessment Hypercalcemia likely secondary to metastatic cancer with breast cancer being high on the differential. Altered mental status likely secondary to hypercalcemia and hypovolemia * Corrected calcium 14.3-->12.6-->12.2 * Calcium increased by 4 mg/dL in less than 2 weeks increasing the likelihood of symptomatic hypercalcemia * Elevated LDH, alkaline phosphatase, and calcium pointing to bone as the cause of the hypercalcemia * AST 92 and total bilirubin 1.5 -elevated * C-reactive protein 25.8 * Reportedly poor oral intake. 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 * Oxycodone 5 mg p.o. every 4 hours as needed pain * Start fentanyl patch 12 mcg every 72 hours. Watch for increased sedation * Recheck C-reactive protein, CBC, and CMP in the morning * Zoledronic acid 4 mg given yesterday * She will likely need SNF placement. Congestive heart failure with preserved ejection fraction * BNP 507. Elevated from 2 days ago when it was 271 * No previous history of heart failure * Diastolic dysfunction (Grade 1) * Requiring 1 to 2 L FiO2 via nasal cannula Plan * Close monitoring of oxygen saturation * Try to wean oxygen * Judicious Lasix use * Careful with rehydration Echocardiogram December 16, 2019 Summary: 1. The left ventricular internal cavity size is normal. 2. Normal left ventricular systolic function. 3. Ventricular injection fraction, by visual estimation, is 60 to 65%. 4. No regional wall motion abnormalities. 5. Impaired relaxation (grade 1) pattern of LV diastolic filling. 6. Moderate asymmetric left ventricular hypertrophy. 7. Trace mitral valve regurgitation. 8. Mild tricuspid valve regurgitation. 9. The right ventricular systolic pressure is mildly elevated at 42.7 mmHg. 10. The inferior vena cava is normal. Diabetes mellitus with peripheral neuropathy and renal insufficiency * Review of her medications shows she is on a large amount of insulin * Hemoglobin A1c done earlier this week 8.8% Plan * Restarted Lantus at 50% of home dose secondary to poor oral intake when she is more awake and taking orally. * Will need meal time insulin. Continue to monitor FSBS closely to determine amount. * Bedside blood sugar 4 times daily * Sliding scale insulin * Continue gabapentin Hypokalemia, hypomagnesemia * Potassium 3.2-->3.3-->3.4 * Magnesium 1.4-->1.8 * Likely secondary to thiazide diuretic and poor oral intake Plan * Replace potassium IV and recheck in the morning * Stop thiazide diuretic Chronic renal insufficiency likely secondary to diabetes and hypertension * Estimated GFR 37-->45-->45 * Blood pressure 149/63 on admission * On 4 antihypertensive medications plus Lasix at home * On Celebrex chronically Plan * Avoid renal toxic medications especially NSAIDs * Stop Celebrex * Continue amlodipine and metoprolol. * Hold valsartan initially * Stop hydrochlorothiazide secondary to elevated calcium Chronic medical illnesses include anxiety, gout, chronic constipation, to include the above. VTE prophylaxis: Lovenox CODE STATUS: Full code Disposition: Admit to floor on telemetry. Likely discharge to SNF.
--- NOTE | 2019-12-17 18:08 | PCM.SN.2 ---
- Free Text/Narrative Note: 12/17/19 IV started 22 guage right upper arm after multiple attempts. Flushes well. Secured per CARMEN. Margaret
[2019-12-17] MEDS: Pantoprazole 40 MG Tab.CR PO SCH (22:04)
[2019-12-17] MEDS: Rosuvastatin 10 MG Tab PO SCH (22:04)
[2019-12-17] MEDS: Insulin Glarg,Human.Rec.Analog 100 Unit/ML SUBCUT SCH (22:06)
[2019-12-17] MEDS ORDERED: traMADol 50 MG Tab PO PRN (22:54)
[2019-12-18] MEDS ORDERED: Bisacodyl 10 MG Supp RECTAL ONE (06:00)
[2019-12-18] MEDS: Sodium Chloride 0.9% 1,000 ML IV SCH (06:48)
[2019-12-18] MEDS ORDERED: Sodium Chloride 0.9% 10 ML Syringe FLUSH PRN (08:30)
--- NOTE | 2019-12-18 10:00 | PCM.PN ---
- General Info Date of Service: 12/18/19 Admission Dx/Problem (Free Text): Admission Diagnosis/Problem Admission Diagnosis/Problem Altered level of consciousness Subjective Update: Fabiana is more lethargic today. She slept most of the afternoon yesterday and all night. This morning she continues to be very lethargic, does wake up enough to eat answer questions but after a minute she falls right back to sleep. When asked about CODE STATUS and asked if she still wanted to be a full code she stated what point is it, but when I tried to clarify she fell asleep and did not answer. - Review of Systems General: Reports: Fatigue, Malaise Musculoskeletal: Reports: Other (Generalized pain) - Patient Data Vitals - Most Recent: Last Vital Signs Temp 98.8 F 12/18/19 06:47 Pulse 92 12/18/19 06:47 Resp 20 12/18/19 06:47 BP 155/62 H 12/18/19 06:47 Pulse Ox 92 L 12/18/19 09:08 Weight - Most Recent: 327 lb 1.6 oz I&O - Last 24 Hours: Intake & Output 12/17/19 12/18/19 12/18/19 22:59 06:59 14:59 Intake Total 1750 900 Output Total 100 Balance 1650 900 Lab Results Last 24 Hours: Laboratory Results - last 24 hr 12/17/19 12/17/19 12/17/19 Range/Units 05:39 11:08 16:59 WBC (3.98-10.04) K/mm3 RBC (3.98-5.22) M/mm3 Hgb (11.2-15.7) gm/dl Hct (34.1-44.9) % MCV (79.4-94.8) fl MCH (25.6-32.2) pg MCHC (32.2-35.5) g/dl RDW Std Deviation (36.4-46.3) fL Plt Count (182-369) K/mm3 MPV (9.4-12.3) fl Neut % (Auto) (34.0-71.1) % Lymph % (Auto) (19.3-51.7) % Crawford % (Auto) (4.7-12.5) % Eos % (Auto) (0.7-5.8) Baso % (Auto) (0.1-1.2) % Neut # (Auto) (1.56-6.13) K/mm3 Lymph # (Auto) (1.18-3.74) K/mm3 Crawford # (Auto) (0.24-0.36) K/mm3 Eos # (Auto) (0.04-0.36) K/mm3 Baso # (Auto) (0.01-0.08) K/mm3 Manual Slide Review Puncture Site ABG pH (7.35-7.45) ABG pCO2 (35.0-45.0) mmHg ABG pO2 (80.0-100.0) mmHg ABG HCO3 (22.0-26.0) meq/L ABG O2 Saturation (96.0-97.0) % ABG Base Excess (-2-2.0) A-a Gradient mmHg O2 Delivery Device Oxygen Flow Rate FiO2 (21.00-100.00) % Sodium (136-145) mEq/L Potassium (3.5-5.1) mEq/L Chloride (98-107) mEq/L Carbon Dioxide (21-32) mEq/L Anion Gap (5-15) BUN (7-18) mg/dL Creatinine (0.55-1.02) mg/dL Est Cr Clr Drug Dosing mL/min Estimated GFR (MDRD) (>60) mL/min BUN/Creatinine Ratio (14-18) Glucose (80-115) mg/dL POC Glucose 193 H 227 H 224 H (80-115) mg/dL Calcium (8.5-10.1) mg/dL Magnesium (1.8-2.4) mg/dl Total Bilirubin (0.2-1.0) mg/dL AST (15-37) U/L ALT (14-59) U/L Alkaline Phosphatase (46-116) U/L Total Protein (6.4-8.2) g/dl Albumin (3.4-5.0) g/dl Globulin gm/dL Albumin/Globulin Ratio (1-2) 12/17/19 12/18/19 12/18/19 Range/Units 22:03 05:37 05:37 WBC 5.76 (3.98-10.04) K/mm3 RBC 2.68 L (3.98-5.22) M/mm3 Hgb 9.5 L (11.2-15.7) gm/dl Hct 23.2 L (34.1-44.9) % MCV 86.6 (79.4-94.8) fl MCH 35.4 H (25.6-32.2) pg MCHC 40.9 H (32.2-35.5) g/dl RDW Std Deviation 50.3 H (36.4-46.3) fL Plt Count 217 (182-369) K/mm3 MPV 9.1 L (9.4-12.3) fl Neut % (Auto) 76.8 H (34.0-71.1) % Lymph % (Auto) 9.9 L (19.3-51.7) % Crawford % (Auto) 11.6 (4.7-12.5) % Eos % (Auto) 0.5 L (0.7-5.8) Baso % (Auto) 0.2 (0.1-1.2) % Neut # (Auto) 4.42 (1.56-6.13) K/mm3 Lymph # (Auto) 0.57 L (1.18-3.74) K/mm3 Crawford # (Auto) 0.67 H (0.24-0.36) K/mm3 Eos # (Auto) 0.03 L (0.04-0.36) K/mm3 Baso # (Auto) 0.01 (0.01-0.08) K/mm3 Manual Slide Review Abnormal smear Puncture Site ABG pH (7.35-7.45) ABG pCO2 (35.0-45.0) mmHg ABG pO2 (80.0-100.0) mmHg ABG HCO3 (22.0-26.0) meq/L ABG O2 Saturation (96.0-97.0) % ABG Base Excess (-2-2.0) A-a Gradient mmHg O2 Delivery Device Oxygen Flow Rate FiO2 (21.00-100.00) % Sodium 135 L (136-145) mEq/L Potassium 3.9 (3.5-5.1) mEq/L Chloride 96 L (98-107) mEq/L Carbon Dioxide 32 (21-32) mEq/L Anion Gap 10.9 (5-15) BUN 32 H (7-18) mg/dL Creatinine 1.1 H (0.55-1.02) mg/dL Est Cr Clr Drug Dosing 52.93 mL/min Estimated GFR (MDRD) 49 (>60) mL/min BUN/Creatinine Ratio 29.1 H (14-18) Glucose 175 H (80-115) mg/dL POC Glucose 228 H (80-115) mg/dL Calcium 9.8 (8.5-10.1) mg/dL Magnesium 2.1 (1.8-2.4) mg/dl Total Bilirubin 1.2 H (0.2-1.0) mg/dL AST 65 H (15-37) U/L ALT 22 (14-59) U/L Alkaline Phosphatase 219 H (46-116) U/L Total Protein 6.7 (6.4-8.2) g/dl Albumin 2.3 L (3.4-5.0) g/dl Globulin 4.4 gm/dL Albumin/Globulin Ratio 0.5 L (1-2) 12/18/19 12/18/19 Range/Units 05:37 09:30 WBC (3.98-10.04) K/mm3 RBC (3.98-5.22) M/mm3 Hgb (11.2-15.7) gm/dl Hct (34.1-44.9) % MCV (79.4-94.8) fl MCH (25.6-32.2) pg MCHC (32.2-35.5) g/dl RDW Std Deviation (36.4-46.3) fL Plt Count (182-369) K/mm3 MPV (9.4-12.3) fl Neut % (Auto) (34.0-71.1) % Lymph % (Auto) (19.3-51.7) % Crawford % (Auto) (4.7-12.5) % Eos % (Auto) (0.7-5.8) Baso % (Auto) (0.1-1.2) % Neut # (Auto) (1.56-6.13) K/mm3 Lymph # (Auto) (1.18-3.74) K/mm3 Crawford # (Auto) (0.24-0.36) K/mm3 Eos # (Auto) (0.04-0.36) K/mm3 Baso # (Auto) (0.01-0.08) K/mm3 Manual Slide Review Puncture Site Lt radial ABG pH 7.47 H (7.35-7.45) ABG pCO2 45.4 H (35.0-45.0) mmHg ABG pO2 70.0 L (80.0-100.0) mmHg ABG HCO3 32.5 H (22.0-26.0) meq/L ABG O2 Saturation 92.3 L (96.0-97.0) % ABG Base Excess 8.1 H (-2-2.0) A-a Gradient 45 mmHg O2 Delivery Device Nasal cannula Oxygen Flow Rate 1.0 FiO2 24.00 (21.00-100.00) % Sodium (136-145) mEq/L Potassium (3.5-5.1) mEq/L Chloride (98-107) mEq/L Carbon Dioxide (21-32) mEq/L Anion Gap (5-15) BUN (7-18) mg/dL Creatinine (0.55-1.02) mg/dL Est Cr Clr Drug Dosing mL/min Estimated GFR (MDRD) (>60) mL/min BUN/Creatinine Ratio (14-18) Glucose (80-115) mg/dL POC Glucose 196 H (80-115) mg/dL Calcium (8.5-10.1) mg/dL Magnesium (1.8-2.4) mg/dl Total Bilirubin (0.2-1.0) mg/dL AST (15-37) U/L ALT (14-59) U/L Alkaline Phosphatase (46-116) U/L Total Protein (6.4-8.2) g/dl Albumin (3.4-5.0) g/dl Globulin gm/dL Albumin/Globulin Ratio (1-2) Cesario Results Last 24 Hours: Microbiology 12/15/19 15:30 Aerobic Blood Culture - Preliminary Blood - Venous NO GROWTH AFTER 2 DAYS Anaerobic Blood Culture - Preliminary NO GROWTH AFTER 2 DAYS 12/15/19 15:20 Aerobic Blood Culture - Preliminary Blood - Venous - Lab Draw NO GROWTH AFTER 2 DAYS Anaerobic Blood Culture - Preliminary NO GROWTH AFTER 2 DAYS 12/15/19 14:37 Urine Culture - Final Urine, Catheterized NO GROWTH AFTER 2 DAYS Med Orders - Current: Current Medications Acetaminophen (Tylenol) 650 mg PO Q4H PRN PRN Reason: Pain (Mild 1-3)/fever Last Admin: 12/17/19 08:37 Dose: 650 mg Allopurinol (Zyloprim) 100 mg PO DAILY [facility] Last Admin: 12/17/19 08:47 Dose: 100 mg Amlodipine Besylate (Norvasc) 10 mg PO DAILY [facility] Last Admin: 12/17/19 08:46 Dose: 10 mg Clopidogrel Bisulfate (Plavix) 75 mg PO DAILY [facility] Last Admin: 12/17/19 08:46 Dose: 75 mg Dextrose/Water (Dextrose 50% In Water) 50 ml IVPUSH ASDIRECTED PRN PRN Reason: Hypoglycemia Duloxetine HCl (Cymbalta) 60 mg PO DAILY [facility] Last Admin: 12/17/19 08:46 Dose: 60 mg Enoxaparin Sodium (Lovenox) 40 mg SUBCUT DAILY [facility] Last Admin: 12/17/19 08:31 Dose: 40 mg Furosemide (Lasix) 20 mg PO DAILY [facility] Gabapentin (Neurontin) 200 mg PO TID [facility] Last Admin: 12/17/19 22:04 Dose: 200 mg Hydralazine HCl (Apresoline) 10 mg IVPUSH Q6H PRN PRN Reason: Hypertension Insulin Glargine (Lantus) 50 unit SUBCUT BEDTIME [facility] Last Admin: 12/17/19 22:06 Dose: 50 units Insulin Human Lispro (Humalog) 0 unit SUBCUT QIDACANDBED [facility]; Protocol Last Admin: 12/17/19 22:07 Dose: 4 units Insulin Human Lispro (Humalog) 5 unit SUBCUT TIDAC [facility] Last Admin: 12/17/19 17:00 Dose: Not Given Magnesium Hydroxide (Milk Of Magnesia) 30 ml PO ONETIME PRN PRN Reason: Constipation Last Admin: 12/17/19 05:30 Dose: 30 ml Metoprolol Succinate (Toprol Xl) 50 mg PO DAILY [facility] Last Admin: 12/17/19 08:43 Dose: 50 mg Ondansetron HCl (Zofran) 4 mg IV Q4H PRN PRN Reason: Nausea/Vomiting Pantoprazole Sodium (Protonix) 40 mg PO BEDTIME [facility] Last Admin: 12/17/19 22:04 Dose: 40 mg Pramipexole Dihydrochloride (Mirapex) 0.125 mg PO TID [facility] Last Admin: 12/17/19 22:04 Dose: 0.125 mg Rosuvastatin Calcium (Crestor) 40 mg PO BEDTIME [facility] Last Admin: 12/17/19 22:04 Dose: 40 mg Sodium Chloride (Saline Flush) 10 ml FLUSH ASDIRECTED PRN PRN Reason: Keep Vein Open Tramadol HCl (Ultram) 50 mg PO Q6H PRN PRN Reason: Pain Discontinued Medications Bisacodyl (Dulcolax) 10 mg RECTAL ONETIME ONE Stop: 12/18/19 06:01 Last Admin: 12/18/19 06:48 Dose: 10 mg Calcitonin [place] (Miacalcin) 600 units SUBCUT ONETIME ONE Stop: 12/15/19 21:51 Last Admin: 12/15/19 22:03 Dose: Not Given Calcitonin [place] (Miacalcin) 600 units SUBCUT ONETIME ONE Stop: 12/16/19 10:01 Fentanyl (Duragesic) 12 mcg TRDERM Q72H [facility] Last Admin: 12/17/19 11:03 Dose: 12 mcg Furosemide (Lasix) 20 mg IVPUSH ONETIME ONE Stop: 12/16/19 00:02 Last Admin: 12/16/19 00:33 Dose: 20 mg Furosemide (Lasix) 20 mg IVPUSH NOW ONE Stop: 12/16/19 09:33 Last Admin: 12/16/19 10:03 Dose: 20 mg Furosemide (Lasix) 20 mg IVPUSH NOW ONE Stop: 12/16/19 17:14 Last Admin: 12/16/19 17:47 Dose: 20 mg Gabapentin (Neurontin) 200 mg PO ONETIME ONE Stop: 12/15/19 21:15 Last Admin: 12/15/19 21:39 Dose: 200 mg Hydralazine HCl (Apresoline) 10 mg IVPUSH Q6H PRN PRN Reason: Hypertension Sodium Chloride (Normal Saline) 1,000 mls @ 150 mls/hr IV ASDIRECTED [facility] Last Admin: 12/15/19 13:10 Dose: 150 mls/hr Potassium Chloride 10 meq/ (Premix) 100 mls @ 100 mls/hr IV Q1H [facility] Stop: 12/15/19 23:29 Last Admin: 12/16/19 00:33 Dose: 100 mls/hr Sodium Chloride (Normal Saline) 1,000 mls @ 150 mls/hr IV ASDIRECTED [facility] Last Admin: 12/16/19 04:27 Dose: 150 mls/hr Sodium Chloride (Normal Saline) 1,000 mls @ 100 mls/hr IV ASDIRECTED [facility] Magnesium Sulfate 4 gm/ Premix 50 mls @ 12.5 mls/hr IV ONETIME ONE Stop: 12/16/19 11:40 Last Admin: 12/16/19 09:31 Dose: Not Given Potassium Chloride 10 meq/ (Premix) 100 mls @ 100 mls/hr IV Q1H [facility] Stop: 12/16/19 11:44 Last Admin: 12/16/19 13:12 Dose: 100 mls/hr Magnesium Sulfate 4 gm/ Premix 50 mls @ 12.5 mls/hr IV ONETIME ONE Stop: 12/16/19 16:59 Last Admin: 12/16/19 14:54 Dose: 12.5 mls/hr Zoledronic Acid 4 mg/ Sodium (Chloride) 105 mls @ 420 mls/hr IV ONETIME ONE Stop: 12/16/19 19:14 Last Admin: 12/16/19 17:59 Dose: 420 mls/hr Magnesium Sulfate 2 gm/ Premix 50 mls @ 25 mls/hr IV ONETIME ONE Stop: 12/17/19 10:06 Last Admin: 12/17/19 16:05 Dose: 25 mls/hr Potassium Chloride 10 meq/ (Premix) 100 mls @ 100 mls/hr IV Q1H [facility] Stop: 12/17/19 12:14 Last Admin: 12/17/19 15:04 Dose: 100 mls/hr Sodium Chloride (Normal Saline) 1,000 mls @ 50 mls/hr IV ASDIRECTED [facility] Last Admin: 12/18/19 06:48 Dose: 50 mls/hr Miscellaneous Information (Remove Patch) 0 ea TRDERM Q72H [facility] Oxycodone HCl (Oxycodone) 5 mg PO Q4H PRN PRN Reason: Pain (moderate 4-6) Last Admin: 12/17/19 08:36 Dose: 5 mg Pantoprazole Sodium (Protonix) 40 mg PO DAILY [facility] Last Admin: 12/16/19 08:18 Dose: 40 mg Pramipexole Dihydrochloride (Mirapex) 0.125 mg PO BEDTIME [facility] Last Admin: 12/15/19 21:40 Dose: 0.125 mg - Exam Quality Assessment: Supplemental Oxygen General: Alert, Oriented HEENT: Pupils Equal, Mucous Membr. Moist/[place] Neck: Supple Lungs: Clear to Auscultation, Normal Respiratory Effort Cardiovascular: Regular Rate, Regular Rhythm GI/Abdominal Exam: Normal Bowel Sounds, Soft, Non-Tender, No Organomegaly, No Distention (Obese), No Abnormal Bruit Extremities: Normal Inspection, Normal Capillary Refill, Pedal Edema (Trace to 1 + bilateral pitting edema no erythema.). No: Non-Tender (Tender bilateral lower extremities equally) Skin: Warm, Dry, Intact Neurological: No New Focal Deficit Psy/Mental Status: No: Alert (Sleepy) Sepsis Event Note - Evaluation Sepsis Screening Result: No Definite Risk - Focused Exam Vital Signs: Vital Signs Temp Pulse Resp BP Pulse Ox Pulse Ox 12/18/19 09:08 92 L 12/18/19 06:47 98.8 F 92 20 155/62 H 91 L 12/18/19 00:59 98.6 F 76 20 151/50 H 92 L 12/17/19 22:01 99.0 F 95 20 161/81 H 93 L Date Exam was Performed: 12/18/19 Time Exam was Performed: 11:43 - Problem List Review Problem List Initiated/Reviewed/Updated: Yes - My Orders Last 24 Hours: My Active Orders 12/17/19 10:37 DC Romero Catheter [Urinary Catheter Removal] [RC] Per Unit Routine 12/17/19 17:00 Insulin Lispro [HumaLOG] 5 unit SUBCUT TIDAC 12/17/19 19:15 Urinary Catheter Insertion [Insert Urinary Catheter] [OM.PC] Q24H 12/17/19 20:18 Communication Order [RC] DAILY 12/17/19 22:43 Bladder Scan [RC] ASDIRECTED Communication Order [RC] ASDIRECTED Notify Provider Intake and Out [RC] ASDIRECTED Urinary Catheter Assessment [RC] ASDIRECTED 12/17/19 22:45 Insert Urinary Catheter [OM.PC] ASDIRECTED 12/17/19 22:54 traMADol [Ultram] 50 mg PO Q6H PRN 12/18/19 00:36 Patient Status [ADT] Routine 12/18/19 08:30 Sodium Chloride 0.9% [Saline Flush] 10 ml FLUSH ASDIRECTED PRN Convert IV to Saline Lock [OM.PC] Routine 12/18/19 08:46 Communication Order [RC] 04,16 12/18/19 09:00 Furosemide [Lasix] 20 mg PO DAILY 12/18/19 09:38 CXR [Chest 1V Frontal] [CR] Routine - Plan Plan:: Assessment Hypercalcemia likely secondary to metastatic cancer with breast cancer being high on the differential. Altered mental status likely secondary to hypercalcemia and hypovolemia * Corrected calcium 14.3-->12.6-->12.2-->11.2 * Calcium increased by 4 mg/dL in less than 2 weeks increasing the likelihood of symptomatic hypercalcemia * Elevated LDH, alkaline phosphatase, and calcium pointing to bone as the cause of the hypercalcemia * AST 92--> and total bilirubin 1.5 -elevated * C-reactive protein 25.8 * Reportedly poor oral intake. 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 This increases my suspicion that her altered mental status is from secondary cause. This may be due to sedating medications like Mirapex and gabapentin. Patient was tried on a fentanyl patch for a short time yesterday because of her severe pain, but she was sedated so it was stopped after only a few hours. Plan * Decrease Mirapex to 0.125 twice daily and gabapentin to 200 mg twice daily. * Screening for multiple myeloma with serum protein electrophoresis with immunofixation and quantitation of immunoglobulins, free light chain assay, beta -2 microglobulin. * Stop all narcotics yesterday and started tramadol 50 mg every 6 hours as needed pain. She has not received any tramadol overnight * Recheck C-reactive protein, CBC, and CMP in the morning * She will likely need SNF placement. Congestive heart failure with preserved ejection fraction * BNP 507. Elevated from 2 days ago when it was 271 * No previous history of heart failure * Diastolic dysfunction (Grade 1) * Requiring 1 to 2 L FiO2 via nasal cannula Plan * Close monitoring of oxygen saturation * Try to wean oxygen * Restart home Lasix 20 mg daily * Careful with rehydration Echocardiogram December 16, 2019 Summary: 1. The left ventricular internal cavity size is normal. 2. Normal left ventricular systolic function. 3. Ventricular injection fraction, by visual estimation, is 60 to 65%. 4. No regional wall motion abnormalities. 5. Impaired relaxation (grade 1) pattern of LV diastolic filling. 6. Moderate asymmetric left ventricular hypertrophy. 7. Trace mitral valve regurgitation. 8. Mild tricuspid valve regurgitation. 9. The right ventricular systolic pressure is mildly elevated at 42.7 mmHg. 10. The inferior vena cava is normal. Diabetes mellitus with peripheral neuropathy and renal insufficiency * Review of her medications shows she is on a large amount of insulin * Hemoglobin A1c done earlier this week 8.8% Plan * Restarted Lantus at 50% of home dose secondary to poor oral intake when she is more awake and taking orally. * Will need meal time insulin. Continue to monitor FSBS closely to determine amount. * Bedside blood sugar 4 times daily * Sliding scale insulin * Continue gabapentin Hypokalemia, hypomagnesemia -resolved Metabolic alkalosis, compensated * Likely secondary to loop diuretic Plan * Decrease Lasix Chronic renal insufficiency likely secondary to diabetes and hypertension * Estimated GFR 37-->45-->45-->49 * Blood pressure 149/63 on admission * On 4 antihypertensive medications plus Lasix at home * On Celebrex chronically Plan * Avoid renal toxic medications especially NSAIDs * Stop Celebrex * Continue amlodipine and metoprolol. * Hold valsartan initially * Stop hydrochlorothiazide secondary to elevated calcium Chronic medical illnesses include anxiety, gout, chronic constipation, to include the above. VTE prophylaxis: Lovenox CODE STATUS: Full code Disposition: Admit to floor on telemetry. Likely discharge to SNF.
--- NOTE | 2019-12-18 10:11 | CR ---
Chest: Portable view of the chest was obtained. Comparison: Prior chest x-ray of 12/15/19. Heart size is felt to be slightly enlarged. Fractured sternotomy wires are noted. Surgical clips are seen within both axillary regions. Lungs are clear with no acute parenchymal change. Impression: 1. Findings as noted above. 2. Nothing acute is appreciated on portable chest x-ray. Diagnostic code #2 This report was dictated in MDT
[2019-12-18] MEDS: Insulin Lispro 100 Units/ML 3 ML Vial SUBCUT SCH ×7 (10:36→21:03)
[2019-12-18] MEDS: Allopurinol 100 MG Tab PO SCH (10:38)
[2019-12-18] MEDS: Pramipexole 0.25 MG Tab PO SCH ×2 (10:38→20:57)
[2019-12-18] MEDS: Gabapentin 100 MG Cap PO SCH ×2 (10:38→20:57)
[2019-12-18] MEDS: amLODIPine 10 MG Tab PO SCH (10:39)
[2019-12-18] MEDS: DULoxetine 30 MG Cap PO SCH (10:40)
[2019-12-18] MEDS: Metoprolol Succinate 50 MG Tab.ER PO SCH (10:40)
[2019-12-18] MEDS: Clopidogrel 75 MG Tab PO SCH (10:40)
[2019-12-18] MEDS: Enoxaparin 40 MG/0.4 ML Syringe SUBCUT SCH (10:41)
[2019-12-18] MEDS: Furosemide 20 MG Tab PO SCH (10:41)
[2019-12-18] MEDS: Rosuvastatin 10 MG Tab PO SCH (20:56)
[2019-12-18] MEDS: Insulin Glarg,Human.Rec.Analog 100 Unit/ML SUBCUT SCH (20:57)
[2019-12-18] MEDS: Pantoprazole 40 MG Tab.CR PO SCH (20:57)
--- NOTE | 2019-12-19 07:43 | PCM.PN ---
- General Info Date of Service: 12/19/19 Admission Dx/Problem (Free Text): Admission Diagnosis/Problem Admission Diagnosis/Problem Altered level of consciousness Subjective Update: Patient is much more awake and alert this morning. She continues to have diffuse pain. Food intake continues to be poor. She has had 2 bowel movements yesterday. Blood sugars have been between 148 and 296. Functional Status: Denies: Pain Controlled - Review of Systems General: Reports: Fatigue HEENT: Reports: No Symptoms Pulmonary: Reports: No Symptoms Cardiovascular: Reports: No Symptoms Gastrointestinal: Reports: No Symptoms Musculoskeletal: Reports: Other (Diffuse pain) - Patient Data Vitals - Most Recent: Last Vital Signs Temp 97.7 F 12/19/19 06:24 Pulse 82 12/19/19 06:24 Resp 24 H 12/19/19 06:24 BP 153/58 H 12/19/19 06:24 Pulse Ox 93 L 12/19/19 06:24 Weight - Most Recent: 328 lb 14.4 oz I&O - Last 24 Hours: Intake & Output 12/18/19 12/19/19 12/19/19 22:59 06:59 14:59 Intake Total 620 600 Balance 620 600 Lab Results Last 24 Hours: Laboratory Results - last 24 hr 12/18/19 12/18/19 12/18/19 Range/Units 09:30 11:54 16:00 Puncture Site Lt radial ABG pH 7.47 H (7.35-7.45) ABG pCO2 45.4 H (35.0-45.0) mmHg ABG pO2 70.0 L (80.0-100.0) mmHg ABG HCO3 32.5 H (22.0-26.0) meq/L ABG O2 Saturation 92.3 L (96.0-97.0) % ABG Base Excess 8.1 H (-2-2.0) A-a Gradient 45 mmHg O2 Delivery Device Nasal cannula Oxygen Flow Rate 1.0 FiO2 24.00 (21.00-100.00) % POC Glucose 296 H 184 H (80-115) mg/dL 12/18/19 12/19/19 Range/Units 20:29 05:36 Puncture Site ABG pH (7.35-7.45) ABG pCO2 (35.0-45.0) mmHg ABG pO2 (80.0-100.0) mmHg ABG HCO3 (22.0-26.0) meq/L ABG O2 Saturation (96.0-97.0) % ABG Base Excess (-2-2.0) A-a Gradient mmHg O2 Delivery Device Oxygen Flow Rate FiO2 (21.00-100.00) % POC Glucose 242 H 148 H (80-115) mg/dL [place] Results Last 24 Hours: Microbiology 12/15/19 15:30 Aerobic Blood Culture - Preliminary Blood - Venous NO GROWTH AFTER 3 DAYS Anaerobic Blood Culture - Preliminary NO GROWTH AFTER 3 DAYS 12/15/19 15:20 Aerobic Blood Culture - Preliminary Blood - Venous - Lab Draw NO GROWTH AFTER 3 DAYS Anaerobic Blood Culture - Preliminary NO GROWTH AFTER 3 DAYS Med Orders - Current: Current Medications Acetaminophen (Tylenol) 650 mg PO Q4H PRN PRN Reason: Pain (Mild 1-3)/fever Last Admin: 12/17/19 08:37 Dose: 650 mg Allopurinol (Zyloprim) 100 mg PO DAILY [facility] Last Admin: 12/18/19 10:38 Dose: 100 mg Amlodipine Besylate (Norvasc) 10 mg PO DAILY [facility] Last Admin: 12/18/19 10:39 Dose: 10 mg Clopidogrel Bisulfate (Plavix) 75 mg PO DAILY [facility] Last Admin: 12/18/19 10:40 Dose: 75 mg Dextrose/Water (Dextrose 50% In Water) 50 ml IVPUSH ASDIRECTED PRN PRN Reason: Hypoglycemia Duloxetine HCl (Cymbalta) 60 mg PO DAILY [facility] Last Admin: 12/18/19 10:40 Dose: 60 mg Enoxaparin Sodium (Lovenox) 40 mg SUBCUT DAILY [facility] Last Admin: 12/18/19 10:41 Dose: 40 mg Furosemide (Lasix) 20 mg PO DAILY [facility] Last Admin: 12/18/19 10:41 Dose: 20 mg Gabapentin (Neurontin) 200 mg PO BID [facility] Last Admin: 12/18/19 20:57 Dose: 200 mg Hydralazine HCl (Apresoline) 10 mg IVPUSH Q6H PRN PRN Reason: Hypertension Insulin Glargine (Lantus) 50 unit SUBCUT BEDTIME [facility] Last Admin: 12/18/19 20:57 Dose: 50 units Insulin Human Lispro (Humalog) 0 unit SUBCUT QIDACANDBED [facility]; Protocol Last Admin: 12/18/19 21:03 Dose: 4 units Insulin Human Lispro (Humalog) 5 unit SUBCUT TIDAC [facility] Last Admin: 12/18/19 18:05 Dose: 5 units Magnesium Hydroxide (Milk Of Magnesia) 30 ml PO ONETIME PRN PRN Reason: Constipation Last Admin: 12/17/19 05:30 Dose: 30 ml Metoprolol Succinate (Toprol Xl) 50 mg PO DAILY [facility] Last Admin: 12/18/19 10:40 Dose: 50 mg Ondansetron HCl (Zofran) 4 mg IV Q4H PRN PRN Reason: Nausea/Vomiting Pantoprazole Sodium (Protonix) 40 mg PO BEDTIME [facility] Last Admin: 12/18/19 20:57 Dose: 40 mg Pramipexole Dihydrochloride (Mirapex) 0.125 mg PO BID [facility] Last Admin: 12/18/19 20:57 Dose: 0.125 mg Rosuvastatin Calcium (Crestor) 40 mg PO BEDTIME [facility] Last Admin: 12/18/19 20:56 Dose: 40 mg Sodium Chloride (Saline Flush) 10 ml FLUSH ASDIRECTED PRN PRN Reason: Keep Vein Open Tramadol HCl (Ultram) 50 mg PO Q6H PRN PRN Reason: Pain Discontinued Medications Bisacodyl (Dulcolax) 10 mg RECTAL ONETIME ONE Stop: 12/18/19 06:01 Last Admin: 12/18/19 06:48 Dose: 10 mg Calcitonin [place] (Miacalcin) 600 units SUBCUT ONETIME ONE Stop: 12/15/19 21:51 Last Admin: 12/15/19 22:03 Dose: Not Given Calcitonin [place] (Miacalcin) 600 units SUBCUT ONETIME ONE Stop: 12/16/19 10:01 Fentanyl (Duragesic) 12 mcg TRDERM Q72H [facility] Last Admin: 12/17/19 11:03 Dose: 12 mcg Furosemide (Lasix) 20 mg IVPUSH ONETIME ONE Stop: 12/16/19 00:02 Last Admin: 12/16/19 00:33 Dose: 20 mg Furosemide (Lasix) 20 mg IVPUSH NOW ONE Stop: 12/16/19 09:33 Last Admin: 12/16/19 10:03 Dose: 20 mg Furosemide (Lasix) 20 mg IVPUSH NOW ONE Stop: 12/16/19 17:14 Last Admin: 12/16/19 17:47 Dose: 20 mg Gabapentin (Neurontin) 200 mg PO ONETIME ONE Stop: 12/15/19 21:15 Last Admin: 12/15/19 21:39 Dose: 200 mg Gabapentin (Neurontin) 200 mg PO TID [facility] Last Admin: 12/18/19 10:38 Dose: 200 mg Hydralazine HCl (Apresoline) 10 mg IVPUSH Q6H PRN PRN Reason: Hypertension Sodium Chloride (Normal Saline) 1,000 mls @ 150 mls/hr IV ASDIRECTED [facility] Last Admin: 12/15/19 13:10 Dose: 150 mls/hr Potassium Chloride 10 meq/ (Premix) 100 mls @ 100 mls/hr IV Q1H [facility] Stop: 12/15/19 23:29 Last Admin: 12/16/19 00:33 Dose: 100 mls/hr Sodium Chloride (Normal Saline) 1,000 mls [facility] Admin: 12/16/19 04:27 Dose: 150 mls/hr Sodium Chloride (Normal Saline) 1,000 mls @ 100 [facility]ls[facility] Magnesium Sulfate 4 gm/ Premix 50 mls @ 12.5 mls/hr IV ONETIME ONE Stop: 12/16/19 11:40 Last Admin: 12/16/19 09:31 Dose: Not Given Potassium Chloride 10 meq/ (Premix) 100 mls @ 100 mls/hr IV Q1H [facility] Stop: 12/16/19 11:44 Last Admin: 12/16/19 13:12 Dose: 100 mls/hr Magnesium Sulfate 4 gm/ Premix 50 mls @ 12.5 mls/hr IV ONETIME ONE Stop: 12/16/19 16:59 Last Admin: 12/16/19 14:54 Dose: 12.5 mls/hr Zoledronic Acid 4 mg/ Sodium (Chloride) 105 mls @ 420 mls/hr IV ONETIME ONE Stop: 12/16/19 19:14 Last Admin: 12/16/19 17:59 Dose: 420 mls/hr Magnesium Sulfate 2 gm/ Premix 50 mls @ 25 mls/hr IV ONETIME ONE Stop: 12/17/19 10:06 Last Admin: 12/17/19 16:05 Dose: 25 mls/hr Potassium Chloride 10 meq/ (Premix) 100 mls @ 100 mls/hr IV Q1H [facility] Stop: 12/17/19 12:14 Last Admin: 12/17/19 15:04 Dose: 100 mls/hr Sodium Chloride (Normal Saline) 1,000 mls @ 50 mls/hr IV ASDIRECTED [facility] Last Admin: 12/18/19 06:48 Dose: 50 mls/hr Miscellaneous Information (Remove Patch) 0 ea TRDERM Q72H [facility] Oxycodone HCl (Oxycodone) 5 mg PO Q4H PRN PRN Reason: Pain (moderate 4-6) Last Admin: 12/17/19 08:36 Dose: 5 mg Pantoprazole Sodium (Protonix) 40 mg PO DAILY [facility] Last Admin: 12/16/19 08:18 Dose: 40 mg Pramipexole Dihydrochloride (Mirapex) 0.125 mg PO BEDTIME [facility] Last Admin: 12/15/19 21:40 Dose: 0.125 mg Pramipexole Dihydrochloride (Mirapex) 0.125 mg PO TID [facility] Last Admin: 12/18/19 10:38 Dose: 0.125 mg - Exam Quality Assessment: Supplemental Oxygen General: Alert, Oriented HEENT: Pupils Equal, Mucous Membr. Moist/[place] Neck: Supple Lungs: Normal Respiratory Effort, Decreased Breath Sounds Cardiovascular: Regular Rate, Regular Rhythm GI/Abdominal Exam: Normal Bowel Sounds, Soft, Non-Tender, No Distention Extremities: Normal Inspection, Normal Capillary Refill, Pedal Edema (Trace to 1 + bilateral pitting edema) Skin: Warm, Dry, Intact Neurological: No New Focal Deficit Psy/Mental Status: Alert Sepsis Event Note - Evaluation Sepsis Screening Result: No Definite Risk - Focused Exam Vital Signs: Vital Signs Temp Pulse Resp BP Pulse Ox 12/19/19 06:24 97.7 F 82 24 H 153/58 H 93 L 12/19/19 01:01 98.2 F 89 16 142/57 H 92 L Date Exam was Performed: 12/19/19 Time Exam was Performed: 10:55 - Problem List Review Problem List Initiated/Reviewed/Updated: Yes - My Orders Last 24 Hours: My Active Orders 12/18/19 08:30 Sodium Chloride 0.9% [Saline Flush] 10 ml FLUSH ASDIRECTED PRN Convert IV to Saline Lock [OM.PC] Routine 12/18/19 08:46 Communication Order [RC] 04,16 12/18/19 09:00 Furosemide [Lasix] 20 mg PO DAILY 12/18/19 14:00 Antiembolic Devices [RC] PER UNIT ROUTINE PAMELA Hose [Antiembolic Hose] [OM.PC] Routine 12/18/19 21:00 Gabapentin [Neurontin] 200 mg PO BID Pramipexole [Mirapex] 0.125 mg PO BID - Plan Plan:: Assessment Hypercalcemia likely secondary to metastatic cancer with breast cancer being high on the differential. Altered mental status likely secondary to hypercalcemia and hypovolemia * Corrected calcium 14.3-->12.6-->12.2-->11.2 * Calcium increased by 4 mg/dL in less than 2 weeks increasing the likelihood of symptomatic hypercalcemia * Elevated LDH, alkaline phosphatase, and calcium pointing to bone as the cause of the hypercalcemia * AST 92--> and total bilirubin 1.5 -elevated * C-reactive protein 25.8 * Reportedly poor oral intake. 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 This increases my suspicion that her altered mental status is from secondary cause. This may be due to sedating medications like Mirapex and gabapentin. Patient was tried on a fentanyl patch for a short time yesterday because of her severe pain, but she was sedated so it was stopped after only a few hours. Plan * Decrease Mirapex to 0.125 twice daily and gabapentin to 200 mg twice daily. * Screening for multiple myeloma with serum protein electrophoresis with immunofixation and quantitation of immunoglobulins, free light chain assay, beta -2 microglobulin. * Stop all narcotics yesterday and started tramadol 50 mg every 6 hours as needed pain. She has not received any tramadol overnight * Recheck C-reactive protein, CBC, and CMP in the morning * She will likely need SNF placement. Congestive heart failure with preserved ejection fraction * BNP 507. Elevated from 2 days ago when it was 271 * No previous history of heart failure * Diastolic dysfunction (Grade 1) * Requiring 1 to 2 L FiO2 via nasal cannula Plan * Close monitoring of oxygen saturation * Try to wean oxygen * Restart home Lasix 20 mg daily * Careful with rehydration Echocardiogram December 16, 2019 Summary: 1. The left ventricular internal cavity size is normal. 2. Normal left ventricular systolic function. 3. Ventricular injection fraction, by visual estimation, is 60 to 65%. 4. No regional wall motion abnormalities. 5. Impaired relaxation (grade 1) pattern of LV diastolic filling. 6. Moderate asymmetric left ventricular hypertrophy. 7. Trace mitral valve regurgitation. 8. Mild tricuspid valve regurgitation. 9. The right ventricular systolic pressure is mildly elevated at 42.7 mmHg. 10. The inferior vena cava is normal. Diabetes mellitus with peripheral neuropathy and renal insufficiency * Home Tresiba is 100 units at night * Hemoglobin A1c done earlier this week 8.8% Plan * Increase Lantus from 50 to 60 units at night * Humalog 5 units after meals of 50% or greater. * Bedside blood sugar 4 times daily * Sliding scale insulin * Gabapentin was decreased to 200 mg twice daily secondary to sedation Hypokalemia, hypomagnesemia -resolved Metabolic alkalosis, compensated * Likely secondary to loop diuretic Plan * Resume home Lasix 20 mg p.o. daily. May consider stopping. Chronic renal insufficiency likely secondary to diabetes and hypertension * Estimated GFR 37-->45-->45-->49 * Blood pressure 149/63 on admission * On 4 antihypertensive medications plus Lasix at home * On Celebrex chronically -held as inpatient Plan * Avoid renal toxic medications especially NSAIDs * Stop Celebrex * Continue amlodipine and metoprolol. * Hold valsartan initially * Stop hydrochlorothiazide secondary to elevated calcium Chronic medical illnesses include anxiety, gout, chronic constipation, to include the above. VTE prophylaxis: Lovenox CODE STATUS: Full code Disposition: Admit to floor on telemetry. Likely discharge to SNF.
[2019-12-19] MEDS: Enoxaparin 40 MG/0.4 ML Syringe SUBCUT SCH (08:57)
[2019-12-19] MEDS: Pramipexole 0.25 MG Tab PO SCH ×2 (08:58→20:33)
[2019-12-19] MEDS: Gabapentin 100 MG Cap PO SCH ×2 (08:59→20:33)
[2019-12-19] MEDS: DULoxetine 30 MG Cap PO SCH (08:59)
[2019-12-19] MEDS: Clopidogrel 75 MG Tab PO SCH (09:00)
[2019-12-19] MEDS: Metoprolol Succinate 50 MG Tab.ER PO SCH (09:00)
[2019-12-19] MEDS: Furosemide 20 MG Tab PO SCH (09:00)
[2019-12-19] MEDS: Allopurinol 100 MG Tab PO SCH (09:01)
[2019-12-19] MEDS: Insulin Lispro 100 Units/ML 3 ML Vial SUBCUT SCH ×7 (09:01→21:20)
[2019-12-19] MEDS: amLODIPine 10 MG Tab PO SCH (09:01)
[2019-12-19] MEDS: Acetaminophen/HYDROcodone 325-5 MG Tab PO PRN ×2 (11:44→20:33)
[2019-12-19] MEDS: Rosuvastatin 10 MG Tab PO SCH (20:33)
[2019-12-19] MEDS: Pantoprazole 40 MG Tab.CR PO SCH (20:34)
[2019-12-19] MEDS: Nystatin Topical Powder 15 GM Bottle TOP SCH (20:34)
[2019-12-19] MEDS: Insulin Glarg,Human.Rec.Analog 100 Unit/ML SUBCUT SCH (20:35)
[2019-12-20] MEDS: Insulin Lispro 100 Units/ML 3 ML Vial SUBCUT SCH ×7 (07:58→22:06)
[2019-12-20] MEDS: amLODIPine 10 MG Tab PO SCH (08:04)
[2019-12-20] MEDS: Gabapentin 100 MG Cap PO SCH ×2 (08:05→21:48)
[2019-12-20] MEDS: DULoxetine 30 MG Cap PO SCH (08:05)
[2019-12-20] MEDS: Metoprolol Succinate 50 MG Tab.ER PO SCH (08:05)
[2019-12-20] MEDS: Clopidogrel 75 MG Tab PO SCH (08:05)
[2019-12-20] MEDS: Allopurinol 100 MG Tab PO SCH (08:05)
[2019-12-20] MEDS: Furosemide 20 MG Tab PO SCH (08:05)
[2019-12-20] MEDS: Pramipexole 0.25 MG Tab PO SCH ×2 (08:06→21:48)
[2019-12-20] MEDS: Enoxaparin 40 MG/0.4 ML Syringe SUBCUT SCH (08:11)
[2019-12-20] MEDS: Nystatin Topical Powder 15 GM Bottle TOP SCH ×3 (08:12→21:50)
[2019-12-20] MEDS: Potassium Chloride 10% 20 MEQ/15 ML Soln 15 ML UD Cup PO SCH ×3 (10:24→21:50)
[2019-12-20] MEDS: Acetaminophen 325 MG Tab PO PRN ×2 (11:18→21:48)
[2019-12-20] MEDS: Acetaminophen/HYDROcodone 325-5 MG Tab PO PRN ×2 (16:08→23:57)
--- NOTE | 2019-12-20 16:23 | PCM.PN ---
- General Info Date of Service: 12/20/19 Admission Dx/Problem (Free Text): Admission Diagnosis/Problem Admission Diagnosis/Problem Altered level of consciousness Subjective Update: She continues to be more alert but still has a poor appetite. Pain seems to be better controlled. Functional Status: Reports: Pain Controlled - Review of Systems General: Reports: No Symptoms HEENT: Reports: No Symptoms Pulmonary: Reports: No Symptoms Cardiovascular: Reports: No Symptoms Gastrointestinal: Reports: No Symptoms Musculoskeletal: Reports: No Symptoms Skin: Reports: No Symptoms Psychiatric: Reports: No Symptoms - Patient Data Vitals - Most Recent: Last Vital Signs Temp 97.7 F 12/20/19 15:33 Pulse 69 12/20/19 15:33 Resp 20 12/20/19 15:33 BP 131/47 L 12/20/19 15:33 Pulse Ox 91 L 12/20/19 15:33 Weight - Most Recent: 327 lb 6.4 oz I&O - Last 24 Hours: Intake & Output 12/20/19 12/20/19 12/20/19 06:59 14:59 22:59 Intake Total 600 520 120 Balance 600 520 120 Lab Results Last 24 Hours: Laboratory Results - last 24 hr 12/19/19 12/19/19 12/20/19 Range/Units 16:40 20:31 05:53 WBC 8.63 (3.98-10.04) K/mm3 RBC 3.62 L (3.98-5.22) M/mm3 Hgb 10.8 L (11.2-15.7) gm/dl Hct 30.5 L (34.1-44.9) % MCV 84.3 (79.4-94.8) fl MCH 29.8 (25.6-32.2) pg MCHC 35.4 (32.2-35.5) g/dl RDW Std Deviation 53.5 H (36.4-46.3) fL Plt Count 229 (182-369) K/mm3 MPV 10.0 (9.4-12.3) fl Neut % (Auto) 71.7 H (34.0-71.1) % Lymph % (Auto) 11.9 L (19.3-51.7) % [place] % (Auto) 12.2 (4.7-12.5) % Eos % (Auto) 2.8 (0.7-5.8) Baso % (Auto) 0.2 (0.1-1.2) % Neut # (Auto) 6.19 H (1.56-6.13) K/mm3 Lymph # (Auto) 1.03 L (1.18-3.74) K/mm3 [place] # (Auto) 1.05 H (0.24-0.36) K/mm3 Eos # (Auto) 0.24 (0.04-0.36) K/mm3 Baso # (Auto) 0.02 (0.01-0.08) K/mm3 Manual Slide Review Abnormal smear Sodium (136-145) mEq/L Potassium (3.5-5.1) mEq/L Chloride (98-107) mEq/L Carbon Dioxide (21-32) mEq/L Anion Gap (5-15) BUN (7-18) mg/dL Creatinine (0.55-1.02) mg/dL Est Cr Clr Drug Dosing mL/min Estimated GFR (MDRD) (>60) mL/min BUN/Creatinine Ratio (14-18) Glucose (80-115) mg/dL POC Glucose 145 H 134 H (80-115) mg/dL Calcium (8.5-10.1) mg/dL Magnesium (1.8-2.4) mg/dl Total Bilirubin (0.2-1.0) mg/dL AST (15-37) U/L ALT (14-59) U/L Alkaline Phosphatase (46-116) U/L Total Protein (6.4-8.2) g/dl Albumin (3.4-5.0) g/dl Globulin gm/dL Albumin/Globulin Ratio (1-2) 12/20/19 12/20/19 12/20/19 Range/Units 05:53 06:43 11:11 WBC (3.98-10.04) K/mm3 RBC (3.98-5.22) M/mm3 Hgb (11.2-15.7) gm/dl Hct (34.1-44.9) % MCV (79.4-94.8) fl MCH (25.6-32.2) pg MCHC (32.2-35.5) g/dl RDW Std Deviation (36.4-46.3) fL Plt Count (182-369) K/mm3 MPV (9.4-12.3) fl Neut % (Auto) (34.0-71.1) % Lymph % (Auto) (19.3-51.7) % [place] % (Auto) (4.7-12.5) % Eos % (Auto) (0.7-5.8) Baso % (Auto) (0.1-1.2) % Neut # (Auto) (1.56-6.13) K/mm3 Lymph # (Auto) (1.18-3.74) K/mm3 [place] # (Auto) (0.24-0.36) K/mm3 Eos # (Auto) (0.04-0.36) K/mm3 Baso # (Auto) (0.01-0.08) K/mm3 Manual Slide Review Sodium 138 (136-145) mEq/L Potassium 3.1 L (3.5-5.1) mEq/L Chloride 98 (98-107) mEq/L Carbon Dioxide 31 (21-32) mEq/L Anion Gap 12.1 (5-15) BUN 33 H (7-18) mg/dL Creatinine 1.2 H (0.55-1.02) mg/dL Est Cr Clr Drug Dosing 48.52 mL/min Estimated GFR (MDRD) 45 (>60) mL/min BUN/Creatinine Ratio 27.5 H (14-18) Glucose 99 (80-115) mg/dL POC Glucose 106 198 H (80-115) mg/dL Calcium 9.2 (8.5-10.1) mg/dL Magnesium 2.1 (1.8-2.4) mg/dl Total Bilirubin 1.8 H (0.2-1.0) mg/dL AST 54 H (15-37) U/L ALT 25 (14-59) U/L Alkaline Phosphatase 193 H (46-116) U/L Total Protein 6.8 (6.4-8.2) g/dl Albumin 2.3 L (3.4-5.0) g/dl Globulin 4.5 gm/dL Albumin/Globulin Ratio 0.5 L (1-2) [place] Results Last 24 Hours: Microbiology 12/15/19 15:30 Aerobic Blood Culture - Preliminary Blood - Venous NO GROWTH AFTER 5 DAYS Anaerobic Blood Culture - Preliminary NO GROWTH AFTER 5 DAYS 12/15/19 15:20 Aerobic Blood Culture - Preliminary Blood - Venous - Lab Draw NO GROWTH AFTER 5 DAYS Anaerobic Blood Culture - Preliminary NO GROWTH AFTER 5 DAYS Med Orders - Current: Current Medications Acetaminophen (Tylenol) 650 mg PO Q4H PRN PRN Reason: Pain (Mild 1-3)/fever Last Admin: 12/20/19 11:18 Dose: 650 mg Hydrocodone Bitart/Acetaminophen ([place] 325-5 Mg) 1 tab PO Q4H PRN PRN Reason: Pain (severe 7-10) Last Admin: 12/20/19 16:08 Dose: 1 tab Allopurinol (Zyloprim) 100 mg PO DAILY [facility] Last Admin: 12/20/19 08:05 Dose: 100 mg Amlodipine Besylate (Norvasc) 10 mg PO DAILY [facility] Last Admin: 12/20/19 08:04 Dose: 10 mg Clopidogrel Bisulfate (Plavix) 75 mg PO DAILY [facility] Last Admin: 12/20/19 08:05 Dose: 75 mg Dextrose/Water (Dextrose 50% In Water) 50 ml IVPUSH ASDIRECTED PRN PRN Reason: Hypoglycemia Duloxetine HCl (Cymbalta) 60 mg PO DAILY [facility] Last Admin: 12/20/19 08:05 Dose: 60 mg Enoxaparin Sodium (Lovenox) 40 mg SUBCUT DAILY [facility] Last Admin: 12/20/19 08:11 Dose: 40 mg Furosemide (Lasix) 20 mg PO DAILY [facility] Last Admin: 12/20/19 08:05 Dose: 20 mg Gabapentin (Neurontin) 200 mg PO BID [facility] Last Admin: 12/20/19 08:05 Dose: 200 mg Hydralazine HCl (Apresoline) 10 mg IVPUSH Q6H PRN PRN Reason: Hypertension Insulin Glargine (Lantus) 60 unit SUBCUT BEDTIME [facility] Last Admin: 12/19/19 20:35 Dose: 60 units Insulin Human Lispro (Humalog) 0 unit SUBCUT QIDACANDBED [facility]; Protocol Last Admin: 12/20/19 12:37 Dose: 2 units Insulin Human Lispro (Humalog) 5 unit SUBCUT TIDAC [facility] Last Admin: 12/20/19 13:48 Dose: Not Given Magnesium Hydroxide (Milk Of Magnesia) 30 ml PO ONETIME PRN PRN Reason: Constipation Last Admin: 12/17/19 05:30 Dose: 30 ml Metoprolol Succinate (Toprol Xl) 50 mg PO DAILY [facility] Last Admin: 12/20/19 08:05 Dose: 50 mg Nystatin (Nystop) 1 gm TOP TID [facility] Last Admin: 12/20/19 16:07 Dose: 1 applic Ondansetron HCl (Zofran) 4 mg IV Q4H PRN PRN Reason: Nausea/Vomiting Pantoprazole Sodium (Protonix) 40 mg PO BEDTIME [facility] Last Admin: 12/19/19 20:34 Dose: 40 mg Potassium Chloride (Potassium Chloride Solution) 20 meq PO TID [facility] Last Admin: 12/20/19 16:07 Dose: 20 meq Pramipexole Dihydrochloride (Mirapex) 0.125 mg PO BID [facility] Last Admin: 12/20/19 08:06 Dose: 0.125 mg Rosuvastatin Calcium (Crestor) 40 mg PO BEDTIME [facility] Last Admin: 12/19/19 20:33 Dose: 40 mg Sodium Chloride (Saline Flush) 10 ml FLUSH ASDIRECTED PRN PRN Reason: Keep Vein Open Tramadol HCl (Ultram) 50 mg PO Q6H PRN PRN Reason: Pain Last Admin: 12/19/19 09:04 Dose: 50 mg Discontinued Medications Bisacodyl (Dulcolax) 10 mg RECTAL ONETIME ONE Stop: 12/18/19 06:01 Last Admin: 12/18/19 06:48 Dose: 10 mg Calcitonin [place] (Miacalcin) 600 units SUBCUT ONETIME ONE Stop: 12/15/19 21:51 Last Admin: 12/15/19 22:03 Dose: Not Given Calcitonin [place] (Miacalcin) 600 units SUBCUT ONETIME ONE Stop: 12/16/19 10:01 Fentanyl (Duragesic) 12 mcg TRDERM Q72H [facility] Last Admin: 12/17/19 11:03 Dose: 12 mcg Furosemide (Lasix) 20 mg IVPUSH ONETIME ONE Stop: 12/16/19 00:02 Last Admin: 12/16/19 00:33 Dose: 20 mg Furosemide (Lasix) 20 mg IVPUSH NOW ONE Stop: 12/16/19 09:33 Last Admin: 12/16/19 10:03 Dose: 20 mg Furosemide (Lasix) 20 mg IVPUSH NOW ONE Stop: 12/16/19 17:14 Last Admin: 12/16/19 17:47 Dose: 20 mg Gabapentin (Neurontin) 200 mg PO ONETIME ONE Stop: 12/15/19 21:15 Last Admin: 12/15/19 21:39 Dose: 200 mg Gabapentin (Neurontin) 200 mg PO TID [facility] Last Admin: 12/18/19 10:38 Dose: 200 mg Hydralazine HCl (Apresoline) 10 mg IVPUSH Q6H PRN PRN Reason: Hypertension Sodium Chloride (Normal Saline) 1,000 mls @ 150 mls/hr IV ASDIRECTED [facility] Last Admin: 12/15/19 13:10 Dose: 150 mls/hr Potassium Chloride 10 meq/ (Premix) 100 mls @ 100 mls/hr IV Q1H [facility] Stop: 12/15/19 23:29 Last Admin: 12/16/19 00:33 Dose: 100 mls/hr Sodium Chloride (Normal Saline) 1,000 mls @ [facility] Admin: 12/16/19 04:27 Dose: 150 mls/hr Sodium Chloride (Normal Saline) 1,000 mls @ 100 mls/hr IV ASDIRECTED [facility] Magnesium Sulfate 4 gm/ Premix 50 mls @ 12.5 mls/hr IV ONETIME ONE Stop: 12/16/19 11:40 Last Admin: 12/16/19 09:31 Dose: Not Given Potassium Chloride 10 meq/ (Premix) 100 mls @ 100 mls/hr IV Q1H [facility] Stop: 12/16/19 11:44 Last Admin: 12/16/19 13:12 Dose: 100 mls/hr Magnesium Sulfate 4 gm/ Premix 50 mls @ 12.5 mls/hr IV ONETIME ONE Stop: 12/16/19 16:59 Last Admin: 12/16/19 14:54 Dose: 12.5 mls/hr Zoledronic Acid 4 mg/ Sodium (Chloride) 105 mls @ 420 mls/hr IV ONETIME ONE Stop: 12/16/19 19:14 Last Admin: 12/16/19 17:59 Dose: 420 mls/hr Magnesium Sulfate 2 gm/ Premix 50 mls @ 25 mls/hr IV ONETIME ONE Stop: 12/17/19 10:06 Last Admin: 12/17/19 16:05 Dose: 25 mls/hr Potassium Chloride 10 meq/ (Premix) 100 mls @ 100 mls/hr IV Q1H [facility] Stop: 12/17/19 12:14 Last Admin: 12/17/19 15:04 Dose: 100 mls/hr Sodium Chloride (Normal Saline) 1,000 mls @ 50 mls/hr IV ASDIRECTED [facility] Last Admin: 12/18/19 06:48 Dose: 50 mls/hr Insulin Glargine (Lantus) 50 unit SUBCUT BEDTIME [facility] Last Admin: 12/18/19 20:57 Dose: 50 units Miscellaneous Information (Remove Patch) 0 ea TRDERM Q72H [facility] Oxycodone HCl (Oxycodone) 5 mg PO Q4H PRN PRN Reason: Pain (moderate 4-6) Last Admin: 12/17/19 08:36 Dose: 5 mg Pantoprazole Sodium (Protonix) 40 mg PO DAILY [facility] Last Admin: 12/16/19 08:18 Dose: 40 mg Pramipexole Dihydrochloride (Mirapex) 0.125 mg PO BEDTIME [facility] Last Admin: 12/15/19 21:40 Dose: 0.125 mg Pramipexole Dihydrochloride (Mirapex) 0.125 mg PO TID [facility] Last Admin: 12/18/19 10:38 Dose: 0.125 mg - Exam Quality Assessment: Supplemental Oxygen General: Alert HEENT: Pupils Equal, Mucous Membr. Moist/[place] Neck: Supple Lungs: Clear to Auscultation, Normal Respiratory Effort Cardiovascular: Regular Rate, Regular Rhythm GI/Abdominal Exam: Normal Bowel Sounds, Soft, Non-Tender, No Organomegaly, No Distention Back Exam: Normal Inspection Extremities: Normal Inspection, Normal Range of Motion, Non-Tender, Normal Capillary Refill Psy/Mental Status: Alert Sepsis Event Note - Evaluation Sepsis Screening Result: No Definite Risk - Focused Exam Vital Signs: Vital Signs Temp Pulse Resp BP Pulse Ox 12/20/19 15:33 97.7 F 69 20 131/47 L 91 L 12/20/19 12:58 97.0 F 68 16 149/49 H 94 L 12/20/19 08:05 70 145/78 H 12/20/19 08:04 145/78 H 12/20/19 07:48 97.9 F 70 20 145/87 H 98 Date Exam was Performed: 12/20/19 Time Exam was Performed: 16:24 - Problem List Review Problem List Initiated/Reviewed/Updated: Yes - My Orders Last 24 Hours: My Active Orders 12/19/19 21:00 Insulin Glarg,Human.Rec.Analog [LantUS] 60 unit SUBCUT BEDTIME Nystatin [Nystop] 1 gm TOP TID 12/20/19 09:00 Potassium Chloride [Potassium Chloride Solution] 20 meq PO TID 12/20/19 10:08 Consult to Dietary [Consult to [employer]er] [CONS] Routine 12/20/19 Lunch Consistent Carbohydrate Diet [DIET] - Plan Plan:: Assessment Hypercalcemia likely secondary to metastatic cancer with breast cancer being high on the differential. 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 This increases my suspicion that her altered mental status is from secondary cause. This may be due to sedating medications like Mirapex and gabapentin. Patient was tried on a fentanyl patch for a short time yesterday because of her severe pain, but she was sedated so it was stopped after only a few hours. * Sedation seems to be better since decreasing Mirapex and gabapentin Plan * Decrease Mirapex to 0.125 twice daily and gabapentin to 200 mg twice daily. * Screening for multiple myeloma with serum protein electrophoresis with immunofixation and quantitation of immunoglobulins, free light chain assay, beta -2 microglobulin. * Stop all narcotics yesterday and started tramadol 50 mg every 6 hours as needed pain. She has not received any tramadol overnight * Recheck C-reactive protein, CBC, and CMP in the morning * She will likely need SNF placement. Congestive heart failure with preserved ejection fraction * BNP 507. Elevated from 2 days ago when it was 271 * No previous history of heart failure * Diastolic dysfunction (Grade 1) * Requiring 1 to 2 L FiO2 via nasal cannula Plan * Close monitoring of oxygen saturation * Try to wean oxygen * Restart home Lasix 20 mg daily * Careful with rehydration Echocardiogram December 16, 2019 Summary: 1. The left ventricular internal cavity size is normal. 2. Normal left ventricular systolic function. 3. Ventricular injection fraction, by visual estimation, is 60 to 65%. 4. No regional wall motion abnormalities. 5. Impaired relaxation (grade 1) pattern of LV diastolic filling. 6. Moderate asymmetric left ventricular hypertrophy. 7. Trace mitral valve regurgitation. 8. Mild tricuspid valve regurgitation. 9. The right ventricular systolic pressure is mildly elevated at 42.7 mmHg. 10. The inferior vena cava is normal. Diabetes mellitus with peripheral neuropathy and renal insufficiency * Home Tresiba is 100 units at night * Hemoglobin A1c done earlier this week 8.8% * Blood sugars better controlled Plan * Increase Lantus 60 units at night * Humalog 5 units after meals of 50% or greater. * Bedside blood sugar 4 times daily * Sliding scale insulin * Gabapentin was decreased to 200 mg twice daily secondary to sedation Hypokalemia, hypomagnesemia -resolved Metabolic alkalosis, compensated * Likely secondary to loop diuretic Plan * Resume home Lasix 20 mg p.o. daily. May consider stopping. Chronic renal insufficiency likely secondary to diabetes and hypertension * Estimated GFR 37-->45-->45-->49--> 45 * Blood pressure 149/63 on admission * On 4 antihypertensive medications plus Lasix at home * On Celebrex chronically -held as inpatient Plan * Avoid renal toxic medications especially NSAIDs * Stop Celebrex * Continue amlodipine and metoprolol. * Hold valsartan initially * Stop hydrochlorothiazide secondary to elevated calcium Chronic medical illnesses include anxiety, gout, chronic constipation, to include the above. VTE prophylaxis: Lovenox CODE STATUS: Full code Disposition: Admit to floor on telemetry. Likely discharge to SNF.
[2019-12-20] MEDS: Rosuvastatin 10 MG Tab PO SCH (21:48)
[2019-12-20] MEDS: Pantoprazole 40 MG Tab.CR PO SCH (21:48)
[2019-12-20] MEDS: Insulin Glarg,Human.Rec.Analog 100 Unit/ML SUBCUT SCH (22:20)
[2019-12-21] MEDS: Acetaminophen 325 MG Tab PO PRN ×2 (05:20→10:31)
[2019-12-21] MEDS: Insulin Lispro 100 Units/ML 3 ML Vial SUBCUT SCH ×5 (06:51→12:04)
[2019-12-21] MEDS: Enoxaparin 40 MG/0.4 ML Syringe SUBCUT SCH (08:59)
[2019-12-21] MEDS: Potassium Chloride 10% 20 MEQ/15 ML Soln 15 ML UD Cup PO SCH (09:00)
[2019-12-21] MEDS: Nystatin Topical Powder 15 GM Bottle TOP SCH (09:02)
[2019-12-21] MEDS: Furosemide 20 MG Tab PO SCH (09:03)
[2019-12-21] MEDS: Pramipexole 0.25 MG Tab PO SCH (09:03)
[2019-12-21] MEDS: DULoxetine 30 MG Cap PO SCH (09:03)
[2019-12-21] MEDS: Allopurinol 100 MG Tab PO SCH (09:03)
[2019-12-21] MEDS: Clopidogrel 75 MG Tab PO SCH (09:03)
[2019-12-21] MEDS: amLODIPine 10 MG Tab PO SCH (09:04)
[2019-12-21] MEDS: Gabapentin 100 MG Cap PO SCH (09:04)
[2019-12-21] MEDS: Metoprolol Succinate 50 MG Tab.ER PO SCH (09:04)
--- NOTE | 2019-12-21 09:34 | PCM.DCSUM1 ---
Discharge Summary - Hospital Course HPI Initial Comments: 69-year-old female who lives at [facility] assisted-living was brought into the emergency department with worsening severe generalized pain. Patient has been seen in the emergency department 4 times in just over 2 weeks. Family states that the pain seemed to first start 3 or 4 weeks ago and initially she complained of arm pain and rib pain. This was a 9 out of 10 severity. Now her whole body hurts and the pain is worsening. Initial emergency department visit on November 27 her corrected calcium was 10.5 and today's corrected calcium was 14.3. Patient has a history of breast cancer treated with lumpectomy and radical lymph node dissection in the early . 2 days ago she was seen again at the emergency department and calcium corrected for hypoalbuminemia was 13.3. She was started on a fentanyl patch and since there was concern about metastatic bone disease, elevated LDH, calcium, and alkaline phosphatase, a bone scan was ordered. Bone scan has not been done yet, but I am told it can be done tomorrow. Fentanyl patch of 12 mcg/h was placed yesterday afternoon at 1. Son states that when they came home from the emergency department 2 days ago she was so weak she could not even get out of the car. She also had change in her mental status becoming more sedated. Initially it was felt that possibly the fentanyl patch had something to do with sedation, but it was only placed yesterday at 1 PM and this morning when she woke up it was missing. She is taking poor oral intake and not getting adequate nutrition. When I was in to interview her she was unable to answer most questions except when I squeeze her legs that she did complain of pain. Son also stated that she had oxygenation in the 70s and 80s the last couple of days. When I was in she was on 2 L with oxygen saturation of 100%. She has no history of lung disease or congestive heart failure. 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 Differential includes breast cancer and multiple myeloma.UA did show 1+ protein , 1+ occult blood, 10-20 WBCs, 10-20 RBCs, and 10-20 epithelial cells. White count was 8.43, hemoglobin 12.3, platelets 197, sodium normal at 140, potassium low at 3.2, BUN 49, creatinine 1.4, BUN/creatinine ratio 35, glucose 130, corrected calcium 14.3, albumin 2.9, magnesium 1.8, lactic acid 1.4, proBNP 507 , alkaline phosphatase 256, AST 92, total bilirubin 1.5, ALT 17, C-reactive protein 25.8. EKG showed normal sinus rhythm with a ventricular rate of 80 bpm. RSR prime in V1 with a nonspecific IVCD. Missing lead in V2. Poor R wave progression and nonspecific T wave flattening in lead III. Nonspecific ST depression in lead I and aVL. Past medical history includes diabetes, hypertension, CVA, peripheral neuropathy , coronary artery disease with an NV in the 90s, CABG, chronic renal insufficiency stage III, gout, chronic constipation. Stopped tobacco years ago and no alcohol. Diagnosis: Stroke: No - Discharge Data Discharge Date: 12/21/19 Discharge Disposition: DC/Tfer to SNF 03 Condition: Good - Referral to Home Health Primary Care Physician: Dmitry Horton MD - Patient Summary/Data Consults: Consultations 12/15/19 19:07 PT Evaluation and Treatment [CONS] Routine 12/16/19 16:04 Consult to Occupational Therapy [OT Evaluation and Treatment] [CONS] Routine 12/20/19 10:08 Consult to Dietary [Consult to [facility]] [CONS] Routine Hospital Course: Patient was admitted with altered mental status thought to be secondary to a rapid rise in her calcium, hypovolemia, and medication. With IV fluids and addition of furosemide her corrected calcium came down below 14. Patient was then given zoledronic acid 4 mg for her hypercalcemia. CT of the brain showed lytic lesions of the skull and a follow-up bone scan demonstrated activity within the skull likely metastatic in etiology and activity within the ribs which could be from changes from previous trauma or less likely metastatic disease. Patient does have a history of breast cancer from approximately 20 years ago and she states that she did develop right breast pain and rib pain over the last month. Screening for multiple myeloma was also performed with a serum protein electrophoresis with immunofixation and quantitation of immunoglobulins, free light chain assay, and beta-2 microglobulin. Labs are still pending. It was difficult to control her pain without severely sedating her. We ended up decreasing her gabapentin and her Mirapex and adding Ultram and [place]. Fentanyl patch was tried both as an outpatient and inpatient and she became severely sedated both times. Patient continues to have significant left lower extremity pain, but it is much better at discharge and less tender with palpation. She also has a poor appetite and is requiring nutritional supplements. Patient is requiring 1 to 2 L of O2 via nasal cannula. Patient was also found to have heart failure with preserved ejection fraction. Echocardiogram December 16, 2019 Summary: 1. The left ventricular internal cavity size is normal. 2. Normal left ventricular systolic function. 3. Ventricular injection fraction, by visual estimation, is 60 to 65%. 4. No regional wall motion abnormalities. 5. Impaired relaxation (grade 1) pattern of LV diastolic filling. 6. Moderate asymmetric left ventricular hypertrophy. 7. Trace mitral valve regurgitation. 8. Mild tricuspid valve regurgitation. 9. The right ventricular systolic pressure is mildly elevated at 42.7 mmHg. 10. The inferior vena cava is normal. Patient is planning on consulting with oncology and family was then determined with her course of action. - Patient Instructions Diet: Diabetic Diet Activity: As Tolerated Driving: Do Not Drive Other/Special Instructions: Basic metabolic panel in the next 2 to 3 days. Follow-up with primary care provider this week. Establish with oncologist. - Discharge Plan *PRESCRIPTION DRUG MONITORING PROGRAM REVIEWED*: Not Applicable *COPY OF PRESCRIPTION DRUG MONITORING REPORT IN PATIENT JUAN CARLOS: Not Applicable Prescriptions/Med Rec: Acetaminophen/HYDROcodone [Jerusalem 325-5 MG] 1 tab PO Q4H PRN #30 tablet PRN Reason: Pain (Severe 7-10) amLODIPine [Norvasc] 10 mg PO DAILY #60 tab Gabapentin [Neurontin] 200 mg PO BID #60 cap Insulin Degludec [Tresiba] 80 units SQ BEDTIME #1 vial Insulin Lispro [Humalog] 15 units SQ ACDINNER #1 vial Nystatin [Nystop] 1 gm TOP TID #2 bottle Potassium Chloride [Potassium Chloride Solution] 20 meq PO QAM #450 ml Pramipexole [Mirapex] 0.125 mg PO BID #60 tablet traMADol [Ultram] 50 mg PO Q6H PRN #30 tablet PRN Reason: Pain (Moderate 4-6) Home Medications: Home Meds Clopidogrel [Plavix] 75 mg PO DAILY 09/08/17 [History] DULoxetine [Cymbalta] 60 mg PO DAILY 09/08/17 [History] Pantoprazole [ProTONIX] 40 mg PO BEDTIME 09/08/17 [History] Rosuvastatin [Crestor] 40 mg PO BEDTIME 09/08/17 [History] allopurinoL [Zyloprim] 100 mg PO DAILY 09/08/17 [History] Insulin Lispro [HumaLOG] 15 units SQ ACBREAKFAST 07/21/19 [History] Insulin Lispro [HumaLOG] 15 units SQ ACLUNCH 07/21/19 [History] Estrogens, Conjugated [Premarin Vaginal Crm] 1 applic VAG MOTH 11/28/19 [History ] Furosemide [Lasix] 20 mg PO DAILY 12/13/19 [History] Insulin Lispro [Humalog] 0 unit SQ BEDTIME PRN 12/15/19 [History] Metoprolol Succinate 50 mg PO DAILY 12/15/19 [History] Acetaminophen/HYDROcodone [Jerusalem 325-5 MG] 1 tab PO Q4H PRN #30 tablet 12/21/19 [Rx] Gabapentin [Neurontin] 200 mg PO BID #60 cap 12/21/19 [Rx] Insulin Degludec [Tresiba] 80 units SQ BEDTIME #1 vial 12/21/19 [Rx] Insulin Lispro [Humalog] 15 units SQ ACDINNER #1 vial 12/21/19 [Rx] Nystatin [Nystop] 1 gm TOP TID #2 bottle 12/21/19 [Rx] Pantoprazole [ProTONIX] 40 mg PO BEDTIME tab.cr 12/21/19 [Rx] Potassium Chloride [Potassium Chloride Solution] 20 meq PO QAM #450 ml 12/21/19 [Rx] Pramipexole [Mirapex] 0.125 mg PO BID #60 tablet 12/21/19 [Rx] amLODIPine [Norvasc] 10 mg PO DAILY #60 tab 12/21/19 [Rx] traMADol [Ultram] 50 mg PO Q6H PRN #30 tablet 12/21/19 [Rx] Oxygen Therapy Mode: Nasal Cannula Oxygen Flow Rate (L/min): 2 Patient Handouts: Type 2 Diabetes Mellitus, Diagnosis, Adult, Heart Failure, Diagnosis Forms: ED Department Discharge Referrals: Dmitry Horton MD [Primary Care Provider] - - Discharge Summary/Plan Comment DC Time >30 min.: Yes Discharge Summary/Plan Comment: Discharged to [facility] in stable condition. Follow-up with primary care provider Establish with oncologist. - General Info Date of Service: 12/21/19 Admission Dx/Problem (Free Text: Admission Diagnosis/Problem Admission Diagnosis/Problem Altered level of consciousness Subjective Update: Patient continues to be much more awake and alert. She does continue to complain of bilateral lower extremity pain with left being worse than right. - Review of Systems General: Reports: No Symptoms HEENT: Reports: No Symptoms Pulmonary: Reports: No Symptoms Cardiovascular: Reports: No Symptoms Musculoskeletal: Reports: Leg Pain - Patient Data Vitals - Most Recent: Last Vital Signs Temp 97.7 F 12/20/19 23:59 Pulse 91 12/21/19 09:04 Resp 19 12/20/19 23:59 BP 167/94 H 12/21/19 09:04 Pulse Ox 95 12/20/19 23:59 Weight - Most Recent: 323 lb 14.4 oz I&O - Last 24 hours: Intake & Output 12/20/19 12/21/19 12/21/19 22:59 06:59 14:59 Intake Total 120 650 Balance 120 650 Lab Results - Last 24 hrs: Laboratory Results - last 24 hr 12/20/19 12/20/19 12/20/19 Range/Units 11:11 17:28 21:45 Sodium (136-145) mEq/L Potassium (3.5-5.1) mEq/L Chloride (98-107) mEq/L Carbon Dioxide (21-32) mEq/L Anion Gap (5-15) BUN (7-18) mg/dL Creatinine (0.55-1.02) mg/dL Est Cr Clr Drug Dosing mL/min Estimated GFR (MDRD) (>60) mL/min BUN/Creatinine Ratio (14-18) Glucose (80-115) mg/dL POC Glucose 198 H 261 H 195 H (80-115) mg/dL Calcium (8.5-10.1) mg/dL 12/21/19 12/21/19 Range/Units 05:50 06:50 Sodium 136 (136-145) mEq/L Potassium 3.7 (3.5-5.1) mEq/L Chloride 98 (98-107) mEq/L Carbon Dioxide 31 (21-32) mEq/L Anion Gap 10.7 (5-15) BUN 26 H (7-18) mg/dL Creatinine 1.1 H (0.55-1.02) mg/dL Est Cr Clr Drug Dosing 52.93 mL/min Estimated GFR (MDRD) 49 (>60) mL/min BUN/Creatinine Ratio 23.6 H (14-18) Glucose 168 H (80-115) mg/dL POC Glucose 194 H (80-115) mg/dL Calcium 9.0 (8.5-10.1) mg/dL HU Results - Last 24 hrs: Microbiology 12/15/19 15:30 Aerobic Blood Culture - Preliminary Blood - Venous NO GROWTH AFTER 5 DAYS Anaerobic Blood Culture - Preliminary NO GROWTH AFTER 5 DAYS 12/15/19 15:20 Aerobic Blood Culture - Preliminary Blood - Venous - Lab Draw NO GROWTH AFTER 5 DAYS Anaerobic Blood Culture - Preliminary NO GROWTH AFTER 5 DAYS Med Orders - Current: Current Medications Acetaminophen (Tylenol) 650 mg PO Q4H PRN PRN Reason: Pain (Mild 1-3)/fever Last Admin: 12/21/19 05:20 Dose: 650 mg Hydrocodone Bitart/Acetaminophen (Jerusalem 325-5 Mg) 1 tab PO Q4H PRN PRN Reason: Pain (severe 7-10) Last Admin: 12/20/19 23:57 Dose: 1 tab Allopurinol (Zyloprim) 100 mg PO DAILY [facility] Last Admin: 12/21/19 09:03 Dose: 100 mg Amlodipine Besylate (Norvasc) 10 mg PO DAILY [facility] Last Admin: 12/21/19 09:04 Dose: 10 mg Clopidogrel Bisulfate (Plavix) 75 mg PO DAILY [facility] Last Admin: 12/21/19 09:03 Dose: 75 mg Dextrose/Water (Dextrose 50% In Water) 50 ml IVPUSH ASDIRECTED PRN PRN Reason: Hypoglycemia Duloxetine HCl (Cymbalta) 60 mg PO DAILY [facility] Last Admin: 12/21/19 09:03 Dose: 60 mg Enoxaparin Sodium (Lovenox) 40 mg SUBCUT DAILY [facility] Last Admin: 12/21/19 08:59 Dose: 40 mg Furosemide (Lasix) 20 mg PO DAILY [facility] Last Admin: 12/21/19 09:03 Dose: 20 mg Gabapentin (Neurontin) 200 mg PO BID [facility] Last Admin: 12/21/19 09:04 Dose: 200 mg Hydralazine HCl (Apresoline) 10 mg IVPUSH Q6H PRN PRN Reason: Hypertension Insulin Glargine (Lantus) 60 unit SUBCUT BEDTIME [facility] Last Admin: 12/20/19 22:20 Dose: 60 units Insulin Human Lispro (Humalog) 0 unit SUBCUT QIDACANDBED [facility]; Protocol Last Admin: 12/21/19 06:51 Dose: 2 units Insulin Human Lispro (Humalog) 5 unit SUBCUT TIDAC [facility] Last Admin: 12/21/19 08:58 Dose: 5 units Magnesium Hydroxide (Milk Of Magnesia) 30 ml PO ONETIME PRN PRN Reason: Constipation Last Admin: 12/17/19 05:30 Dose: 30 ml Metoprolol Succinate (Toprol Xl) 50 mg PO DAILY [facility] Last Admin: 12/21/19 09:04 Dose: 50 mg Nystatin (Nystop) 1 gm TOP TID [facility] Last Admin: 12/21/19 09:02 Dose: 1 applic Ondansetron HCl (Zofran) 4 mg IV Q4H PRN PRN Reason: Nausea/Vomiting Pantoprazole Sodium (Protonix) 40 mg PO BEDTIME [facility] Last Admin: 12/20/19 21:48 Dose: 40 mg Potassium Chloride (Potassium Chloride Solution) 20 meq PO TID [facility] Last Admin: 12/21/19 09:00 Dose: 20 meq Pramipexole Dihydrochloride (Mirapex) 0.125 mg PO BID [facility] Last Admin: 12/21/19 09:03 Dose: 0.125 mg Rosuvastatin Calcium (Crestor) 40 mg PO BEDTIME [facility] Last Admin: 12/20/19 21:48 Dose: 40 mg Sodium Chloride (Saline Flush) 10 ml FLUSH ASDIRECTED PRN PRN Reason: Keep Vein Open Tramadol HCl (Ultram) 50 mg PO Q6H PRN PRN Reason: Pain Last Admin: 12/19/19 09:04 Dose: 50 mg Discontinued Medications Bisacodyl (Dulcolax) 10 mg RECTAL ONETIME ONE Stop: 12/18/19 06:01 Last Admin: 12/18/19 06:48 Dose: 10 mg Calcitonin [place] (Miacalcin) 600 units SUBCUT ONETIME ONE Stop: 12/15/19 21:51 Last Admin: 12/15/19 22:03 Dose: Not Given Calcitonin [place] (Miacalcin) 600 units SUBCUT ONETIME ONE Stop: 12/16/19 10:01 Fentanyl (Duragesic) 12 mcg TRDERM Q72H [facility] Last Admin: 12/17/19 11:03 Dose: 12 mcg Furosemide (Lasix) 20 mg IVPUSH ONETIME ONE Stop: 12/16/19 00:02 Last Admin: 12/16/19 00:33 Dose: 20 mg Furosemide (Lasix) 20 mg IVPUSH NOW ONE Stop: 12/16/19 09:33 Last Admin: 12/16/19 10:03 Dose: 20 mg Furosemide (Lasix) 20 mg IVPUSH NOW ONE Stop: 12/16/19 17:14 Last Admin: 12/16/19 17:47 Dose: 20 mg Gabapentin (Neurontin) 200 mg PO ONETIME ONE Stop: 12/15/19 21:15 Last Admin: 12/15/19 21:39 Dose: 200 mg Gabapentin (Neurontin) 200 mg PO TID [facility] Last Admin: 12/18/19 10:38 Dose: 200 mg Hydralazine HCl (Apresoline) 10 mg IVPUSH Q6H PRN PRN Reason: Hypertension Sodium Chloride (Normal Saline) 1,000 mls @ 150 mls/hr IV ASDIRECTED [facility] Last Admin: 12/15/19 13:10 Dose: 150 mls/hr Potassium Chloride 10 meq/ (Premix) 100 mls @ 100 mls/hr IV Q1H [facility] Stop: 12/15/19 23:29 Last Admin: 12/16/19 00:33 Dose: 100 mls/hr Sodium Chloride (Normal Saline) 1,000 mls @ 150 mls/hr IV ASDIRECTED [facility] Last Admin: 12/16/19 04:27 Dose: 150 mls/hr Sodium Chloride (Normal Saline) 1,000 mls @ 100 mls/hr IV ASDIRECTED [facility] Magnesium Sulfate 4 gm/ Premix 50 mls @ 12.5 mls/hr IV ONETIME ONE Stop: 12/16/19 11:40 Last Admin: 12/16/19 09:31 Dose: Not Given Potassium Chloride 10 meq/ (Premix) 100 mls @ 100 mls/hr IV Q1H [facility] Stop: 12/16/19 11:44 Last Admin: 12/16/19 13:12 Dose: 100 mls/hr Magnesium Sulfate 4 gm/ Premix 50 mls @ 12.5 mls/hr IV ONETIME ONE Stop: 12/16/19 16:59 Last Admin: 12/16/19 14:54 Dose: 12.5 mls/hr Zoledronic Acid 4 mg/ Sodium (Chloride) 105 mls @ 420 mls/hr IV ONETIME ONE Stop: 12/16/19 19:14 Last Admin: 12/16/19 17:59 Dose: 420 mls/hr Magnesium Sulfate 2 gm/ Premix 50 mls @ 25 mls/hr IV ONETIME ONE Stop: 12/17/19 10:06 Last Admin: 12/17/19 16:05 Dose: 25 mls/hr Potassium Chloride 10 meq/ (Premix) 100 mls @ 100 mls/hr IV Q1H [facility] Stop: 12/17/19 12:14 Last Admin: 12/17/19 15:04 Dose: 100 mls/hr Sodium Chloride (Normal Saline) 1,000 mls @ 50 mls/hr IV ASDIRECTED [facility] Last Admin: 12/18/19 06:48 Dose: 50 mls/hr Insulin Glargine (Lantus) 50 unit SUBCUT BEDTIME [facility] Last Admin: 12/18/19 20:57 Dose: 50 units Miscellaneous Information (Remove Patch) 0 ea TRDERM Q72H [facility] Oxycodone HCl (Oxycodone) 5 mg PO Q4H PRN PRN Reason: Pain (moderate 4-6) Last Admin: 12/17/19 08:36 Dose: 5 mg Pantoprazole Sodium (Protonix) 40 mg PO DAILY [facility] Last Admin: 12/16/19 08:18 Dose: 40 mg Pramipexole Dihydrochloride (Mirapex) 0.125 mg PO BEDTIME [facility] Last Admin: 12/15/19 21:40 Dose: 0.125 mg Pramipexole Dihydrochloride (Mirapex) 0.125 mg PO TID [facility] Last Admin: 12/18/19 10:38 Dose: 0.125 mg - Exam Quality Assessment: Reports: Supplemental Oxygen General: Reports: Alert HEENT: Reports: Pupils Equal, Mucous Membr. Moist/Shepherd Neck: Reports: Supple Lungs: Reports: Clear to Auscultation, Normal Respiratory Effort Cardiovascular: Reports: Regular Rate, Regular Rhythm GI/Abdominal Exam: Normal Bowel Sounds, Soft, Non-Tender, No Organomegaly, No Distention, No Abnormal Bruit Back Exam: Reports: Normal Inspection, Full Range of Motion Extremities: Normal Capillary Refill, Leg Pain (Significantly decreased tenderness to the lower extremities compared to admission) Neurological: Reports: No New Focal Deficit
[2019-12-21 13:31] VITALS: BP 145/63; PULSE 85
== END 2019-12-21 12:59 | DRG 291 ==
LOC: JD.ED 12:38 → JD.MS 17:09
PROVIDERS: ADMIT Family Medicine; ATTEND Family Medicine
DX: R41.82 Altered mental status, unspecified (principal); I50.30 Unspecified diastolic (congestive) heart failure; I13.0 Hypertensive heart and chronic kidney disease with heart failure and stage 1 through stage 4 chronic kidney disease, or unspecified chronic kidney disease; I50.31 Acute diastolic (congestive) heart failure; C79.51 Secondary malignant neoplasm of bone; E11.65 Type 2 diabetes mellitus with hyperglycemia; E87.3 Alkalosis; E83.52 Hypercalcemia; E86.1 Hypovolemia; I25.10 Atherosclerotic heart disease of native coronary artery without angina pectoris; M10.9 Gout, unspecified; N18.3 Chronic kidney disease, stage 3 (moderate); K59.09 Other constipation; E11.22 Type 2 diabetes mellitus with diabetic chronic kidney disease; H54.7 Unspecified visual loss; E78.00 Pure hypercholesterolemia, unspecified; K21.9 Gastro-esophageal reflux disease without esophagitis; E11.42 Type 2 diabetes mellitus with diabetic polyneuropathy; F41.9 Anxiety disorder, unspecified; E87.6 Hypokalemia; Z85.3 Personal history of malignant neoplasm of breast; I25.2 Old myocardial infarction; Z95.1 Presence of aortocoronary bypass graft; Z79.4 Long term (current) use of insulin; Z79.899 Other long term (current) drug therapy; Z87.440 Personal history of urinary (tract) infections; Z79.02 Long term (current) use of antithrombotics/antiplatelets; Z98.49 Cataract extraction status, unspecified eye; Z90.49 Acquired absence of other specified parts of digestive tract; Z90.89 Acquired absence of other organs; Z86.73 Personal history of transient ischemic attack (TIA), and cerebral infarction without residual deficits; E11.40 Type 2 diabetes mellitus with diabetic neuropathy, unspecified; Z20.828 Contact with and (suspected) exposure to other viral communicable diseases
CPT/HCPCS: 36415; 70450; 71045; 80053; 81001; 82977; 83605; 83735; 83880; 84484; 85025; 86140; 87040 ×2; 87086; 93005 ×2; 96360; 96361; 99285; J7030; 36600; 51702; 51798; 78306; 78306-26; 80048; 82232; 82784; 82803; 82962; 83883; 84100; 84155; 84165; 86334; 87641; 93010; 93306; 94761; 97110-GO; 97110-GP; 97163-GP; 97166-GO; 97530-GO; 97530-GP; 99214-GT; 99223; 99232; 99239; A9270-GY; J1650; J1815-GY; J1940; J3475; J3480; J3489; J7050; U0002